=== PATIENT | male | born 1970 | race Caucasian/White ===

== ENCOUNTER → 2018-07-31 | Outpatient (REF) | payer MEDICARE | LOC: M LAB LCGH 15:49 | PROVIDERS: ATTEND Orthopaedic Surgery | DX: S82.852A Displaced trimalleolar fracture of left lower leg, initial encounter for closed fracture (principal); W18.30XA Fall on same level, unspecified, initial encounter; Y92.009 Unspecified place in unspecified non-institutional (private) residence as the place of occurrence of the external cause ==

== ENCOUNTER 2022-05-29 10:20 | Inpatient (IN) | payer MEDICARE ==
[~2022-05-29] VITALS: Ht 182.9 cm; Wt 95.3 kg
[2022-05-29 15:20] VITALS: BP 188/90
[2022-05-29] MEDS ORDERED: ONDANSETRON 4MG TAB PO PRN (15:40)
[2022-05-29] MEDS ORDERED: ACETAMINOPHEN TAB 650MG DOSE (2X325MG) PO PRN (15:40)
[2022-05-29] MEDS ORDERED: GLUCOSE 4GM CHEW TABLET PO PRN (15:40)
[2022-05-29] MEDS ORDERED: DEXTROSE 50% 50ML SYRINGE IV PRN (15:40)
[2022-05-29] MEDS ORDERED: GLUCAGON INJ 1MG VIAL SC PRN (15:40)
[2022-05-29] MEDS ORDERED: BISACODYL 10MG SUPP PR PRN (15:40)
[2022-05-29] MEDS: LIDOCAINE 5% (LIDODERM) PATCH TD SCH (16:50)
[2022-05-29] MEDS: INSULIN LISPRO (NovoLOG) PER UNIT SC SCH ×2 (17:48→20:27)
[2022-05-29] MEDS: NICOTINE 21MG/24HR 1 EA TRANSDERMAL TD SCH (17:48)
[2022-05-29] MEDS ORDERED: METO100T5 PO (17:57)
[2022-05-29] MEDS ORDERED: ASPI81TA26 PO (17:57)
[2022-05-29] MEDS ORDERED: LANTINJ4 SC (17:57)
[2022-05-29] MEDS ORDERED: INSUHUMDS SC (17:57)
[2022-05-29] MEDS ORDERED: LIDO1PAD TOP (17:57)
[2022-05-29] MEDS ORDERED: ATOR80TA59 PO (17:57)
[2022-05-29] MEDS ORDERED: LEXA1TAB2 PO (17:57)
[2022-05-29] MEDS ORDERED: CLOP75TA99 PO (17:57)
[2022-05-29] MEDS ORDERED: GABA-283 PO (17:57)
[2022-05-29] MEDS ORDERED: PANT40TA29 PO (17:57)
[2022-05-29] MEDS ORDERED: HOME MED LIST COMPLETE! XX SCH (18:00)
[2022-05-29] MEDS ORDERED: **hydrALAZINE HCL** 25 MG TAB PO ONE (18:45)
[2022-05-29 20:00] VITALS: BP 142/67
[2022-05-29] MEDS: GABAPENTIN 400MG CAP PO SCH (20:22)
[2022-05-29] MEDS: HEPARIN SOD (PORCINE) 5000UNITS/ML 1ML VIAL/SYRINGE SC SCH (20:22)
[2022-05-29] MEDS: ATORVASTATIN 20 MG TAB PO SCH (20:23)
[2022-05-29] MEDS: METOPROLOL TARTRATE 100MG TAB PO SCH (20:26)
[2022-05-29] MEDS: DOCUSATE SODIUM 100MG CAPSULE PO SCH (20:27)
[2022-05-29] MEDS: SENNA 8.6 MG TAB (SENOKOT) PO SCH (20:27)
[2022-05-29] MEDS ORDERED: GABAPENTIN 400MG CAP PO SCH (21:00)
[2022-05-29] MEDS ORDERED: **hydrALAZINE HCL** 25 MG TAB PO SCH (22:00)
[2022-05-30] MEDS: **hydrALAZINE HCL** 25 MG TAB PO SCH ×3 (05:26→21:12)
[2022-05-30 06:00] VITALS: BP 180/80
[2022-05-30 06:11] LABS: BASO % 0.7 % (0.0-1.0); EOS # 0.2 10^3/uL (0.0-0.5); EOS % 3.2 % (0.0-3.0); HEMATOCRIT 36.5 % (42.0-52.0); HEMOGLOBIN 12.7 g/dl (13.5-17.5); LYMPH # 2.1 10^3/uL (1.5-5.0); LYMPH % 35.2 % (24.0-44.0); MEAN CORPUSCULAR HEMOGLOBIN 30.8 pg (27.0-33.0); MEAN CORPUSCULAR HGB CONC 34.8 g/dl (32.0-36.5); MEAN CORPUSCULAR VOLUME 88.6 fl (80.0-96.0); MONO # 0.4 10^3/uL (0.0-0.8); NEUTROPHILS # 3.2 10^3/uL (1.5-8.5); NEUTROPHILS % 53.4 % (36.0-66.0); PLATELET COUNT, AUTOMATED 209 10^3/uL (150-450); RED BLOOD COUNT 4.12 10^6/uL (4.30-6.10)
[2022-05-30] MEDS: METOPROLOL TARTRATE 100MG TAB PO SCH ×2 (06:23→21:13)
[2022-05-30 06:34] LABS: ALBUMIN 1.8 G/DL (3.2-5.2); ALKALINE PHOSPHATASE 86 U/L (46-116); ALT/SGPT 10 U/L (7.0-40); AST/SGOT 17 U/L (<34); BILIRUBIN,TOTAL 0.3 MG/DL (0.3-1.2); BLOOD UREA NITROGEN 23 MG/DL (9-23); CALCIUM LEVEL 8.1 MG/DL (8.5-10.1); CARBON DIOXIDE LEVEL 28 MMOL/L (20-31); CHLORIDE LEVEL 109 MMOL/L (98-107); CREATININE FOR GFR 1.03 MG/DL (0.70-1.30); GLOMERULAR FILTRATION RATE > 60.0 (>56); GLUCOSE, FASTING 197 MG/DL (60-100); POTASSIUM SERUM 4.1 MMOL/L (3.5-5.1); SODIUM LEVEL 140 MMOL/L (136-145); TOTAL PROTEIN 5.1 G/DL (5.7-8.2)
[2022-05-30] MEDS: LEVEMIR (INSULIN DETEMIR) 1 UNITS/0.01ML SC SCH (08:12)
[2022-05-30] MEDS: HEPARIN SOD (PORCINE) 5000UNITS/ML 1ML VIAL/SYRINGE SC SCH ×2 (08:14→21:14)
[2022-05-30] MEDS: MULTIVITAMINS/MINERALS THERAP 1 TAB PO SCH (08:15)
[2022-05-30] MEDS: INSULIN LISPRO (NovoLOG) PER UNIT SC SCH ×4 (08:15→21:00)
[2022-05-30] MEDS: GABAPENTIN 400MG CAP PO SCH ×2 (08:15→21:12)
[2022-05-30] MEDS: PANTOPRAZOLE 40MG TAB (PROTONIX) PO SCH (08:16)
[2022-05-30] MEDS: CLOPIDOGREL 75 MG TAB PO SCH (08:16)
[2022-05-30] MEDS: ASPIRIN 81MG ENTERIC TABLET PO SCH (08:16)
[2022-05-30] MEDS: DOCUSATE SODIUM 100MG CAPSULE PO SCH ×2 (08:16→21:13)
[2022-05-30] MEDS: NICOTINE 21MG/24HR 1 EA TRANSDERMAL TD SCH (08:17)
[2022-05-30] MEDS: LIDOCAINE 5% (LIDODERM) PATCH TD SCH (08:17)
[2022-05-30] MEDS ORDERED: **hydrALAZINE HCL** 25 MG TAB PO ONE (08:20)
[2022-05-30] MEDS ORDERED: ESCITALOPRAM OXALATE 10 MG TAB (LEXAPRO) PO SCH (09:00)
[2022-05-30] MEDS ORDERED: FLUBLOK(EGG FREE)(QUAD)INFLUENZA VACC 0.5ML SYRINGE 18YRS & OLDER IM.IMMUN ONE (09:00)
[2022-05-30] MEDS ORDERED: LIDOCAINE 5% (LIDODERM) PATCH TD SCH (09:00)
[2022-05-30 14:00] VITALS: BP 152/84
[2022-05-30] MEDS: MECLIZINE 12.5 MG TAB PO SCH ×2 (14:00→21:12)
[2022-05-30] MEDS: MAGIC MOUTHWASH SUSPENSION BTL SSP SCH (17:35)
[2022-05-30 20:00] VITALS: BP 158/72
[2022-05-30] MEDS: SENNA 8.6 MG TAB (SENOKOT) PO SCH (21:00)
[2022-05-30] MEDS: ATORVASTATIN 20 MG TAB PO SCH (21:13)
[2022-05-31 05:41] VITALS: BP 156/78
[2022-05-31] MEDS: **hydrALAZINE HCL** 25 MG TAB PO SCH ×3 (05:54→21:06)
[2022-05-31] MEDS: MAGIC MOUTHWASH SUSPENSION BTL SSP SCH ×3 (07:37→17:23)
[2022-05-31] MEDS: INSULIN LISPRO (NovoLOG) PER UNIT SC SCH ×4 (07:37→21:00)
[2022-05-31] MEDS: LEVEMIR (INSULIN DETEMIR) 1 UNITS/0.01ML SC SCH ×2 (07:37→21:05)
[2022-05-31] MEDS: METOPROLOL TARTRATE 100MG TAB PO SCH ×2 (07:38→21:06)
[2022-05-31] MEDS: LIDOCAINE 5% (LIDODERM) PATCH TD SCH (07:38)
[2022-05-31] MEDS: NICOTINE 21MG/24HR 1 EA TRANSDERMAL TD SCH (07:38)
[2022-05-31] MEDS: CLOPIDOGREL 75 MG TAB PO SCH (07:38)
[2022-05-31] MEDS: MULTIVITAMINS/MINERALS THERAP 1 TAB PO SCH (07:38)
[2022-05-31] MEDS: MECLIZINE 12.5 MG TAB PO SCH (07:39)
[2022-05-31] MEDS: LOSARTAN 50MG TABLET PO SCH (07:39)
[2022-05-31] MEDS: PANTOPRAZOLE 40MG TAB (PROTONIX) PO SCH (07:39)
[2022-05-31] MEDS: DULoxetine 20MG CAP (CYMBALTA) PO SCH (07:39)
[2022-05-31] MEDS: ASPIRIN 81MG ENTERIC TABLET PO SCH (07:39)
[2022-05-31] MEDS: GABAPENTIN 400MG CAP PO SCH ×2 (07:39→21:06)
[2022-05-31] MEDS: ESCITALOPRAM OXALATE 10 MG TAB (LEXAPRO) PO SCH (07:40)
[2022-05-31] MEDS: DOCUSATE SODIUM 100MG CAPSULE PO SCH ×2 (07:40→21:06)
[2022-05-31] MEDS: HEPARIN SOD (PORCINE) 5000UNITS/ML 1ML VIAL/SYRINGE SC SCH ×2 (09:23→21:05)
[2022-05-31 12:21] LABS: BASO % 0.5 % (0.0-1.0); EOS # 0.2 10^3/uL (0.0-0.5); EOS % 2.7 % (0.0-3.0); HEMATOCRIT 32.3 % (42.0-52.0); HEMOGLOBIN 11.2 g/dl (13.5-17.5); LYMPH # 2.1 10^3/uL (1.5-5.0); LYMPH % 35.7 % (24.0-44.0); MEAN CORPUSCULAR HEMOGLOBIN 30.8 pg (27.0-33.0); MEAN CORPUSCULAR HGB CONC 34.7 g/dl (32.0-36.5); MEAN CORPUSCULAR VOLUME 88.7 fl (80.0-96.0); MONO # 0.6 10^3/uL (0.0-0.8); MONO % 9.6 % (2.0-8.0); NEUTROPHILS % 51.2 % (36.0-66.0); PLATELET COUNT, AUTOMATED 201 10^3/uL (150-450); RED BLOOD COUNT 3.64 10^6/uL (4.30-6.10); WHITE BLOOD COUNT 5.9 10^3/uL (4.0-10.0)
[2022-05-31 12:46] LABS: BLOOD UREA NITROGEN 25 MG/DL (9-23); CALCIUM LEVEL 7.7 MG/DL (8.5-10.1); CARBON DIOXIDE LEVEL 28 MMOL/L (20-31); CHLORIDE LEVEL 109 MMOL/L (98-107); GLOMERULAR FILTRATION RATE > 60.0 (>56); GLUCOSE, FASTING 117 MG/DL (60-100); POTASSIUM SERUM 4.2 MMOL/L (3.5-5.1); SODIUM LEVEL 140 MMOL/L (136-145)
[2022-05-31 14:12] VITALS: BP 166/82
[2022-05-31] MEDS: guaiFENesin 200 MG TAB PO SCH ×2 (14:17→21:05)
[2022-05-31] MEDS: COMBIVENT RESPIMAT 100-20MCG INHALER 4GM INH SCH ×2 (14:50→20:02)
[2022-05-31] MEDS: MECLIZINE 25 MG TABLET PO SCH ×2 (17:22→21:06)
[2022-05-31 20:00] VITALS: BP 147/74
[2022-05-31] MEDS: SENNA 8.6 MG TAB (SENOKOT) PO SCH (21:00)
[2022-05-31] MEDS: ATORVASTATIN 20 MG TAB PO SCH (21:06)
[2022-06-01 06:00] VITALS: BP 164/86
[2022-06-01] MEDS: **hydrALAZINE HCL** 25 MG TAB PO SCH ×3 (06:02→20:28)
[2022-06-01 06:39] VITALS: BP 142/76
[2022-06-01] MEDS: INSULIN LISPRO (NovoLOG) PER UNIT SC SCH ×4 (07:30→21:00)
[2022-06-01] MEDS: LEVEMIR (INSULIN DETEMIR) 1 UNITS/0.01ML SC SCH ×2 (08:57→20:29)
[2022-06-01] MEDS: NICOTINE 21MG/24HR 1 EA TRANSDERMAL TD SCH (08:59)
[2022-06-01] MEDS: MECLIZINE 25 MG TABLET PO SCH ×3 (08:59→20:27)
[2022-06-01] MEDS: DULoxetine 20MG CAP (CYMBALTA) PO SCH (09:00)
[2022-06-01] MEDS: DOCUSATE SODIUM 100MG CAPSULE PO SCH ×2 (09:00→20:28)
[2022-06-01] MEDS: LOSARTAN 50MG TABLET PO SCH (09:00)
[2022-06-01] MEDS: CLOPIDOGREL 75 MG TAB PO SCH (09:01)
[2022-06-01] MEDS: ESCITALOPRAM OXALATE 10 MG TAB (LEXAPRO) PO SCH (09:01)
[2022-06-01] MEDS: ASPIRIN 81MG ENTERIC TABLET PO SCH (09:01)
[2022-06-01] MEDS: METOPROLOL TARTRATE 100MG TAB PO SCH ×2 (09:01→20:29)
[2022-06-01] MEDS: GABAPENTIN 400MG CAP PO SCH ×2 (09:01→20:28)
[2022-06-01] MEDS: guaiFENesin 200 MG TAB PO SCH ×2 (09:02→20:28)
[2022-06-01] MEDS: HEPARIN SOD (PORCINE) 5000UNITS/ML 1ML VIAL/SYRINGE SC SCH ×2 (09:02→20:29)
[2022-06-01] MEDS: MULTIVITAMINS/MINERALS THERAP 1 TAB PO SCH (09:02)
[2022-06-01] MEDS: PANTOPRAZOLE 40MG TAB (PROTONIX) PO SCH (09:02)
[2022-06-01] MEDS: LIDOCAINE 5% (LIDODERM) PATCH TD SCH (09:02)
[2022-06-01] MEDS: COMBIVENT RESPIMAT 100-20MCG INHALER 4GM INH SCH ×3 (09:30→20:40)
[2022-06-01] MEDS: MAGIC MOUTHWASH SUSPENSION BTL SSP SCH ×3 (11:46→17:03)
[2022-06-01 14:00] VITALS: BP 141/66
[2022-06-01 20:00] VITALS: BP 163/79
[2022-06-01] MEDS: ATORVASTATIN 20 MG TAB PO SCH (20:28)
[2022-06-01] MEDS: SENNA 8.6 MG TAB (SENOKOT) PO SCH (21:00)
[2022-06-02 06:00] VITALS: BP 152/85
[2022-06-02] MEDS: **hydrALAZINE HCL** 25 MG TAB PO SCH ×3 (06:15→20:30)
[2022-06-02] MEDS: COMBIVENT RESPIMAT 100-20MCG INHALER 4GM INH SCH ×3 (07:33→20:39)
[2022-06-02] MEDS: MAGIC MOUTHWASH SUSPENSION BTL SSP SCH ×3 (07:36→16:18)
[2022-06-02] MEDS: INSULIN LISPRO (NovoLOG) PER UNIT SC SCH ×4 (07:36→21:00)
[2022-06-02] MEDS: DOCUSATE SODIUM 100MG CAPSULE PO SCH ×2 (07:37→20:28)
[2022-06-02] MEDS: MECLIZINE 25 MG TABLET PO SCH ×3 (07:37→20:28)
[2022-06-02] MEDS: ESCITALOPRAM OXALATE 10 MG TAB (LEXAPRO) PO SCH (07:38)
[2022-06-02] MEDS: LOSARTAN 50MG TABLET PO SCH (07:38)
[2022-06-02] MEDS: ASPIRIN 81MG ENTERIC TABLET PO SCH (07:38)
[2022-06-02] MEDS: DULoxetine 20MG CAP (CYMBALTA) PO SCH (07:38)
[2022-06-02] MEDS: METOPROLOL TARTRATE 100MG TAB PO SCH ×2 (07:39→20:29)
[2022-06-02] MEDS: MULTIVITAMINS/MINERALS THERAP 1 TAB PO SCH (07:39)
[2022-06-02] MEDS: guaiFENesin 200 MG TAB PO SCH ×2 (07:39→20:28)
[2022-06-02] MEDS: CLOPIDOGREL 75 MG TAB PO SCH (07:39)
[2022-06-02] MEDS: GABAPENTIN 400MG CAP PO SCH ×2 (07:39→20:28)
[2022-06-02] MEDS: PANTOPRAZOLE 40MG TAB (PROTONIX) PO SCH (07:39)
[2022-06-02] MEDS: HEPARIN SOD (PORCINE) 5000UNITS/ML 1ML VIAL/SYRINGE SC SCH ×2 (07:40→20:30)
[2022-06-02] MEDS: LIDOCAINE 5% (LIDODERM) PATCH TD SCH (07:41)
[2022-06-02] MEDS: NICOTINE 21MG/24HR 1 EA TRANSDERMAL TD SCH (07:41)
[2022-06-02] MEDS: LEVEMIR (INSULIN DETEMIR) 1 UNITS/0.01ML SC SCH ×2 (07:41→20:30)
[2022-06-02 14:06] VITALS: BP 127/66
[2022-06-02 20:00] VITALS: BP 131/68
[2022-06-02] MEDS: ATORVASTATIN 20 MG TAB PO SCH (20:29)
[2022-06-02] MEDS: SENNA 8.6 MG TAB (SENOKOT) PO SCH (21:00)
[2022-06-03] MEDS: **hydrALAZINE HCL** 25 MG TAB PO SCH ×3 (05:57→21:54)
[2022-06-03 06:00] VITALS: BP 132/68
[2022-06-03 07:25] LABS: BASO % 0.5 % (0.0-1.0); EOS # 0.2 10^3/uL (0.0-0.5); EOS % 3.3 % (0.0-3.0); HEMATOCRIT 35.5 % (42.0-52.0); LYMPH % 36.9 % (24.0-44.0); MEAN CORPUSCULAR HEMOGLOBIN 30.6 pg (27.0-33.0); MEAN CORPUSCULAR HGB CONC 33.8 g/dl (32.0-36.5); MEAN CORPUSCULAR VOLUME 90.6 fl (80.0-96.0); MONO # 0.3 10^3/uL (0.0-0.8); MONO % 5.9 % (2.0-8.0); NEUTROPHILS # 2.9 10^3/uL (1.5-8.5); NEUTROPHILS % 52.9 % (36.0-66.0); PLATELET COUNT, AUTOMATED 181 10^3/uL (150-450); RED BLOOD COUNT 3.92 10^6/uL (4.30-6.10); WHITE BLOOD COUNT 5.5 10^3/uL (4.0-10.0)
[2022-06-03 07:55] LABS: BLOOD UREA NITROGEN 26 MG/DL (9-23); CALCIUM LEVEL 7.8 MG/DL (8.5-10.1); CARBON DIOXIDE LEVEL 27 MMOL/L (20-31); CHLORIDE LEVEL 110 MMOL/L (98-107); CREATININE FOR GFR 1.11 MG/DL (0.70-1.30); GLOMERULAR FILTRATION RATE > 60.0 (>56); GLUCOSE, FASTING 214 MG/DL (60-100); POTASSIUM SERUM 4.4 MMOL/L (3.5-5.1); SODIUM LEVEL 140 MMOL/L (136-145)
[2022-06-03] MEDS: COMBIVENT RESPIMAT 100-20MCG INHALER 4GM INH SCH ×3 (08:00→19:34)
[2022-06-03] MEDS: LEVEMIR (INSULIN DETEMIR) 1 UNITS/0.01ML SC SCH ×2 (08:32→20:20)
[2022-06-03] MEDS: INSULIN LISPRO (NovoLOG) PER UNIT SC SCH ×4 (08:32→20:20)
[2022-06-03] MEDS: DOCUSATE SODIUM 100MG CAPSULE PO SCH ×2 (09:00→20:20)
[2022-06-03] MEDS: MULTIVITAMINS/MINERALS THERAP 1 TAB PO SCH (09:01)
[2022-06-03] MEDS: HEPARIN SOD (PORCINE) 5000UNITS/ML 1ML VIAL/SYRINGE SC SCH ×2 (09:01→20:20)
[2022-06-03] MEDS: DULoxetine 20MG CAP (CYMBALTA) PO SCH (09:01)
[2022-06-03] MEDS: CLOPIDOGREL 75 MG TAB PO SCH (09:01)
[2022-06-03] MEDS: GABAPENTIN 400MG CAP PO SCH ×2 (09:01→20:19)
[2022-06-03] MEDS: MECLIZINE 25 MG TABLET PO SCH ×3 (09:02→20:19)
[2022-06-03] MEDS: guaiFENesin 200 MG TAB PO SCH ×2 (09:02→20:19)
[2022-06-03] MEDS: ASPIRIN 81MG ENTERIC TABLET PO SCH (09:02)
[2022-06-03] MEDS: ESCITALOPRAM OXALATE 10 MG TAB (LEXAPRO) PO SCH (09:02)
[2022-06-03] MEDS: LOSARTAN 50MG TABLET PO SCH (09:02)
[2022-06-03] MEDS: METOPROLOL TARTRATE 100MG TAB PO SCH ×2 (09:03→20:19)
[2022-06-03] MEDS: PANTOPRAZOLE 40MG TAB (PROTONIX) PO SCH (09:03)
[2022-06-03] MEDS: NICOTINE 21MG/24HR 1 EA TRANSDERMAL TD SCH (09:03)
[2022-06-03] MEDS: LIDOCAINE 5% (LIDODERM) PATCH TD SCH (09:04)
[2022-06-03] MEDS: MAGIC MOUTHWASH SUSPENSION BTL SSP SCH ×3 (09:04→17:25)
[2022-06-03 13:56] VITALS: BP 129/65
[2022-06-03 19:44] VITALS: BP 128/66
[2022-06-03] MEDS: ATORVASTATIN 20 MG TAB PO SCH (20:19)
[2022-06-03] MEDS: SENNA 8.6 MG TAB (SENOKOT) PO SCH (20:20)
[2022-06-04] MEDS: **hydrALAZINE HCL** 25 MG TAB PO SCH ×3 (06:00→21:41)
[2022-06-04 06:13] VITALS: BP 136/68
[2022-06-04] MEDS: COMBIVENT RESPIMAT 100-20MCG INHALER 4GM INH SCH ×3 (07:09→20:01)
[2022-06-04] MEDS: MAGIC MOUTHWASH SUSPENSION BTL SSP SCH ×3 (07:30→16:59)
[2022-06-04] MEDS: INSULIN LISPRO (NovoLOG) PER UNIT SC SCH ×4 (07:30→21:00)
[2022-06-04] MEDS: LEVEMIR (INSULIN DETEMIR) 1 UNITS/0.01ML SC SCH ×2 (09:00→21:39)
[2022-06-04] MEDS: NICOTINE 21MG/24HR 1 EA TRANSDERMAL TD SCH (09:53)
[2022-06-04] MEDS: HEPARIN SOD (PORCINE) 5000UNITS/ML 1ML VIAL/SYRINGE SC SCH ×2 (09:54→21:38)
[2022-06-04] MEDS: ASPIRIN 81MG ENTERIC TABLET PO SCH (09:54)
[2022-06-04] MEDS: MULTIVITAMINS/MINERALS THERAP 1 TAB PO SCH (09:54)
[2022-06-04] MEDS: LIDOCAINE 5% (LIDODERM) PATCH TD SCH (09:54)
[2022-06-04] MEDS: DOCUSATE SODIUM 100MG CAPSULE PO SCH ×2 (09:54→21:00)
[2022-06-04] MEDS: GABAPENTIN 400MG CAP PO SCH ×2 (09:54→21:39)
[2022-06-04] MEDS: DULoxetine 20MG CAP (CYMBALTA) PO SCH (09:54)
[2022-06-04] MEDS: guaiFENesin 200 MG TAB PO SCH ×2 (09:54→21:39)
[2022-06-04] MEDS: PANTOPRAZOLE 40MG TAB (PROTONIX) PO SCH (09:54)
[2022-06-04] MEDS: ESCITALOPRAM OXALATE 10 MG TAB (LEXAPRO) PO SCH (09:55)
[2022-06-04] MEDS: LOSARTAN 50MG TABLET PO SCH (09:55)
[2022-06-04] MEDS: METOPROLOL TARTRATE 100MG TAB PO SCH ×2 (09:55→21:40)
[2022-06-04] MEDS: MECLIZINE 25 MG TABLET PO SCH ×3 (09:55→21:39)
[2022-06-04] MEDS: CLOPIDOGREL 75 MG TAB PO SCH (09:55)
[2022-06-04 14:00] VITALS: BP 128/66
[2022-06-04 20:00] VITALS: BP 138/70
[2022-06-04] MEDS: SENNA 8.6 MG TAB (SENOKOT) PO SCH (21:00)
[2022-06-04] MEDS: ATORVASTATIN 20 MG TAB PO SCH (21:40)
[2022-06-05] MEDS: **hydrALAZINE HCL** 25 MG TAB PO SCH ×3 (05:44→21:50)
[2022-06-05 06:00] VITALS: BP 130/62
[2022-06-05 06:21] LABS: BASO % 0.5 % (0.0-1.0); EOS # 0.2 10^3/uL (0.0-0.5); HEMATOCRIT 31.7 % (42.0-52.0); HEMOGLOBIN 10.6 g/dl (13.5-17.5); LYMPH # 2.1 10^3/uL (1.5-5.0); LYMPH % 33.9 % (24.0-44.0); MEAN CORPUSCULAR HEMOGLOBIN 30.5 pg (27.0-33.0); MEAN CORPUSCULAR HGB CONC 33.4 g/dl (32.0-36.5); MEAN CORPUSCULAR VOLUME 91.1 fl (80.0-96.0); MONO # 0.4 10^3/uL (0.0-0.8); MONO % 6.8 % (2.0-8.0); NEUTROPHILS # 3.4 10^3/uL (1.5-8.5); NEUTROPHILS % 55.3 % (36.0-66.0); PLATELET COUNT, AUTOMATED 174 10^3/uL (150-450); RED BLOOD COUNT 3.48 10^6/uL (4.30-6.10); WHITE BLOOD COUNT 6.1 10^3/uL (4.0-10.0)
[2022-06-05 06:49] LABS: BLOOD UREA NITROGEN 24 MG/DL (9-23); CALCIUM LEVEL 7.8 MG/DL (8.5-10.1); CARBON DIOXIDE LEVEL 29 MMOL/L (20-31); CHLORIDE LEVEL 110 MMOL/L (98-107); CREATININE FOR GFR 1.08 MG/DL (0.70-1.30); GLOMERULAR FILTRATION RATE > 60.0 (>56); GLUCOSE, FASTING 156 MG/DL (60-100); SODIUM LEVEL 142 MMOL/L (136-145)
[2022-06-05] MEDS: COMBIVENT RESPIMAT 100-20MCG INHALER 4GM INH SCH ×3 (09:02→19:49)
[2022-06-05] MEDS: guaiFENesin 200 MG TAB PO SCH ×2 (09:10→21:50)
[2022-06-05] MEDS: LEVEMIR (INSULIN DETEMIR) 1 UNITS/0.01ML SC SCH ×2 (09:10→21:48)
[2022-06-05] MEDS: GABAPENTIN 400MG CAP PO SCH ×2 (09:10→21:50)
[2022-06-05] MEDS: HEPARIN SOD (PORCINE) 5000UNITS/ML 1ML VIAL/SYRINGE SC SCH ×2 (09:11→21:51)
[2022-06-05] MEDS: INSULIN LISPRO (NovoLOG) PER UNIT SC SCH ×4 (09:11→21:00)
[2022-06-05] MEDS: DOCUSATE SODIUM 100MG CAPSULE PO SCH ×2 (09:13→21:50)
[2022-06-05] MEDS: ASPIRIN 81MG ENTERIC TABLET PO SCH (09:14)
[2022-06-05] MEDS: MECLIZINE 25 MG TABLET PO SCH ×3 (09:14→21:49)
[2022-06-05] MEDS: CLOPIDOGREL 75 MG TAB PO SCH (09:14)
[2022-06-05] MEDS: DULoxetine 20MG CAP (CYMBALTA) PO SCH (09:14)
[2022-06-05] MEDS: PANTOPRAZOLE 40MG TAB (PROTONIX) PO SCH (09:14)
[2022-06-05] MEDS: MULTIVITAMINS/MINERALS THERAP 1 TAB PO SCH (09:14)
[2022-06-05] MEDS: LOSARTAN 50MG TABLET PO SCH (09:15)
[2022-06-05] MEDS: METOPROLOL TARTRATE 100MG TAB PO SCH ×2 (09:15→21:51)
[2022-06-05] MEDS: ESCITALOPRAM OXALATE 10 MG TAB (LEXAPRO) PO SCH (09:15)
[2022-06-05] MEDS: NICOTINE 21MG/24HR 1 EA TRANSDERMAL TD SCH (09:16)
[2022-06-05] MEDS: LIDOCAINE 5% (LIDODERM) PATCH TD SCH (09:16)
[2022-06-05] MEDS: MAGIC MOUTHWASH SUSPENSION BTL SSP SCH ×3 (09:17→17:30)
[2022-06-05] MEDS ORDERED: FIORICET TAB PO PRN (13:25)
[2022-06-05 20:00] VITALS: BP 133/63
[2022-06-05] MEDS: SENNA 8.6 MG TAB (SENOKOT) PO SCH (21:50)
[2022-06-05] MEDS: ATORVASTATIN 20 MG TAB PO SCH (21:51)
[2022-06-06 06:00] VITALS: BP 131/69
[2022-06-06] MEDS: **hydrALAZINE HCL** 25 MG TAB PO SCH ×3 (06:00→20:27)
[2022-06-06] MEDS: COMBIVENT RESPIMAT 100-20MCG INHALER 4GM INH SCH ×3 (07:15→19:59)
[2022-06-06] MEDS: HEPARIN SOD (PORCINE) 5000UNITS/ML 1ML VIAL/SYRINGE SC SCH ×2 (09:14→20:31)
[2022-06-06] MEDS: ASPIRIN 81MG ENTERIC TABLET PO SCH (09:15)
[2022-06-06] MEDS: guaiFENesin 200 MG TAB PO SCH ×2 (09:15→20:30)
[2022-06-06] MEDS: PANTOPRAZOLE 40MG TAB (PROTONIX) PO SCH (09:16)
[2022-06-06] MEDS: CLOPIDOGREL 75 MG TAB PO SCH (09:16)
[2022-06-06] MEDS: GABAPENTIN 400MG CAP PO SCH ×2 (09:16→20:30)
[2022-06-06] MEDS: METOPROLOL TARTRATE 100MG TAB PO SCH ×2 (09:16→20:31)
[2022-06-06] MEDS: MECLIZINE 25 MG TABLET PO SCH ×3 (09:17→20:30)
[2022-06-06 09:20] VITALS: BP 119/65
[2022-06-06] MEDS: LOSARTAN 50MG TABLET PO SCH (09:21)
[2022-06-06] MEDS: DOCUSATE SODIUM 100MG CAPSULE PO SCH ×2 (09:21→20:31)
[2022-06-06] MEDS: MULTIVITAMINS/MINERALS THERAP 1 TAB PO SCH (09:22)
[2022-06-06] MEDS: DULoxetine 30MG CAPSULE (CYMBALTA) PO SCH (09:22)
[2022-06-06] MEDS: LEVEMIR (INSULIN DETEMIR) 1 UNITS/0.01ML SC SCH ×2 (09:23→20:32)
[2022-06-06] MEDS: INSULIN LISPRO (NovoLOG) PER UNIT SC SCH ×4 (09:23→20:26)
[2022-06-06] MEDS: MAGIC MOUTHWASH SUSPENSION BTL SSP SCH ×3 (09:24→17:13)
[2022-06-06] MEDS: LIDOCAINE 5% (LIDODERM) PATCH TD SCH (09:24)
[2022-06-06] MEDS: NICOTINE 21MG/24HR 1 EA TRANSDERMAL TD SCH (09:26)
[2022-06-06 14:00] VITALS: BP 119/57
[2022-06-06 20:00] VITALS: BP 138/66
[2022-06-06] MEDS: ATORVASTATIN 20 MG TAB PO SCH (20:30)
[2022-06-06] MEDS: SENNA 8.6 MG TAB (SENOKOT) PO SCH (20:31)
[2022-06-07] MEDS: **hydrALAZINE HCL** 25 MG TAB PO SCH ×3 (05:30→21:07)
[2022-06-07 06:00] VITALS: BP 109/60
[2022-06-07 06:28] LABS: BASO % 0.5 % (0.0-1.0); EOS # 0.3 10^3/uL (0.0-0.5); EOS % 4.1 % (0.0-3.0); HEMATOCRIT 29.7 % (42.0-52.0); LYMPH # 2.3 10^3/uL (1.5-5.0); LYMPH % 35.1 % (24.0-44.0); MEAN CORPUSCULAR HEMOGLOBIN 30.8 pg (27.0-33.0); MEAN CORPUSCULAR HGB CONC 33.7 g/dl (32.0-36.5); MEAN CORPUSCULAR VOLUME 91.4 fl (80.0-96.0); MONO # 0.5 10^3/uL (0.0-0.8); MONO % 7.7 % (2.0-8.0); NEUTROPHILS # 3.4 10^3/uL (1.5-8.5); NEUTROPHILS % 51.5 % (36.0-66.0); PLATELET COUNT, AUTOMATED 166 10^3/uL (150-450); RED BLOOD COUNT 3.25 10^6/uL (4.30-6.10); WHITE BLOOD COUNT 6.5 10^3/uL (4.0-10.0)
[2022-06-07 06:52] LABS: BLOOD UREA NITROGEN 25 MG/DL (9-23); CALCIUM LEVEL 7.4 MG/DL (8.5-10.1); CARBON DIOXIDE LEVEL 26 MMOL/L (20-31); CHLORIDE LEVEL 109 MMOL/L (98-107); GLOMERULAR FILTRATION RATE > 60.0 (>56); GLUCOSE, FASTING 178 MG/DL (60-100); POTASSIUM SERUM 4.7 MMOL/L (3.5-5.1); SODIUM LEVEL 140 MMOL/L (136-145)
[2022-06-07] MEDS: MAGIC MOUTHWASH SUSPENSION BTL SSP SCH ×3 (07:30→17:14)
[2022-06-07] MEDS: COMBIVENT RESPIMAT 100-20MCG INHALER 4GM INH SCH ×3 (08:00→19:32)
[2022-06-07] MEDS: LOSARTAN 50MG TABLET PO SCH (09:00)
[2022-06-07] MEDS: METOPROLOL TARTRATE 100MG TAB PO SCH ×2 (09:00→21:08)
[2022-06-07] MEDS: LEVEMIR (INSULIN DETEMIR) 1 UNITS/0.01ML SC SCH ×2 (09:17→21:09)
[2022-06-07] MEDS: CLOPIDOGREL 75 MG TAB PO SCH (09:18)
[2022-06-07] MEDS: HEPARIN SOD (PORCINE) 5000UNITS/ML 1ML VIAL/SYRINGE SC SCH ×2 (09:18→21:08)
[2022-06-07] MEDS: INSULIN LISPRO (NovoLOG) PER UNIT SC SCH ×4 (09:18→21:00)
[2022-06-07] MEDS: NICOTINE 21MG/24HR 1 EA TRANSDERMAL TD SCH (09:18)
[2022-06-07] MEDS: GABAPENTIN 400MG CAP PO SCH ×2 (09:19→21:08)
[2022-06-07] MEDS: DULoxetine 30MG CAPSULE (CYMBALTA) PO SCH (09:19)
[2022-06-07] MEDS: MULTIVITAMINS/MINERALS THERAP 1 TAB PO SCH (09:19)
[2022-06-07] MEDS: guaiFENesin 200 MG TAB PO SCH ×2 (09:19→21:08)
[2022-06-07] MEDS: MECLIZINE 25 MG TABLET PO SCH ×3 (09:19→21:07)
[2022-06-07] MEDS: DOCUSATE SODIUM 100MG CAPSULE PO SCH ×2 (09:19→21:08)
[2022-06-07] MEDS: ASPIRIN 81MG ENTERIC TABLET PO SCH (09:19)
[2022-06-07] MEDS: PANTOPRAZOLE 40MG TAB (PROTONIX) PO SCH (09:19)
[2022-06-07] MEDS: LIDOCAINE 5% (LIDODERM) PATCH TD SCH (09:20)
[2022-06-07 14:08] VITALS: BP 125/60
[2022-06-07 20:00] VITALS: BP 138/73
[2022-06-07] MEDS: SENNA 8.6 MG TAB (SENOKOT) PO SCH (21:00)
[2022-06-07] MEDS: ATORVASTATIN 20 MG TAB PO SCH (21:07)
[2022-06-08] MEDS: **hydrALAZINE HCL** 25 MG TAB PO SCH ×3 (05:52→22:00)
[2022-06-08 06:00] VITALS: BP 139/71
[2022-06-08] MEDS: INSULIN LISPRO (NovoLOG) PER UNIT SC SCH ×4 (07:30→21:00)
[2022-06-08] MEDS: COMBIVENT RESPIMAT 100-20MCG INHALER 4GM INH SCH ×3 (07:52→19:36)
[2022-06-08] MEDS: LIDOCAINE 5% (LIDODERM) PATCH TD SCH (08:16)
[2022-06-08] MEDS: HEPARIN SOD (PORCINE) 5000UNITS/ML 1ML VIAL/SYRINGE SC SCH ×2 (08:16→21:48)
[2022-06-08] MEDS: NICOTINE 21MG/24HR 1 EA TRANSDERMAL TD SCH (08:16)
[2022-06-08] MEDS: LEVEMIR (INSULIN DETEMIR) 1 UNITS/0.01ML SC SCH ×2 (08:16→21:48)
[2022-06-08] MEDS: ASPIRIN 81MG ENTERIC TABLET PO SCH (08:17)
[2022-06-08] MEDS: MULTIVITAMINS/MINERALS THERAP 1 TAB PO SCH (08:17)
[2022-06-08] MEDS: DULoxetine 30MG CAPSULE (CYMBALTA) PO SCH (08:17)
[2022-06-08] MEDS: GABAPENTIN 400MG CAP PO SCH ×2 (08:17→21:47)
[2022-06-08] MEDS: PANTOPRAZOLE 40MG TAB (PROTONIX) PO SCH (08:17)
[2022-06-08] MEDS: DOCUSATE SODIUM 100MG CAPSULE PO SCH ×2 (08:17→21:46)
[2022-06-08] MEDS: MECLIZINE 25 MG TABLET PO SCH ×3 (08:17→21:46)
[2022-06-08] MEDS: CLOPIDOGREL 75 MG TAB PO SCH (08:17)
[2022-06-08] MEDS: LOSARTAN 50MG TABLET PO SCH (08:18)
[2022-06-08] MEDS: METOPROLOL TARTRATE 100MG TAB PO SCH ×2 (08:18→21:47)
[2022-06-08] MEDS: guaiFENesin 200 MG TAB PO SCH ×2 (08:18→21:00)
[2022-06-08] MEDS: MAGIC MOUTHWASH SUSPENSION BTL SSP SCH ×3 (08:20→17:00)
[2022-06-08 14:00] VITALS: BP 147/63
[2022-06-08 20:00] VITALS: BP 125/61
[2022-06-08] MEDS: SENNA 8.6 MG TAB (SENOKOT) PO SCH (21:00)
[2022-06-08] MEDS: ATORVASTATIN 20 MG TAB PO SCH (21:46)
[2022-06-09] MEDS: **hydrALAZINE HCL** 25 MG TAB PO SCH ×3 (05:55→21:09)
[2022-06-09 06:00] VITALS: BP 140/91
[2022-06-09] MEDS: INSULIN LISPRO (NovoLOG) PER UNIT SC SCH ×4 (07:17→21:00)
[2022-06-09] MEDS: COMBIVENT RESPIMAT 100-20MCG INHALER 4GM INH SCH ×3 (07:31→20:06)
[2022-06-09] MEDS: ASPIRIN 81MG ENTERIC TABLET PO SCH (08:26)
[2022-06-09] MEDS: MAGIC MOUTHWASH SUSPENSION BTL SSP SCH ×3 (08:26→16:52)
[2022-06-09] MEDS: MULTIVITAMINS/MINERALS THERAP 1 TAB PO SCH (08:27)
[2022-06-09] MEDS: CLOPIDOGREL 75 MG TAB PO SCH (08:27)
[2022-06-09] MEDS: GABAPENTIN 400MG CAP PO SCH ×2 (08:27→21:07)
[2022-06-09] MEDS: DOCUSATE SODIUM 100MG CAPSULE PO SCH ×2 (08:27→21:00)
[2022-06-09] MEDS: DULoxetine 30MG CAPSULE (CYMBALTA) PO SCH (08:27)
[2022-06-09] MEDS: METOPROLOL TARTRATE 100MG TAB PO SCH ×2 (08:28→21:08)
[2022-06-09] MEDS: PANTOPRAZOLE 40MG TAB (PROTONIX) PO SCH (08:28)
[2022-06-09] MEDS: guaiFENesin 200 MG TAB PO SCH ×2 (08:28→21:08)
[2022-06-09] MEDS: LOSARTAN 50MG TABLET PO SCH (08:28)
[2022-06-09] MEDS: MECLIZINE 25 MG TABLET PO SCH ×3 (08:28→21:08)
[2022-06-09] MEDS: HEPARIN SOD (PORCINE) 5000UNITS/ML 1ML VIAL/SYRINGE SC SCH ×2 (08:29→21:09)
[2022-06-09] MEDS: NICOTINE 21MG/24HR 1 EA TRANSDERMAL TD SCH (08:29)
[2022-06-09] MEDS: LIDOCAINE 5% (LIDODERM) PATCH TD SCH (08:29)
[2022-06-09] MEDS: LEVEMIR (INSULIN DETEMIR) 1 UNITS/0.01ML SC SCH ×2 (08:29→21:07)
[2022-06-09 12:10] VITALS: BP 128/60
[2022-06-09 20:00] VITALS: BP 126/63
[2022-06-09] MEDS: SENNA 8.6 MG TAB (SENOKOT) PO SCH (21:00)
[2022-06-09] MEDS: ATORVASTATIN 20 MG TAB PO SCH (21:07)
[2022-06-10] MEDS: **hydrALAZINE HCL** 25 MG TAB PO SCH (05:50)
[2022-06-10 06:00] VITALS: BP 131/72
[2022-06-10] MEDS: MAGIC MOUTHWASH SUSPENSION BTL SSP SCH ×2 (07:30→12:00)
[2022-06-10] MEDS: COMBIVENT RESPIMAT 100-20MCG INHALER 4GM INH SCH (07:37)
[2022-06-10 08:10] VITALS: BP 131/72
[2022-06-10] MEDS: MECLIZINE 25 MG TABLET PO SCH (08:10)
[2022-06-10] MEDS: METOPROLOL TARTRATE 100MG TAB PO SCH (08:10)
[2022-06-10] MEDS: DULoxetine 30MG CAPSULE (CYMBALTA) PO SCH (08:10)
[2022-06-10] MEDS: CLOPIDOGREL 75 MG TAB PO SCH (08:10)
[2022-06-10] MEDS: GABAPENTIN 400MG CAP PO SCH (08:10)
[2022-06-10] MEDS: MULTIVITAMINS/MINERALS THERAP 1 TAB PO SCH (08:10)
[2022-06-10] MEDS: LOSARTAN 50MG TABLET PO SCH (08:11)
[2022-06-10] MEDS: ASPIRIN 81MG ENTERIC TABLET PO SCH (08:11)
[2022-06-10] MEDS: DOCUSATE SODIUM 100MG CAPSULE PO SCH (08:11)
[2022-06-10] MEDS: guaiFENesin 200 MG TAB PO SCH (08:11)
[2022-06-10] MEDS: INSULIN LISPRO (NovoLOG) PER UNIT SC SCH ×2 (08:12→12:33)
[2022-06-10] MEDS: LEVEMIR (INSULIN DETEMIR) 1 UNITS/0.01ML SC SCH (08:12)
[2022-06-10] MEDS: NICOTINE 21MG/24HR 1 EA TRANSDERMAL TD SCH (08:13)
[2022-06-10] MEDS: HEPARIN SOD (PORCINE) 5000UNITS/ML 1ML VIAL/SYRINGE SC SCH (08:13)
[2022-06-10] MEDS: LIDOCAINE 5% (LIDODERM) PATCH TD SCH (08:13)
[2022-06-10] MEDS: PANTOPRAZOLE 40MG TAB (PROTONIX) PO SCH (08:13)
[2022-06-10] MEDS ORDERED: CYMB1CAP5 PO (08:51)
[2022-06-10] MEDS ORDERED: COZA50TA PO (08:51)
[2022-06-10] MEDS ORDERED: CLOP75TA99 PO (08:51)
[2022-06-10] MEDS ORDERED: PANT40TA29 PO (08:51)
[2022-06-10] MEDS ORDERED: HYDR25TA PO (08:51)
[2022-06-10] MEDS ORDERED: GABA-283 PO (08:51)
[2022-06-10] MEDS ORDERED: INSUHUMDS SC (08:51)
[2022-06-10] MEDS ORDERED: HYDR-643 PO (08:51)
[2022-06-10] MEDS ORDERED: LANTINJ4 SC (08:51)
[2022-06-10] MEDS ORDERED: METO100T5 PO (08:51)
[2022-06-10] MEDS ORDERED: MECL-86 PO (08:51)
[2022-06-10] MEDS ORDERED: ATOR80TA59 PO (08:51)
[2022-06-10] MEDS ORDERED: ASPI81TA26 PO (08:51)
== END 2022-06-10 12:50 | disposition home or self-care (01) | DRG 57 ==
LOC: M PM&R 14:50
PROVIDERS: ADMIT Physical Medicine & Rehabilitation; ATTEND Physical Medicine & Rehabilitation
DX: I69.351 Hemiplegia and hemiparesis following cerebral infarction affecting right dominant side (principal); K86.1 Other chronic pancreatitis; I10 Essential (primary) hypertension; R42 Dizziness and giddiness; E11.42 Type 2 diabetes mellitus with diabetic polyneuropathy; R26.89 Other abnormalities of gait and mobility; F17.200 Nicotine dependence, unspecified, uncomplicated; K76.0 Fatty (change of) liver, not elsewhere classified; I65.23 Occlusion and stenosis of bilateral carotid arteries; E78.5 Hyperlipidemia, unspecified; M54.50 Low back pain, unspecified; G89.29 Other chronic pain; F32.A Depression, unspecified; G47.33 Obstructive sleep apnea (adult) (pediatric); R01.1 Cardiac murmur, unspecified; Z74.09 Other reduced mobility; Z74.1 Need for assistance with personal care; Z79.4 Long term (current) use of insulin; Z79.02 Long term (current) use of antithrombotics/antiplatelets; Z79.82 Long term (current) use of aspirin; Z79.899 Other long term (current) drug therapy; Z88.8 Allergy status to other drugs, medicaments and biological substances; Z96.89 Presence of other specified functional implants

== ENCOUNTER 2024-03-05 10:20 | Inpatient (IN) | payer MEDICARE ==
[~2024-03-05] VITALS: Ht 182.9 cm; Wt 93.5 kg
[~2024-03-05 10:20] MED LIST: ASPI81TA26 PO; ATOR80TA59 PO; CLOP75TA99 PO; CYMB1CAP5 PO; GABA-284 PO; HYDR-643 PO; HYDR25TA88 PO; INSUHUMDS SC; LANTINJ4 SC; LEXA1TAB2 PO; LIDO1PAD TOP; LOSA-528 PO; MECL-86 PO; METO100T5 PO; PANT40TA29 PO
[2024-03-05 11:32] LABS: VENOUS BASE EXCESS 4.6 (-2.0-2.0); VENOUS HCO3 30.9 MMOL/L (23.0-27.0); VENOUS O2 SATURATION 90.6 % (60.0-80.0); VENOUS PARTIAL PRESSURE CO2 56.5 mmHg (38.0-50.0); VENOUS PARTIAL PRESSURE O2 62.9 mmHg (30.0-50.0); VENOUS PH 7.356 UNITS (7.330-7.430); VENOUS STANDARD HCO3 28.5 MMOL/L; VENOUS TOTAL CO2 32.7 MMOL/L (24.0-28.0)
[2024-03-05 11:40] LABS: BASO % 0.5 % (0.0-1.0); EOS # 0.3 10^3/uL (0.0-0.5); HEMATOCRIT 23.3 % (42.0-52.0); HEMOGLOBIN 7.2 g/dl (13.5-17.5); LYMPH # 0.8 10^3/uL (1.5-5.0); LYMPH % 11.7 % (24.0-44.0); MEAN CORPUSCULAR HEMOGLOBIN 31.2 pg (27.0-33.0); MEAN CORPUSCULAR HGB CONC 30.9 g/dl (32.0-36.5); MEAN CORPUSCULAR VOLUME 100.9 fl (80.0-96.0); MONO # 0.7 10^3/uL (0.0-0.8); MONO % 10.5 % (2.0-8.0); NEUTROPHILS # 4.6 10^3/uL (1.5-8.5); NEUTROPHILS % 71.8 % (36.0-66.0); PLATELET COUNT, AUTOMATED 185 10^3/uL (150-450); RED BLOOD COUNT 2.31 10^6/uL (4.30-6.10); WHITE BLOOD COUNT 6.4 10^3/uL (4.0-10.0)
[2024-03-05] MEDS ORDERED: SODIUM CHLORIDE 0.9% 1000 ML IV PRN (12:00)
[2024-03-05] MEDS ORDERED: LIDOCAINE 1% SDV 5ML VIAL SC PRN (12:00)
[2024-03-05] MEDS ORDERED: HEPARIN 1,000UNITS/ML 10ML VIAL (FOR RADIOLOGY & DIALYSIS ONLY) IV PRN (12:00)
[2024-03-05 12:02] LABS: ALBUMIN 2.4 G/DL (3.2-5.2); BILIRUBIN,DIRECT 0.1 MG/DL (<0.4); BILIRUBIN,TOTAL 0.3 MG/DL (0.3-1.2); CALCIUM LEVEL 8.6 MG/DL (8.5-10.1); CREATININE FOR GFR 3.92 MG/DL (0.70-1.30); GLOMERULAR FILTRATION RATE 17.1 (>56); POTASSIUM SERUM 5.3 MMOL/L (3.5-5.1); TOTAL PROTEIN 6.6 G/DL (5.7-8.2)
[2024-03-05 12:04] LABS: THYROID STIMULATING HORMONE 3.822 uIU/ML (0.55-4.78)
[2024-03-05] MEDS ORDERED: MAGN400T2 PO (12:43)
[2024-03-05] MEDS ORDERED: ANOR1AER INH (12:43)
[2024-03-05] MEDS ORDERED: ATOR80TA59 PO (12:43)
[2024-03-05] MEDS ORDERED: TORS20TA2 PO (12:43)
[2024-03-05] MEDS ORDERED: METO1TAB33 PO (12:43)
[2024-03-05] MEDS ORDERED: AMLO1TAB25 PO (12:43)
[2024-03-05] MEDS ORDERED: GLUC1KIT INJ (12:43)
[2024-03-05] MEDS ORDERED: FAMO1TAB11 PO (12:43)
[2024-03-05] MEDS ORDERED: POTA-151 PO (12:43)
[2024-03-05] MEDS ORDERED: BISA10SU27 PR (12:43)
[2024-03-05] MEDS ORDERED: FERR325T18 PO (12:43)
[2024-03-05] MEDS ORDERED: PANT-23 PO (12:43)
[2024-03-05] MEDS ORDERED: FLEEENE12 PR (12:43)
[2024-03-05] MEDS ORDERED: ACET1TAB55 PO (12:43)
[2024-03-05] MEDS ORDERED: EZET10TA21 PO (12:43)
[2024-03-05] MEDS ORDERED: CENT1TAB PO (12:43)
[2024-03-05] MEDS ORDERED: DULO1CAP4 PO (12:43)
[2024-03-05] MEDS ORDERED: GABA-284 PO (12:43)
[2024-03-05] MEDS ORDERED: MILKSUS3 PO (12:43)
[2024-03-05] MEDS ORDERED: IPRA0.00 INH (12:43)
[2024-03-05] MEDS ORDERED: BASA100I SC (12:43)
[2024-03-05] MEDS ORDERED: INSU100I24 SC (12:43)
[2024-03-05] MEDS ORDERED: HOME MED LIST COMPLETE! XX SCH (12:50)
[2024-03-05] MEDS ORDERED: MAALOX 30 ML SUSP *UDC PO PRN (14:00)
[2024-03-05] MEDS ORDERED: MOM 30ML SUSPENSION UDC PO PRN (14:00)
[2024-03-05 15:00] VITALS: BP 136/72; TEMP 97.5; O2SAT 90
[2024-03-05] MEDS ORDERED: GLUCOSE 4 GM CHEW PO PRN (15:00)
[2024-03-05] MEDS ORDERED: GLUCAGON INJ 1MG VIAL SC PRN (15:00)
[2024-03-05] MEDS ORDERED: DEXTROSE 50% 50ML SYRINGE IV PRN (15:00)
[2024-03-05] MEDS ORDERED: ACETAMINOPHEN 325 MG TAB PO PRN (15:00)
[2024-03-05] MEDS ORDERED: BISACODYL 10MG SUPP PR PRN (15:00)
[2024-03-05] MEDS ORDERED: IPRATROPIUM 0.5MG/ALBUTEROL 2.5MG INH SOL UD 3ML (DUONEB) NEB PRN (15:00)
[2024-03-05] MEDS: INSULIN LISPRO (NovoLOG) PER UNIT SC SCH ×2 (17:30→21:00)
[2024-03-05] MEDS: HEPARIN 1,000UNITS/ML 10ML VIAL (FOR RADIOLOGY & DIALYSIS ONLY) XX SCH (19:19)
[2024-03-05] MEDS: BUDESONIDE 0.5 MG/2 ML INHALATION SUSPENSION NEB SCH (20:00)
[2024-03-05] MEDS: IPRATROPIUM 0.5MG/ALBUTEROL 2.5MG INH SOL UD 3ML (DUONEB) NEB SCH (20:00)
[2024-03-05 20:30] VITALS: BP 140/73; TEMP 97.7; O2SAT 91
[2024-03-05] MEDS: PANTOPRAZOLE 40MG TAB (PROTONIX) PO SCH (20:47)
[2024-03-05] MEDS: EZETIMIBE 10MG TABLET (ZETIA) PO SCH (20:47)
[2024-03-05] MEDS: ATORVASTATIN 20 MG TAB PO SCH (20:47)
[2024-03-05] MEDS: HEPARIN SOD (PORCINE) 5000UNITS/ML 1ML VIAL/SYRINGE SQ SCH (20:48)
[2024-03-05] MEDS: LEVEMIR (INSULIN DETEMIR) 1 UNITS/0.01ML SC SCH (22:33)
[2024-03-06 04:00] VITALS: BP 141/73; TEMP 97.9; O2SAT 93
[2024-03-06] MEDS ORDERED: HEPARIN 1,000UNITS/ML 10ML VIAL (FOR RADIOLOGY & DIALYSIS ONLY) IV PRN (06:00)
[2024-03-06] MEDS ORDERED: SODIUM CHLORIDE 0.9% 1000 ML IV PRN (06:00)
[2024-03-06 06:41] LABS: HEMATOCRIT 22.6 % (42.0-52.0); MEAN CORPUSCULAR HEMOGLOBIN 31.4 pg (27.0-33.0); MEAN CORPUSCULAR VOLUME 101.3 fl (80.0-96.0); PLATELET COUNT, AUTOMATED 140 10^3/uL (150-450); RED BLOOD COUNT 2.23 10^6/uL (4.30-6.10); WHITE BLOOD COUNT 5.1 10^3/uL (4.0-10.0)
[2024-03-06 07:10] LABS: ALBUMIN 2.1 G/DL (3.2-5.2); BILIRUBIN,TOTAL 0.2 MG/DL (0.3-1.2); CALCIUM LEVEL 8.1 MG/DL (8.5-10.1); CREATININE FOR GFR 2.97 MG/DL (0.70-1.30); GLOMERULAR FILTRATION RATE 23.5 (>56); POTASSIUM SERUM 4.7 MMOL/L (3.5-5.1); TOTAL PROTEIN 6.2 G/DL (5.7-8.2)
[2024-03-06] MEDS: TIOTROPIUM INHALER/CAPSULE (SPIRIVA) INH SCH (07:30)
[2024-03-06 08:15] VITALS: BP 127/58; TEMP 98.2; O2SAT 91
[2024-03-06] MEDS: DULoxetine 20MG CAP (CYMBALTA) PO SCH (08:22)
[2024-03-06] MEDS: MAGNESIUM OXIDE 400MG TAB (MAG-OX) PO SCH (08:23)
[2024-03-06] MEDS: GABAPENTIN 400MG CAP PO SCH (08:23)
[2024-03-06] MEDS: TORSEMIDE 20 MG TAB PO SCH (08:23)
[2024-03-06] MEDS: ESCITALOPRAM OXALATE 10 MG TAB (LEXAPRO) PO SCH (08:24)
[2024-03-06] MEDS: METOPROLOL SUCC (TopROL XL) 100MG *XL* TAB PO SCH (08:24)
[2024-03-06] MEDS: FERROUS SULFATE 325MG TAB PO SCH (08:24)
[2024-03-06] MEDS: MULTIVITAMINS/MINERALS THERAP 1 TAB PO SCH (08:25)
[2024-03-06] MEDS: FAMOTIDINE 20 MG TAB PO SCH (08:25)
[2024-03-06] MEDS: ASPIRIN 81MG ENTERIC TABLET PO SCH (08:32)
[2024-03-06 10:35] LABS: PERCENT SATURATION 16.3 % (19.7-50.0)
[2024-03-06 12:00] VITALS: BP 140/70; TEMP 97.8; O2SAT 93
[2024-03-06] MEDS: HEPARIN 1,000UNITS/ML 10ML VIAL (FOR RADIOLOGY & DIALYSIS ONLY) XX SCH (14:15)
[2024-03-06] MEDS: DARBEPOETIN 100MCG/0.5ML *DIALYSIS* SYRINGE IV SCH (14:15)
[2024-03-06] MEDS: IRON SUCROSE 100MG 5ML VIAL IV SCH (15:12)
[2024-03-06 20:02] VITALS: BP 126/58; TEMP 98.1; O2SAT 93
[2024-03-06] MEDS: ACETAMINOPHEN 325 MG TAB PO PRN (20:35)
[2024-03-07 04:00] VITALS: BP 126/60; TEMP 97.7; O2SAT 93
[2024-03-07 06:57] LABS: HEMOGLOBIN 7.2 g/dl (13.5-17.5); MEAN CORPUSCULAR HEMOGLOBIN 31.7 pg (27.0-33.0); MEAN CORPUSCULAR HGB CONC 31.3 g/dl (32.0-36.5); MEAN CORPUSCULAR VOLUME 101.3 fl (80.0-96.0); PLATELET COUNT, AUTOMATED 137 10^3/uL (150-450); RED BLOOD COUNT 2.27 10^6/uL (4.30-6.10); WHITE BLOOD COUNT 4.9 10^3/uL (4.0-10.0)
[2024-03-07 07:24] LABS: ALBUMIN 2.3 G/DL (3.2-5.2); CALCIUM LEVEL 8.4 MG/DL (8.5-10.1); CREATININE FOR GFR 3.35 MG/DL (0.70-1.30); GLOMERULAR FILTRATION RATE 20.5 (>56); PHOSPHORUS LEVEL 5.8 MG/DL (2.5-4.9); POTASSIUM SERUM 4.7 MMOL/L (3.5-5.1)
[2024-03-07 08:15] VITALS: BP 124/60; TEMP 97.7; O2SAT 91
[2024-03-07] MEDS: TORSEMIDE 100 MG TAB PO SCH (08:19)
[2024-03-07 20:05] VITALS: BP 121/59; TEMP 97.9; O2SAT 92
[2024-03-08 04:11] VITALS: BP 138/66; TEMP 97.9; O2SAT 91
[2024-03-08] MEDS ORDERED: SODIUM CHLORIDE 0.9% 1000 ML IV PRN (06:00)
[2024-03-08] MEDS ORDERED: HEPARIN 1,000UNITS/ML 10ML VIAL (FOR RADIOLOGY & DIALYSIS ONLY) IV PRN (06:00)
[2024-03-08 07:07] LABS: ALBUMIN 2.3 G/DL (3.2-5.2); CALCIUM LEVEL 8.4 MG/DL (8.5-10.1); CREATININE FOR GFR 3.74 MG/DL (0.70-1.30); PHOSPHORUS LEVEL 6.5 MG/DL (2.5-4.9); POTASSIUM SERUM 5.2 MMOL/L (3.5-5.1)
[2024-03-08 07:51] LABS: BASO % 0.5 % (0.0-1.0); EOS # 0.2 10^3/uL (0.0-0.5); HEMATOCRIT 22.4 % (42.0-52.0); LYMPH # 0.7 10^3/uL (1.5-5.0); LYMPH % 13.5 % (24.0-44.0); MEAN CORPUSCULAR HEMOGLOBIN 31.2 pg (27.0-33.0); MEAN CORPUSCULAR HGB CONC 30.8 g/dl (32.0-36.5); MEAN CORPUSCULAR VOLUME 101.4 fl (80.0-96.0); MONO # 0.6 10^3/uL (0.0-0.8); MONO % 11.6 % (2.0-8.0); NEUTROPHILS # 3.8 10^3/uL (1.5-8.5); NEUTROPHILS % 69.9 % (36.0-66.0); PLATELET COUNT, AUTOMATED 144 10^3/uL (150-450); RED BLOOD COUNT 2.21 10^6/uL (4.30-6.10); WHITE BLOOD COUNT 5.5 10^3/uL (4.0-10.0)
[2024-03-08 07:55] LABS: HEMOGLOBIN 6.9 g/dl (13.5-17.5)
[2024-03-08 08:36] VITALS: BP 114/56; TEMP 97.9; O2SAT 92
[2024-03-08] MEDS: (RENVELA) SEVELAMER **CARBONate** 800 MG TAB PO SCH (08:40)
[2024-03-08 08:55] LABS: HEMATOCRIT 23.4 % (42.0-52.0); HEMOGLOBIN 7.1 g/dl (13.5-17.5); MEAN CORPUSCULAR HEMOGLOBIN 30.7 pg (27.0-33.0); MEAN CORPUSCULAR HGB CONC 30.3 g/dl (32.0-36.5); MEAN CORPUSCULAR VOLUME 101.3 fl (80.0-96.0); PLATELET COUNT, AUTOMATED 142 10^3/uL (150-450); RED BLOOD COUNT 2.31 10^6/uL (4.30-6.10); WHITE BLOOD COUNT 5.7 10^3/uL (4.0-10.0)
[2024-03-08 14:34] VITALS: BP 135/65; TEMP 97.9; O2SAT 92
[2024-03-08] MEDS: HEPARIN 1,000UNITS/ML 10ML VIAL (FOR RADIOLOGY & DIALYSIS ONLY) XX SCH (18:30)
[2024-03-08 21:21] VITALS: BP 136/65; TEMP 97.9; O2SAT 92
[2024-03-09] VITALS (8 sets, daily range): BP systolic 123–147; BP diastolic 56–86; TEMP 97.5–100; O2SAT 88–93
[2024-03-09] MEDS ORDERED: SODIUM CHLORIDE 0.9% 1000 ML IV PRN (06:00)
[2024-03-09] MEDS ORDERED: HEPARIN 1,000UNITS/ML 10ML VIAL (FOR RADIOLOGY & DIALYSIS ONLY) IV PRN (06:00)
[2024-03-09 06:46] LABS: HEMATOCRIT 22.9 % (42.0-52.0); MEAN CORPUSCULAR HGB CONC 30.6 g/dl (32.0-36.5); MEAN CORPUSCULAR VOLUME 101.3 fl (80.0-96.0); PLATELET COUNT, AUTOMATED 126 10^3/uL (150-450); RED BLOOD COUNT 2.26 10^6/uL (4.30-6.10); WHITE BLOOD COUNT 5.3 10^3/uL (4.0-10.0)
[2024-03-09 07:30] LABS: ALBUMIN 2.3 G/DL (3.2-5.2); CALCIUM LEVEL 8.3 MG/DL (8.5-10.1); CREATININE FOR GFR 2.75 MG/DL (0.70-1.30); GLOMERULAR FILTRATION RATE 25.7 (>56); PHOSPHORUS LEVEL 4.6 MG/DL (2.5-4.9); POTASSIUM SERUM 4.3 MMOL/L (3.5-5.1)
[2024-03-09] MEDS: HEPARIN 1,000UNITS/ML 10ML VIAL (FOR RADIOLOGY & DIALYSIS ONLY) XX SCH (09:58)
[2024-03-10] VITALS (7 sets, daily range): BP systolic 106–132; BP diastolic 54–68; TEMP 97.7–99.1; O2SAT 88–99
[2024-03-10] MEDS ORDERED: SODIUM CHLORIDE 0.9% 250ML IV PRN (06:00)
[2024-03-10] MEDS ORDERED: HEPARIN 1,000UNITS/ML 10ML VIAL (FOR RADIOLOGY & DIALYSIS ONLY) IV PRN (06:00)
[2024-03-10 06:29] LABS: HEMATOCRIT 24.7 % (42.0-52.0); HEMOGLOBIN 7.8 g/dl (13.5-17.5); MEAN CORPUSCULAR HEMOGLOBIN 31.3 pg (27.0-33.0); MEAN CORPUSCULAR HGB CONC 31.6 g/dl (32.0-36.5); MEAN CORPUSCULAR VOLUME 99.2 fl (80.0-96.0); PLATELET COUNT, AUTOMATED 118 10^3/uL (150-450); RED BLOOD COUNT 2.49 10^6/uL (4.30-6.10)
[2024-03-10 06:40] LABS: ALBUMIN 2.4 G/DL (3.2-5.2); CALCIUM LEVEL 8.5 MG/DL (8.5-10.1); CREATININE FOR GFR 3.44 MG/DL (0.70-1.30); GLOMERULAR FILTRATION RATE 19.8 (>56); PHOSPHORUS LEVEL 4.6 MG/DL (2.5-4.9); POTASSIUM SERUM 4.6 MMOL/L (3.5-5.1)
[2024-03-10 06:42] LABS: FERRITIN 444.9 NG/ML (10.5-307.3)
[2024-03-10] MEDS: HEPARIN 1,000UNITS/ML 10ML VIAL (FOR RADIOLOGY & DIALYSIS ONLY) XX SCH (14:38)
[2024-03-10] MEDS: diphenhydrAMINE 25MG CAP PO PRN (17:50)
[2024-03-11 04:44] VITALS: BP 139/68; TEMP 97.7; O2SAT 89
[2024-03-11] MEDS ORDERED: HEPARIN 1,000UNITS/ML 10ML VIAL (FOR RADIOLOGY & DIALYSIS ONLY) IV PRN (06:00)
[2024-03-11] MEDS ORDERED: SODIUM CHLORIDE 0.9% 1000 ML IV PRN (06:00)
[2024-03-11 07:24] LABS: HEMATOCRIT 27.5 % (42.0-52.0); HEMOGLOBIN 8.7 g/dl (13.5-17.5); MEAN CORPUSCULAR HGB CONC 31.6 g/dl (32.0-36.5); MEAN CORPUSCULAR VOLUME 97.9 fl (80.0-96.0); PLATELET COUNT, AUTOMATED 101 10^3/uL (150-450); RED BLOOD COUNT 2.81 10^6/uL (4.30-6.10); WHITE BLOOD COUNT 4.2 10^3/uL (4.0-10.0)
[2024-03-11 07:51] LABS: ALBUMIN 2.2 G/DL (3.2-5.2); CALCIUM LEVEL 8.4 MG/DL (8.5-10.1); CREATININE FOR GFR 2.76 MG/DL (0.70-1.30); GLOMERULAR FILTRATION RATE 25.6 (>56); PHOSPHORUS LEVEL 4.3 MG/DL (2.5-4.9); POTASSIUM SERUM 4.1 MMOL/L (3.5-5.1)
[2024-03-11] MEDS: HEPARIN 1,000UNITS/ML 10ML VIAL (FOR RADIOLOGY & DIALYSIS ONLY) XX SCH (10:50)
[2024-03-11 12:28] LABS: FOLATE 18.04 NG/ML (>5.4)
[2024-03-11 12:31] LABS: VITAMIN B12 LEVEL 825 PG/ML (211-911)
[2024-03-11 12:40] LABS: HEPATITIS B SURFACE ANTIGEN NEGATIVE (NEGATIVE)
[2024-03-11 12:53] LABS: HIV 1&2 SCREEN NEGATIVE (NEGATIVE)
[2024-03-11 13:00] VITALS: BP 126/63; TEMP 97.9; O2SAT 100
[2024-03-11 13:02] LABS: HEPATITIS B CORE ANTIBODY IGM NEGATIVE (NEGATIVE); HEPATITIS C VIRUS ABY INDEX 0.04 INDEX (<0.8)
[2024-03-11 20:00] VITALS: BP 131/64; TEMP 98.1; O2SAT 95
[2024-03-12 04:00] VITALS: BP 130/63; TEMP 98.8; O2SAT 97
[2024-03-12] MEDS ORDERED: HEPARIN 1,000UNITS/ML 10ML VIAL (FOR RADIOLOGY & DIALYSIS ONLY) IV PRN (06:00)
[2024-03-12] MEDS ORDERED: SODIUM CHLORIDE 0.9% 1000 ML IV PRN (06:00)
[2024-03-12 06:41] LABS: HEMATOCRIT 25.5 % (42.0-52.0); MEAN CORPUSCULAR HGB CONC 31.4 g/dl (32.0-36.5); MEAN CORPUSCULAR VOLUME 98.8 fl (80.0-96.0); PLATELET COUNT, AUTOMATED 106 10^3/uL (150-450); RED BLOOD COUNT 2.58 10^6/uL (4.30-6.10); WHITE BLOOD COUNT 4.9 10^3/uL (4.0-10.0)
[2024-03-12 07:07] LABS: ALBUMIN 2.1 G/DL (3.2-5.2); CREATININE FOR GFR 2.56 MG/DL (0.70-1.30); GLOMERULAR FILTRATION RATE 27.9 (>56); PHOSPHORUS LEVEL 4.2 MG/DL (2.5-4.9); POTASSIUM SERUM 4.2 MMOL/L (3.5-5.1)
[2024-03-12] MEDS: HEPARIN 1,000UNITS/ML 10ML VIAL (FOR RADIOLOGY & DIALYSIS ONLY) XX SCH (10:54)
[2024-03-12 12:00] VITALS: BP 131/63; TEMP 97.6; O2SAT 97
[2024-03-12] MEDS ORDERED: PILL CUTTER 1 EACH XX ONE (12:27)
[2024-03-12 20:15] VITALS: BP 127/63; TEMP 97.9; O2SAT 99
[2024-03-13 04:00] VITALS: BP 126/63; TEMP 97.9; O2SAT 99
[2024-03-13] MEDS ORDERED: SODIUM CHLORIDE 0.9% 1000 ML IV PRN (06:00)
[2024-03-13] MEDS ORDERED: HEPARIN 1,000UNITS/ML 10ML VIAL (FOR RADIOLOGY & DIALYSIS ONLY) IV PRN (06:00)
[2024-03-13] MEDS ORDERED: LIDOCAINE 1% SDV 5ML VIAL SC PRN (06:00)
[2024-03-13 06:32] LABS: BASO % 0.2 % (0.0-1.0); EOS # 0.2 10^3/uL (0.0-0.5); EOS % 4.4 % (0.0-3.0); HEMATOCRIT 26.4 % (42.0-52.0); HEMOGLOBIN 8.2 g/dl (13.5-17.5); LYMPH # 0.9 10^3/uL (1.5-5.0); LYMPH % 17.8 % (24.0-44.0); MEAN CORPUSCULAR HEMOGLOBIN 31.2 pg (27.0-33.0); MEAN CORPUSCULAR HGB CONC 31.1 g/dl (32.0-36.5); MEAN CORPUSCULAR VOLUME 100.4 fl (80.0-96.0); MONO # 0.7 10^3/uL (0.0-0.8); MONO % 13.3 % (2.0-8.0); NEUTROPHILS # 3.4 10^3/uL (1.5-8.5); NEUTROPHILS % 63.9 % (36.0-66.0); PLATELET COUNT, AUTOMATED 108 10^3/uL (150-450); RED BLOOD COUNT 2.63 10^6/uL (4.30-6.10); WHITE BLOOD COUNT 5.3 10^3/uL (4.0-10.0)
[2024-03-13 06:56] LABS: CALCIUM LEVEL 8.4 MG/DL (8.5-10.1); CREATININE FOR GFR 3.31 MG/DL (0.70-1.30); GLOMERULAR FILTRATION RATE 20.8 (>56); POTASSIUM SERUM 4.3 MMOL/L (3.5-5.1)
[2024-03-13 12:00] VITALS: BP 147/71; TEMP 98.1; O2SAT 95
[2024-03-13] MEDS: HEPARIN 1,000UNITS/ML 10ML VIAL (FOR RADIOLOGY & DIALYSIS ONLY) XX SCH (13:13)
[2024-03-13 19:53] VITALS: BP 145/71; TEMP 97.9; O2SAT 99
[2024-03-14 04:00] VITALS: BP 138/69; TEMP 97.9; O2SAT 99
[2024-03-14 06:20] LABS: BASO % 0.6 % (0.0-1.0); EOS # 0.3 10^3/uL (0.0-0.5); EOS % 6.7 % (0.0-3.0); HEMOGLOBIN 8.6 g/dl (13.5-17.5); LYMPH # 0.9 10^3/uL (1.5-5.0); LYMPH % 19.2 % (24.0-44.0); MEAN CORPUSCULAR HEMOGLOBIN 30.9 pg (27.0-33.0); MEAN CORPUSCULAR HGB CONC 30.7 g/dl (32.0-36.5); MEAN CORPUSCULAR VOLUME 100.7 fl (80.0-96.0); MONO # 0.5 10^3/uL (0.0-0.8); MONO % 10.2 % (2.0-8.0); NEUTROPHILS % 62.3 % (36.0-66.0); PLATELET COUNT, AUTOMATED 108 10^3/uL (150-450); RED BLOOD COUNT 2.78 10^6/uL (4.30-6.10); WHITE BLOOD COUNT 4.8 10^3/uL (4.0-10.0)
[2024-03-14 06:48] LABS: CALCIUM LEVEL 8.1 MG/DL (8.5-10.1); CREATININE FOR GFR 2.61 MG/DL (0.70-1.30); GLOMERULAR FILTRATION RATE 27.3 (>56); POTASSIUM SERUM 4.1 MMOL/L (3.5-5.1)
[2024-03-14] MEDS: BACITRACIN OINTMENT 30GM TUBE TOP SCH (08:40)
[2024-03-14 12:00] VITALS: BP 121/60; TEMP 98.1; O2SAT 98
[2024-03-14] MEDS ORDERED: SODIUM CHLORIDE NASAL 0.65% SPRAY BTL (OCEAN) PRN (14:20)
[2024-03-14] MEDS: SODIUM CHLORIDE NASAL 0.65% SPRAY BTL (OCEAN) SCH (16:06)
[2024-03-14 20:27] VITALS: BP 121/60; TEMP 97.7; O2SAT 99
[2024-03-15 04:00] VITALS: BP 132/62; TEMP 97.9; O2SAT 99
[2024-03-15] MEDS ORDERED: HEPARIN 1,000UNITS/ML 10ML VIAL (FOR RADIOLOGY & DIALYSIS ONLY) IV PRN (06:00)
[2024-03-15] MEDS ORDERED: SODIUM CHLORIDE 0.9% 250ML IV PRN (06:00)
[2024-03-15] MEDS ORDERED: LIDOCAINE 1% SDV 5ML VIAL SC PRN (06:00)
[2024-03-15 07:50] LABS: BASO % 0.5 % (0.0-1.0); EOS # 0.3 10^3/uL (0.0-0.5); EOS % 5.4 % (0.0-3.0); HEMATOCRIT 29.5 % (42.0-52.0); LYMPH # 1.1 10^3/uL (1.5-5.0); LYMPH % 19.3 % (24.0-44.0); MEAN CORPUSCULAR HEMOGLOBIN 30.7 pg (27.0-33.0); MEAN CORPUSCULAR HGB CONC 30.5 g/dl (32.0-36.5); MEAN CORPUSCULAR VOLUME 100.7 fl (80.0-96.0); MONO # 0.6 10^3/uL (0.0-0.8); MONO % 10.2 % (2.0-8.0); NEUTROPHILS # 3.8 10^3/uL (1.5-8.5); NEUTROPHILS % 63.6 % (36.0-66.0); PLATELET COUNT, AUTOMATED 122 10^3/uL (150-450); RED BLOOD COUNT 2.93 10^6/uL (4.30-6.10); WHITE BLOOD COUNT 5.9 10^3/uL (4.0-10.0)
[2024-03-15 08:15] LABS: CALCIUM LEVEL 8.5 MG/DL (8.5-10.1); CREATININE FOR GFR 3.62 MG/DL (0.70-1.30); GLOMERULAR FILTRATION RATE 18.7 (>56); POTASSIUM SERUM 4.6 MMOL/L (3.5-5.1)
[2024-03-15] MEDS: HEPARIN 1,000UNITS/ML 10ML VIAL (FOR RADIOLOGY & DIALYSIS ONLY) XX SCH (11:06)
[2024-03-15 12:30] VITALS: BP 129/61; TEMP 97.9; O2SAT 96
[2024-03-15 20:03] VITALS: BP 129/61; TEMP 97.7; O2SAT 98
[2024-03-16 00:16] LABS: HEP INDUCED PLT AB PATIENT OD 0.175 OD UNITS (<=0.300); HEPARIN INDUCED PLATELET ABY Negative (Negative)
[2024-03-16 04:33] VITALS: BP 130/61; TEMP 97.7; O2SAT 98
[2024-03-16] MEDS ORDERED: LIDOCAINE 1% SDV 5ML VIAL SC PRN (06:00)
[2024-03-16] MEDS ORDERED: SODIUM CHLORIDE 0.9% 1000 ML IV PRN (06:00)
[2024-03-16] MEDS ORDERED: HEPARIN 1,000UNITS/ML 10ML VIAL (FOR RADIOLOGY & DIALYSIS ONLY) IV PRN (06:00)
[2024-03-16 07:16] LABS: BASO % 0.3 % (0.0-1.0); EOS # 0.3 10^3/uL (0.0-0.5); EOS % 4.6 % (0.0-3.0); HEMATOCRIT 27.7 % (42.0-52.0); HEMOGLOBIN 8.4 g/dl (13.5-17.5); LYMPH # 1.1 10^3/uL (1.5-5.0); LYMPH % 16.7 % (24.0-44.0); MEAN CORPUSCULAR HGB CONC 30.3 g/dl (32.0-36.5); MEAN CORPUSCULAR VOLUME 102.2 fl (80.0-96.0); MONO # 0.5 10^3/uL (0.0-0.8); MONO % 7.8 % (2.0-8.0); NEUTROPHILS # 4.5 10^3/uL (1.5-8.5); NEUTROPHILS % 69.1 % (36.0-66.0); PLATELET COUNT, AUTOMATED 132 10^3/uL (150-450); RED BLOOD COUNT 2.71 10^6/uL (4.30-6.10); WHITE BLOOD COUNT 6.5 10^3/uL (4.0-10.0)
[2024-03-16 07:47] LABS: CALCIUM LEVEL 7.9 MG/DL (8.5-10.1); CREATININE FOR GFR 2.95 MG/DL (0.70-1.30); GLOMERULAR FILTRATION RATE 23.7 (>56); POTASSIUM SERUM 4.1 MMOL/L (3.5-5.1)
[2024-03-16] MEDS: HEPARIN 1,000UNITS/ML 10ML VIAL (FOR RADIOLOGY & DIALYSIS ONLY) XX SCH (09:13)
[2024-03-16] MEDS ORDERED: TORS100T PO (09:31)
[2024-03-16 12:21] VITALS: BP 139/67; TEMP 98.6; O2SAT 98
[2024-03-16 12:25] VITALS: BP 139/67
[2024-03-16 17:19] LABS: UNFRACTIONATED HEPARIN HI DOSE 3 % Release; UNFRACTIONATED HEPARIN INTERP Negative (Negative); UNFRACTIONATED HEPARIN LOW 1 % Release; UNFRACTIONATED HEPARIN LOW DOS 0 % Release
== END 2024-03-16 12:55 | DRG 640 ==
LOC: M ED 10:20 → EDBD 10:20 → M ED INP 13:39 → M MS5PR 15:00
PROVIDERS: ADMIT Student in an Organized Health Care Education/Training Program; ATTEND Internal Medicine
PROC: 5A1D70Z Performance of Urinary Filtration, Intermittent, Less than 6 Hours Per Day (ICD-10-PCS; 2024-03-05)
PROC: B246ZZZ Ultrasonography of Right and Left Heart (ICD-10-PCS; 2024-03-08)
PROC: 30233N1 Transfusion of Nonautologous Red Blood Cells into Peripheral Vein, Percutaneous Approach (ICD-10-PCS; principal; 2024-03-09)
DX: E87.70 Fluid overload, unspecified (principal); N18.6 End stage renal disease; I13.2 Hypertensive heart and chronic kidney disease with heart failure and with stage 5 chronic kidney disease, or end stage renal disease; N17.9 Acute kidney failure, unspecified; I50.32 Chronic diastolic (congestive) heart failure; J44.1 Chronic obstructive pulmonary disease with (acute) exacerbation; E11.22 Type 2 diabetes mellitus with diabetic chronic kidney disease; E11.42 Type 2 diabetes mellitus with diabetic polyneuropathy; K76.0 Fatty (change of) liver, not elsewhere classified; I25.10 Atherosclerotic heart disease of native coronary artery without angina pectoris; E87.5 Hyperkalemia; D63.1 Anemia in chronic kidney disease; K21.9 Gastro-esophageal reflux disease without esophagitis; F32.A Depression, unspecified; Z95.5 Presence of coronary angioplasty implant and graft; Z79.82 Long term (current) use of aspirin; Z79.4 Long term (current) use of insulin; Z88.8 Allergy status to other drugs, medicaments and biological substances; Z99.2 Dependence on renal dialysis; Z87.891 Personal history of nicotine dependence; Z86.73 Personal history of transient ischemic attack (TIA), and cerebral infarction without residual deficits; Z79.899 Other long term (current) drug therapy; E83.39 Other disorders of phosphorus metabolism; E78.5 Hyperlipidemia, unspecified; K74.60 Unspecified cirrhosis of liver; D50.9 Iron deficiency anemia, unspecified; R04.0 Epistaxis; D69.6 Thrombocytopenia, unspecified

== ENCOUNTER → 2024-03-08 | Outpatient (REF) ==
[~2024-03-08] MED LIST changes: +ACET1TAB55 PO; +AMLO1TAB25 PO; +ANOR1AER INH; +BASA100I SC; +BISA10SU27 PR; +CENT1TAB PO; +DULO1CAP4 PO; +EZET10TA21 PO; +FAMO1TAB11 PO; +FERR325T18 PO; +FLEEENE12 PR; +GLUC1KIT INJ; +INSU100I24 SC; +IPRA0.00 INH; +MAGN400T2 PO; +METO1TAB33 PO; +MILKSUS3 PO; +PANT-23 PO; +POTA-151 PO; +TORS20TA2 PO
== END ==
PROVIDERS: ATTEND Physician Assistant
DX: D64.9 Anemia, unspecified (principal); Z53.8 Procedure and treatment not carried out for other reasons

== ENCOUNTER → 2024-03-15 | Outpatient (REF) ==
[~2024-03-15] MED LIST changes: +TORS100T PO
== END ==
PROVIDERS: ATTEND Physician Assistant
DX: D64.9 Anemia, unspecified (principal); Z53.9 Procedure and treatment not carried out, unspecified reason

== ENCOUNTER → 2024-03-22 | Outpatient (REF) ==
[2024-03-22 10:35] LABS: HEMATOCRIT 34.3 % (42.0-52.0); HEMOGLOBIN 10.4 g/dl (13.5-17.5); MEAN CORPUSCULAR HEMOGLOBIN 30.7 pg (27.0-33.0); MEAN CORPUSCULAR HGB CONC 30.3 g/dl (32.0-36.5); MEAN CORPUSCULAR VOLUME 101.2 fl (80.0-96.0); PLATELET COUNT, AUTOMATED 166 10^3/uL (150-450); RED BLOOD COUNT 3.39 10^6/uL (4.30-6.10)
[2024-03-22 10:58] LABS: CALCIUM LEVEL 8.7 MG/DL (8.5-10.1); CREATININE FOR GFR 3.53 MG/DL (0.70-1.30); GLOMERULAR FILTRATION RATE 19.2 (>56); POTASSIUM SERUM 4.1 MMOL/L (3.5-5.1)
== END ==
PROVIDERS: ATTEND Physician Assistant
DX: D64.9 Anemia, unspecified (principal)

== ENCOUNTER → 2024-03-29 | Outpatient (REF) | PROVIDERS: ATTEND Physician Assistant | DX: D64.9 Anemia, unspecified (principal); Z53.9 Procedure and treatment not carried out, unspecified reason ==

== ENCOUNTER → 2024-04-05 | Outpatient (REF) ==
[2024-04-05 15:08] LABS: HEMATOCRIT 32.8 % (42.0-52.0); HEMOGLOBIN 10.4 g/dl (13.5-17.5); MEAN CORPUSCULAR HEMOGLOBIN 31.5 pg (27.0-33.0); MEAN CORPUSCULAR HGB CONC 31.7 g/dl (32.0-36.5); MEAN CORPUSCULAR VOLUME 99.4 fl (80.0-96.0); PLATELET COUNT, AUTOMATED 160 10^3/uL (150-450); WHITE BLOOD COUNT 6.1 10^3/uL (4.0-10.0)
[2024-04-05 15:36] LABS: CALCIUM LEVEL 8.7 MG/DL (8.5-10.1); CREATININE FOR GFR 3.14 MG/DL (0.70-1.30); POTASSIUM SERUM 3.7 MMOL/L (3.5-5.1)
== END ==
PROVIDERS: ATTEND Physician Assistant
DX: D64.9 Anemia, unspecified (principal)

== ENCOUNTER → 2024-04-12 | Outpatient (REF) | PROVIDERS: ATTEND Physician Assistant | DX: D64.9 Anemia, unspecified (principal); Z53.9 Procedure and treatment not carried out, unspecified reason ==

== ENCOUNTER → 2024-04-16 | Outpatient (REF) ==
[2024-04-16 08:35] LABS: HEMATOCRIT 30.8 % (42.0-52.0); MEAN CORPUSCULAR HEMOGLOBIN 32.1 pg (27.0-33.0); MEAN CORPUSCULAR HGB CONC 32.5 g/dl (32.0-36.5); MEAN CORPUSCULAR VOLUME 98.7 fl (80.0-96.0); PLATELET COUNT, AUTOMATED 159 10^3/uL (150-450); RED BLOOD COUNT 3.12 10^6/uL (4.30-6.10); WHITE BLOOD COUNT 6.5 10^3/uL (4.0-10.0)
[2024-04-16 08:59] LABS: CALCIUM LEVEL 8.2 MG/DL (8.5-10.1); CREATININE FOR GFR 3.29 MG/DL (0.70-1.30); GLOMERULAR FILTRATION RATE 20.8 (>56); POTASSIUM SERUM 3.9 MMOL/L (3.5-5.1)
== END ==
PROVIDERS: ATTEND Physician Assistant
DX: N18.9 Chronic kidney disease, unspecified (principal)

== ENCOUNTER → 2024-04-19 | Outpatient (REF) ==
[2024-04-19 15:19] LABS: BASO % 0.4 % (0.0-1.0); EOS # 0.4 10^3/uL (0.0-0.5); EOS % 5.5 % (0.0-3.0); HEMATOCRIT 30.1 % (42.0-52.0); HEMOGLOBIN 9.6 g/dl (13.5-17.5); LYMPH # 1.1 10^3/uL (1.5-5.0); LYMPH % 15.2 % (24.0-44.0); MEAN CORPUSCULAR HGB CONC 31.9 g/dl (32.0-36.5); MEAN CORPUSCULAR VOLUME 100.3 fl (80.0-96.0); MONO # 0.6 10^3/uL (0.0-0.8); MONO % 7.8 % (2.0-8.0); NEUTROPHILS # 5.2 10^3/uL (1.5-8.5); NEUTROPHILS % 70.7 % (36.0-66.0); PLATELET COUNT, AUTOMATED 150 10^3/uL (150-450); WHITE BLOOD COUNT 7.3 10^3/uL (4.0-10.0)
[2024-04-19 15:41] LABS: CALCIUM LEVEL 7.7 MG/DL (8.5-10.1); CREATININE FOR GFR 3.75 MG/DL (0.70-1.30); GLOMERULAR FILTRATION RATE 17.9 (>56); POTASSIUM SERUM 4.1 MMOL/L (3.5-5.1)
== END ==
PROVIDERS: ATTEND Physician Assistant
DX: R09.02 Hypoxemia (principal)

== ENCOUNTER → 2024-04-19 | Outpatient (REF) | PROVIDERS: ATTEND Physician Assistant | DX: R09.02 Hypoxemia (principal); J90 Pleural effusion, not elsewhere classified; J98.4 Other disorders of lung; Z95.818 Presence of other cardiac implants and grafts; Z95.828 Presence of other vascular implants and grafts; Z98.890 Other specified postprocedural states ==

== ENCOUNTER → 2024-04-29 | Outpatient (REF) | PROVIDERS: ATTEND Physician Assistant | DX: R53.83 Other fatigue (principal) ==

== ENCOUNTER → 2024-04-30 | Outpatient (REF) ==
[2024-04-30 07:34] LABS: HEMATOCRIT 31.1 % (42.0-52.0); HEMOGLOBIN 10.1 g/dl (13.5-17.5); MEAN CORPUSCULAR HEMOGLOBIN 31.8 pg (27.0-33.0); MEAN CORPUSCULAR HGB CONC 32.5 g/dl (32.0-36.5); MEAN CORPUSCULAR VOLUME 97.8 fl (80.0-96.0); PLATELET COUNT, AUTOMATED 111 10^3/uL (150-450); RED BLOOD COUNT 3.18 10^6/uL (4.30-6.10); WHITE BLOOD COUNT 5.6 10^3/uL (4.0-10.0)
[2024-04-30 07:55] LABS: CALCIUM LEVEL 8.4 MG/DL (8.5-10.1); CREATININE FOR GFR 3.56 MG/DL (0.70-1.30); POTASSIUM SERUM 4.1 MMOL/L (3.5-5.1)
[2024-04-30 07:57] LABS: THYROID STIMULATING HORMONE 1.63 uIU/ML (0.55-4.78); THYROXINE (T4) 4.4 UG/DL (4.5-10.9)
[2024-04-30 07:58] LABS: FREE T4 0.93 NG/DL (0.89-1.76)
== END ==
PROVIDERS: ATTEND Physician Assistant
DX: R53.83 Other fatigue (principal)

== ENCOUNTER → 2024-05-03 | Outpatient (REF) ==
[2024-05-03 10:48] LABS: HEMOGLOBIN 10.5 g/dl (13.5-17.5); MEAN CORPUSCULAR HEMOGLOBIN 31.4 pg (27.0-33.0); MEAN CORPUSCULAR HGB CONC 31.8 g/dl (32.0-36.5); MEAN CORPUSCULAR VOLUME 98.8 fl (80.0-96.0); PLATELET COUNT, AUTOMATED 148 10^3/uL (150-450); RED BLOOD COUNT 3.34 10^6/uL (4.30-6.10); WHITE BLOOD COUNT 8.4 10^3/uL (4.0-10.0)
[2024-05-03 11:29] LABS: BLOOD UREA NITROGEN 92 MG/DL (9-23); CALCIUM LEVEL 8.3 MG/DL (8.5-10.1); CARBON DIOXIDE LEVEL 24 MMOL/L (20-31); CHLORIDE LEVEL 101 MMOL/L (98-107); CREATININE FOR GFR 4.25 MG/DL (0.70-1.30); GLOMERULAR FILTRATION RATE 15.5 (>56); GLUCOSE, FASTING 233 MG/DL (60-100); POTASSIUM SERUM 4.6 MMOL/L (3.5-5.1); SODIUM LEVEL 139 MMOL/L (136-145)
[2024-05-03 11:47] LABS: BASO % 0.4 % (0.0-1.0); EOS # 0.4 10^3/uL (0.0-0.5); EOS % 4.3 % (0.0-3.0); LYMPH # 1.3 10^3/uL (1.5-5.0); MONO # 0.6 10^3/uL (0.0-0.8); MONO % 7.3 % (2.0-8.0); NEUTROPHILS # 6.2 10^3/uL (1.5-8.5); NEUTROPHILS % 72.2 % (36.0-66.0)
[2024-05-03 19:55] LABS: C REACTIVE PROTEIN QUANTITATIV < 0.50 MG/DL (<1.0)
== END ==
PROVIDERS: ATTEND Physician Assistant
DX: R09.02 Hypoxemia (principal); R05.9 Cough, unspecified

== ENCOUNTER → 2024-05-04 | Outpatient (REF) | payer MEDICARE, MEDICAID | PROVIDERS: ATTEND Physician Assistant | DX: J18.9 Pneumonia, unspecified organism (principal); I28.8 Other diseases of pulmonary vessels; I51.7 Cardiomegaly; Z96.9 Presence of functional implant, unspecified ==

== ENCOUNTER → 2024-05-04 | Outpatient (REF) | PROVIDERS: ATTEND Physician Assistant | DX: R05.9 Cough, unspecified (principal) ==

== ENCOUNTER → 2024-05-10 | Outpatient (REF) ==
[2024-05-10 10:10] LABS: HEMATOCRIT 35.7 % (42.0-52.0); HEMOGLOBIN 11.4 g/dl (13.5-17.5); MEAN CORPUSCULAR HEMOGLOBIN 31.8 pg (27.0-33.0); MEAN CORPUSCULAR HGB CONC 31.9 g/dl (32.0-36.5); MEAN CORPUSCULAR VOLUME 99.4 fl (80.0-96.0); PLATELET COUNT, AUTOMATED 134 10^3/uL (150-450); RED BLOOD COUNT 3.59 10^6/uL (4.30-6.10); WHITE BLOOD COUNT 8.1 10^3/uL (4.0-10.0)
[2024-05-10 10:50] LABS: CALCIUM LEVEL 8.3 MG/DL (8.5-10.1); CREATININE FOR GFR 4.52 MG/DL (0.70-1.30); GLOMERULAR FILTRATION RATE 14.4 (>56); POTASSIUM SERUM 4.7 MMOL/L (3.5-5.1)
== END ==
PROVIDERS: ATTEND Physician Assistant
DX: R09.02 Hypoxemia (principal)

== ENCOUNTER → 2024-05-14 | Outpatient (REF) | PROVIDERS: ATTEND Physician Assistant | DX: I10 Essential (primary) hypertension (principal); Z53.9 Procedure and treatment not carried out, unspecified reason ==

== ENCOUNTER → 2024-05-14 | Outpatient (REF) | PROVIDERS: ATTEND Physician Assistant | DX: I10 Essential (primary) hypertension (principal); Z53.9 Procedure and treatment not carried out, unspecified reason ==

== ENCOUNTER → 2024-10-13 | Outpatient (CLI) | payer MEDICARE ==
[~2024-10-13] MED LIST changes: -GLUC1KIT INJ; +GLUC1VIA14 INJ; +HYDR25TA87 PO; +SEVE800T3 PO
== END ==
LOC: M SOG 07:12
PROVIDERS: ATTEND Orthopaedic Surgery
DX: Z48.816 Encounter for surgical aftercare following surgery on the genitourinary system (principal); S72.001D Fracture of unspecified part of neck of right femur, subsequent encounter for closed fracture with routine healing

== ENCOUNTER → 2024-10-18 | Outpatient (CLI) | payer MEDICARE, MEDICAID ==
[~2024-10-18] VITALS: Ht 182.9 cm; Wt 70.3 kg
[~2024-10-18] MED LIST changes: +AMIO200T54 PO; +CEFUROXIME 1 MG/0.1 ML INTRACAMERAL INJ As Ordered ONE; +CIPR0.3S37 OD; +ELIQ2.5T PO; -EZET10TA21 PO; +EZET10TA57 PO; +KETO5DRO32 OD; +LIDOCAINE 1% SDV 5 ML VIAL As Ordered ONE; +LR 1,000 ML IV SCH; +MAGN400T35 PO; +METO1TAB7 PO; +MIDAZOLAM INJ 2 MG/2 ML VIAL As Ordered ONE; +PERC10TA26 PO; +PREDOPD OD; +SYMB80INH INH; +TOPR50TA PO
[2024-10-18 06:40] VITALS: BP 158/72; TEMP 99.2; O2SAT 98
[2024-10-18] MEDS: CYCLOPENTOLATE 1% OPHTH SOLN 2 ML BTL OD SCH (06:47)
[2024-10-18] MEDS: PHENYLEPHRINE 2.5% OPHTH SOL 2ML OD SCH (06:47)
[2024-10-18] MEDS: FLURBIPROFEN 0.03% OPHTH SOLN 2.5 ML OD SCH (06:47)
[2024-10-18] MEDS: TETRACAINE 0.5% OPHTH SOLN 4ML OD SCH (06:47)
== END ==
LOC: M SDC 06:03 → M LAB 06:03 → EDSTATUS 07:30
PROVIDERS: ATTEND Ophthalmology
DX: H25.11 Age-related nuclear cataract, right eye (principal); Z53.09 Procedure and treatment not carried out because of other contraindication

== ENCOUNTER 2024-11-01 05:55 | Day surgery (SDC) | payer MEDICARE, MEDICAID ==
[~2024-11-01] VITALS: Ht 182.9 cm; Wt 75.3 kg
[~2024-11-01 05:55] MED LIST changes: -AMIO200T54 PO; -CEFUROXIME 1 MG/0.1 ML INTRACAMERAL INJ As Ordered ONE; -CIPR0.3S37 OD; -ELIQ2.5T PO; +EZET10TA21 PO; -EZET10TA57 PO; -KETO5DRO32 OD; -LIDOCAINE 1% SDV 5 ML VIAL As Ordered ONE; -LR 1,000 ML IV SCH; -MAGN400T35 PO; -METO1TAB7 PO; -MIDAZOLAM INJ 2 MG/2 ML VIAL As Ordered ONE; -PERC10TA26 PO; -PREDOPD OD; -SYMB80INH INH; -TOPR50TA PO
[2024-11-01] MEDS: PHENYLEPHRINE 2.5% OPHTH SOL 2ML OD SCH (06:43)
[2024-11-01] MEDS: TETRACAINE 0.5% OPHTH SOLN 4ML OD SCH (06:43)
[2024-11-01] MEDS: FLURBIPROFEN 0.03% OPHTH SOLN 2.5 ML OD SCH (06:43)
[2024-11-01] MEDS: CYCLOPENTOLATE 1% OPHTH SOLN 2 ML BTL OD SCH (06:43)
[2024-11-01] MEDS ORDERED: LR 1,000 ML IV SCH (07:00)
[2024-11-01] MEDS ORDERED: MIDAZOLAM INJ 2 MG/2 ML VIAL As Ordered ONE (07:11)
[2024-11-01] MEDS ORDERED: GLUCOSE 4 GM CHEW PO PRN (07:15)
[2024-11-01] MEDS ORDERED: GLUCAGON INJ 1 MG VIAL SC PRN (07:15)
[2024-11-01] MEDS ORDERED: DEXTROSE 50% 50 ML SYRINGE IV PRN (07:15)
[2024-11-01] MEDS: INSULIN LISPRO (NovoLOG) PER UNIT SC PRN (07:21)
[2024-11-01] MEDS: LIDOCAINE 1% SDV 5 ML VIAL As Ordered ONE (07:57)
[2024-11-01] MEDS: CEFUROXIME 1 MG/0.1 ML INTRACAMERAL INJ As Ordered ONE (08:04)
[2024-11-01 08:20] VITALS: BP 159/75; TEMP 97.5; O2SAT 96
== END 2024-11-01 08:34 | disposition home or self-care (01) ==
LOC: M SDC 05:55
PROVIDERS: ATTEND Ophthalmology
DX: H25.11 Age-related nuclear cataract, right eye (principal)

== ENCOUNTER 2024-11-04 02:00 | Inpatient (IN) | payer MEDICARE, MEDICAID ==
[~2024-11-04] VITALS: Ht 182.9 cm; Wt 72.0 kg
[2024-11-04] VITALS (12 sets, daily range): BP systolic 141–178; BP diastolic 64–88; TEMP 98–103.6; O2SAT 94–100
[2024-11-04 07:14] LABS: KETONE, URINE AUTO RFX TRACE mg/dL (NEGATIVE); LEUKOCYTE ESTERASE UR AUTO RFX NEGATIVE (NEGATIVE); NITRITE, URINE AUTO RFX NEGATIVE (NEGATIVE); RBC, URINE AUTO RFX 26 /HPF (0-3); SQUAM EPITHELIAL CELL UR AURFX 2 /HPF (0-6); WBC, URINE AUTO RFX 6 /HPF (0-3)
[2024-11-04 07:20] LABS: PLATELET COUNT, AUTOMATED 212 10^3/uL (150-450)
[2024-11-04 07:31] LABS: INR 1.25
[2024-11-04 07:52] LABS: ALT/SGPT 12 U/L (7.0-40); AST/SGOT 19 U/L (<34); CALCIUM LEVEL 8.0 MG/DL (8.5-10.1); CARBON DIOXIDE LEVEL 19 MMOL/L (20-31); CHLORIDE LEVEL 100 MMOL/L (98-107); CREATININE FOR GFR 5.02 MG/DL (0.70-1.30); GLOMERULAR FILTRATION RATE 12.7 (>56); POTASSIUM SERUM 5.1 MMOL/L (3.5-5.1); SODIUM LEVEL 134 MMOL/L (136-145)
[2024-11-04] MEDS: ACETAMINOPHEN *IV* 1,000 MG in IV 1 EA IV ONE (08:32)
[2024-11-04 08:41] LABS: VANCOMYCIN RANDOM 17.2 UG/ML
[2024-11-04 09:05] LABS: ESTIMATED AVERAGE GLUCOSE 97.0 MG/DL (60-110)
[2024-11-04] MEDS ORDERED: SODIUM CHLORIDE 0.9% 1000 ML IV PRN (09:20)
[2024-11-04] MEDS ORDERED: HEPARIN 1,000 UNITS/ML 10 ML VIAL (FOR RADIOLOGY & DIALYSIS ONLY) IV PRN (09:20)
[2024-11-04 10:23] LABS: HEPATITIS C VIRUS ABY INDEX < 0.02 INDEX (<0.8)
[2024-11-04 10:32] LABS: HEPATITIS B SURFACE ANTIBODY POSITIVE (POSITIVE)
[2024-11-04] MEDS: HEPARIN 1,000 UNITS/ML 10 ML VIAL (FOR RADIOLOGY & DIALYSIS ONLY) XX SCH (10:49)
[2024-11-04] MEDS ORDERED: MAGN400T35 PO (12:11)
[2024-11-04] MEDS ORDERED: HOME MED LIST COMPLETE! XX SCH (12:15)
[2024-11-04 12:17] LABS: ERYTHROCYTE SEDIMENTATION RATE > 130 mm/hr (0-20)
[2024-11-04] MEDS: DARBEPOETIN 100 MCG/0.5 ML *DIALYSIS* SYRINGE IV SCH (12:19)
[2024-11-04] MEDS: ACETAMINOPHEN 325 MG TAB PO PRN (13:28)
[2024-11-04 13:34] LABS: C REACTIVE PROTEIN QUANTITATIV 26.53 MG/DL (<1.0)
[2024-11-04] MEDS: VANCOMYCIN HCL 1,000 MG, VIAL MATE ADAPTER 1 EACH in NS 250 ML IV SCH (15:33)
[2024-11-04] MEDS ORDERED: CIPR0.3S37 OD (16:43)
[2024-11-04] MEDS ORDERED: PREDOPD OD (16:43)
[2024-11-04] MEDS ORDERED: KETO5DRO32 OD (16:43)
[2024-11-04] MEDS ORDERED: ISOVUE-370 76% 100 ML VIAL As Ordered ONE (17:00)
[2024-11-04] MEDS: CIPROFLOXACIN 0.3% OPHTH SOLN 2.5 ML OD SCH (18:07)
[2024-11-04] MEDS: prednisoLONE ACET 1% OPHTH SUSP 5ML OD SCH (18:07)
[2024-11-04] MEDS: KETOROLAC 0.5% OPHTH SOLN OD SCH (18:07)
[2024-11-04] MEDS: CEFEPIME HCL 1 GM in DEXTROSE 5% (D5W) ADV/MINI-BAG 50 ML IV SCH (21:58)
[2024-11-04] MEDS: PANTOPRAZOLE 40MG TAB PO SCH (21:59)
[2024-11-04] MEDS: ATORVASTATIN 20 MG TAB PO SCH (21:59)
[2024-11-05] VITALS (12 sets, daily range): BP systolic 131–200; BP diastolic 60–100; TEMP 98.6–102.4; O2SAT 86–100
[2024-11-05 04:18] LABS: BASO # 0.0 10^3/uL (0.0-0.2); BASO % 0.2 % (0.0-1.0); EOS # 0.0 10^3/uL (0.0-0.5); EOS % 0.2 % (0.0-3.0); LYMPH # 0.3 10^3/uL (1.5-5.0); LYMPH % 2.0 % (24.0-44.0); MONO # 0.8 10^3/uL (0.0-0.8); MONO % 6.2 % (2.0-8.0); NEUTROPHILS # 11.2 10^3/uL (1.5-8.5); NEUTROPHILS % 90.8 % (36.0-66.0); PLATELET COUNT, AUTOMATED 154 10^3/uL (150-450)
[2024-11-05 05:13] LABS: CALCIUM LEVEL 7.9 MG/DL (8.5-10.1); CARBON DIOXIDE LEVEL 20.0 MMOL/L (20-31); CHLORIDE LEVEL 102.0 MMOL/L (98-107); CREATININE FOR GFR 3.28 MG/DL (0.70-1.30); GLOMERULAR FILTRATION RATE 21.2 (>56); MAGNESIUM LEVEL 2.2 MG/DL (1.8-2.4); POTASSIUM SERUM 4.0 MMOL/L (3.5-5.1); SODIUM LEVEL 139.0 MMOL/L (136-145)
[2024-11-05] MEDS ORDERED: HEPARIN 1,000 UNITS/ML 10 ML VIAL (FOR RADIOLOGY & DIALYSIS ONLY) IV PRN (06:00)
[2024-11-05] MEDS ORDERED: SODIUM CHLORIDE 0.9% 1000 ML IV PRN (06:00)
[2024-11-05] MEDS: GABAPENTIN 400 MG CAP PO SCH (07:53)
[2024-11-05] MEDS: ESCITALOPRAM OXALATE 10 MG TABLET PO SCH (07:54)
[2024-11-05] MEDS: METOPROLOL SUCC. 100 MG *XL* TAB PO SCH (07:54)
[2024-11-05] MEDS: EZETIMIBE 10 MG TABLET PO SCH (07:54)
[2024-11-05] MEDS: MULTIVITAMINS/MINERALS THERAP 1 TAB PO SCH (07:54)
[2024-11-05 08:46] LABS: VANCOMYCIN RANDOM 19.5 UG/ML
[2024-11-05] MEDS: HEPARIN 1,000 UNITS/ML 10 ML VIAL (FOR RADIOLOGY & DIALYSIS ONLY) XX SCH (09:41)
[2024-11-05 10:12] LABS: ERYTHROCYTE SEDIMENTATION RATE 85 mm/hr (0-20)
[2024-11-05 10:25] LABS: C REACTIVE PROTEIN QUANTITATIV 32.22 MG/DL (<1.0)
[2024-11-05] MEDS ORDERED: LIDOCAINE 1% MDV 20 ML VIAL As Ordered ONE (15:57)
[2024-11-05] MEDS: ceFAZolin SOD 1 GM in DEXTROSE 5% (D5W) ADV/MINI-BAG 50 ML IV SCH (17:02)
[2024-11-05] MEDS: HYDROMORPHONE HCL 0.5 MG/0.5 ML SYRINGE IV PRN (17:09)
[2024-11-05] MEDS ORDERED: GLUCAGON INJ 1 MG VIAL SC PRN (18:55)
[2024-11-05] MEDS ORDERED: DEXTROSE 50% 50 ML SYRINGE IV PRN (18:55)
[2024-11-05] MEDS ORDERED: GLUCOSE 4 GM CHEW PO PRN (18:55)
[2024-11-05] MEDS: INSULIN LISPRO (NovoLOG) PER UNIT SC SCH (20:38)
[2024-11-05] MEDS: guaiFENesin ER TABLET 600 MG TAB PO SCH (20:40)
[2024-11-06] VITALS (31 sets, daily range): BP systolic 125–155; BP diastolic 63–81; TEMP 97.6–102.4; O2SAT 84–100
[2024-11-06 05:42] LABS: BASO # 0.0 10^3/uL (0.0-0.2); BASO % 0.1 % (0.0-1.0); EOS # 0.2 10^3/uL (0.0-0.5); EOS % 2.0 % (0.0-3.0); LYMPH # 0.3 10^3/uL (1.5-5.0); LYMPH % 4.1 % (24.0-44.0); MONO # 0.5 10^3/uL (0.0-0.8); MONO % 6.7 % (2.0-8.0); NEUTROPHILS # 6.8 10^3/uL (1.5-8.5); NEUTROPHILS % 86.2 % (36.0-66.0); PLATELET COUNT, AUTOMATED 143 10^3/uL (150-450)
[2024-11-06 06:04] LABS: CALCIUM LEVEL 8.1 MG/DL (8.5-10.1); CARBON DIOXIDE LEVEL 24.0 MMOL/L (20-31); CHLORIDE LEVEL 101.0 MMOL/L (98-107); CREATININE FOR GFR 2.61 MG/DL (0.70-1.30); GLOMERULAR FILTRATION RATE 27.9 (>56); MAGNESIUM LEVEL 2.0 MG/DL (1.8-2.4); POTASSIUM SERUM 4.1 MMOL/L (3.5-5.1); SODIUM LEVEL 137.0 MMOL/L (136-145)
[2024-11-06 06:06] LABS: C REACTIVE PROTEIN QUANTITATIV 24.48 MG/DL (<1.0)
[2024-11-06 06:25] LABS: ERYTHROCYTE SEDIMENTATION RATE 59 mm/hr (0-20)
[2024-11-06] MEDS: INSULIN LISPRO (NovoLOG) PER UNIT SC SCH (08:53)
[2024-11-07] VITALS (15 sets, daily range): BP systolic 124–156; BP diastolic 60–81; TEMP 97–99.6; O2SAT 72–100
[2024-11-07 05:34] LABS: BASO # 0.0 10^3/uL (0.0-0.2); BASO % 0.3 % (0.0-1.0); EOS # 0.3 10^3/uL (0.0-0.5); EOS % 4.2 % (0.0-3.0); LYMPH # 0.8 10^3/uL (1.5-5.0); LYMPH % 11.6 % (24.0-44.0); MONO # 0.6 10^3/uL (0.0-0.8); MONO % 9.3 % (2.0-8.0); NEUTROPHILS # 4.8 10^3/uL (1.5-8.5); NEUTROPHILS % 74.0 % (36.0-66.0); PLATELET COUNT, AUTOMATED 134 10^3/uL (150-450)
[2024-11-07 05:47] LABS: ERYTHROCYTE SEDIMENTATION RATE 46 mm/hr (0-20)
[2024-11-07 06:04] LABS: C REACTIVE PROTEIN QUANTITATIV 14.99 MG/DL (<1.0); CALCIUM LEVEL 8.1 MG/DL (8.5-10.1); CARBON DIOXIDE LEVEL 23.0 MMOL/L (20-31); CHLORIDE LEVEL 98.0 MMOL/L (98-107); CREATININE FOR GFR 3.66 MG/DL (0.70-1.30); GLOMERULAR FILTRATION RATE 18.6 (>56); MAGNESIUM LEVEL 2.2 MG/DL (1.8-2.4); POTASSIUM SERUM 4.4 MMOL/L (3.5-5.1); SODIUM LEVEL 134.0 MMOL/L (136-145)
[2024-11-07] MEDS ORDERED: dexmedeTOMIDine (4 MCG/ML) 200 MCG/50 ML BTL As Ordered ONE (07:51)
[2024-11-07] MEDS ORDERED: ONDANSETRON 4MG 2ML VIAL As Ordered ONE (07:51)
[2024-11-07] MEDS ORDERED: LIDOCAINE 2% 100 MG/5 ML SDV (FOR ANES.) As Ordered ONE (07:51)
[2024-11-07] MEDS ORDERED: MIDAZOLAM INJ 2 MG/2 ML VIAL As Ordered ONE (07:52)
[2024-11-07] MEDS: HYDROMORPHONE HCL 0.5 MG/0.5 ML SYRINGE IV PRN (08:02)
[2024-11-07] MEDS: TRANEXAMIC ACID 100 MG/ML 10ML VIAL As Ordered ONE (08:54)
[2024-11-07] MEDS ORDERED: ACETAMINOPHEN 1000MG/100ML IV BAG As Ordered ONE (09:13)
[2024-11-07] MEDS ORDERED: PHENYLephrine 500MCG 5ML (100MCG/ML) SYRINGE As Ordered ONE (09:20)
[2024-11-07] MEDS: LIDOCAINE W/EPINEPHrine 1% 20 ML VIAL As Ordered ONE (09:28)
[2024-11-07] MEDS: HYDROMORPHONE HCL 0.5 MG/0.5 ML SYRINGE IV ONE (13:23)
[2024-11-07] MEDS ORDERED: ceFAZolin SOD 1 GM in DEXTROSE 5% (D5W) ADV/MINI-BAG 50 ML IV SCH (16:00)
[2024-11-08] VITALS (26 sets, daily range): BP systolic 123–142; BP diastolic 60–67; TEMP 97.3–98.7; O2SAT 52–100
[2024-11-08 05:47] LABS: BASO # 0.0 10^3/uL (0.0-0.2); BASO % 0.5 % (0.0-1.0); EOS # 0.3 10^3/uL (0.0-0.5); EOS % 3.8 % (0.0-3.0); LYMPH # 0.8 10^3/uL (1.5-5.0); LYMPH % 12.6 % (24.0-44.0); MONO # 0.6 10^3/uL (0.0-0.8); MONO % 9.6 % (2.0-8.0); NEUTROPHILS # 4.8 10^3/uL (1.5-8.5); NEUTROPHILS % 71.8 % (36.0-66.0); PLATELET COUNT, AUTOMATED 140 10^3/uL (150-450)
[2024-11-08 05:53] LABS: ERYTHROCYTE SEDIMENTATION RATE 97 mm/hr (0-20)
[2024-11-08 06:10] LABS: CALCIUM LEVEL 7.8 MG/DL (8.5-10.1); CARBON DIOXIDE LEVEL 22.0 MMOL/L (20-31); CHLORIDE LEVEL 101.0 MMOL/L (98-107); CREATININE FOR GFR 4.32 MG/DL (0.70-1.30); GLOMERULAR FILTRATION RATE 15.3 (>56); MAGNESIUM LEVEL 2.2 MG/DL (1.8-2.4); POTASSIUM SERUM 4.8 MMOL/L (3.5-5.1); SODIUM LEVEL 136.0 MMOL/L (136-145)
[2024-11-08 06:21] LABS: C REACTIVE PROTEIN QUANTITATIV 13.25 MG/DL (<1.0)
[2024-11-08] MEDS ORDERED: ENOXAPARIN 30 MG/0.3 ML SYRINGE (J1650 PER 10MG) SC SCH (09:00)
[2024-11-08] MEDS ORDERED: SODIUM CHLORIDE 0.9% 1000 ML IV PRN (09:30)
[2024-11-08] MEDS ORDERED: HEPARIN 1,000 UNITS/ML 10 ML VIAL (FOR RADIOLOGY & DIALYSIS ONLY) IV PRN (09:30)
[2024-11-08] MEDS: NS (Normal Saline) 0.9% 1,000 ML IV SCH (12:00)
[2024-11-08] MEDS ORDERED: ceFAZolin SODIUM 2 GM in DEXTROSE 5% (D5W) ADV/MINI-BAG 50 ML IV ONE (12:00)
[2024-11-08] MEDS: MIDAZOLAM INJ 2 MG/2 ML VIAL IV PRN (12:36)
[2024-11-08] MEDS: HEPARIN 1,000 UNITS/ML 10 ML VIAL (FOR RADIOLOGY & DIALYSIS ONLY) IV PRN (12:47)
[2024-11-08] MEDS: LIDOCAINE 1% MDV 20 ML VIAL SC SCH (12:47)
[2024-11-08] MEDS: HEPARIN 1,000 UNITS/ML 10 ML VIAL (FOR RADIOLOGY & DIALYSIS ONLY) XX SCH (13:48)
[2024-11-08] MEDS: PERCOCET 5MG/325MG TAB PO PRN (18:15)
[2024-11-08] MEDS: HEPARIN SOD 5000 UNITS/ML 1 ML VIAL/SYRINGE SQ SCH (18:16)
[2024-11-09] VITALS (15 sets, daily range): BP systolic 122–143; BP diastolic 58–73; TEMP 97.2–98.2; O2SAT 93–99
[2024-11-09 06:06] LABS: BASO # 0.0 10^3/uL (0.0-0.2); BASO % 0.3 % (0.0-1.0); EOS # 0.2 10^3/uL (0.0-0.5); EOS % 3.2 % (0.0-3.0); LYMPH # 1.0 10^3/uL (1.5-5.0); LYMPH % 14.5 % (24.0-44.0); MONO # 0.6 10^3/uL (0.0-0.8); MONO % 8.5 % (2.0-8.0); NEUTROPHILS # 4.8 10^3/uL (1.5-8.5); NEUTROPHILS % 70.1 % (36.0-66.0); PLATELET COUNT, AUTOMATED 156 10^3/uL (150-450)
[2024-11-09 06:32] LABS: C REACTIVE PROTEIN QUANTITATIV 9.65 MG/DL (<1.0); CALCIUM LEVEL 7.5 MG/DL (8.5-10.1); CARBON DIOXIDE LEVEL 29.0 MMOL/L (20-31); CHLORIDE LEVEL 102.0 MMOL/L (98-107); CREATININE FOR GFR 2.86 MG/DL (0.70-1.30); GLOMERULAR FILTRATION RATE 25.0 (>56); MAGNESIUM LEVEL 2.0 MG/DL (1.8-2.4); POTASSIUM SERUM 3.9 MMOL/L (3.5-5.1); SODIUM LEVEL 141.0 MMOL/L (136-145)
[2024-11-09] MEDS: PERCOCET 5MG/325MG TAB PO PRN (12:55)
[2024-11-09] MEDS ORDERED: PERC10TA26 PO (15:19)
[2024-11-10] MEDS ORDERED: HEPARIN 1,000 UNITS/ML 10 ML VIAL (FOR RADIOLOGY & DIALYSIS ONLY) XX SCH (06:00)
[2024-11-10] MEDS ORDERED: SODIUM CHLORIDE 0.9% 1000 ML IV PRN (06:00)
[2024-11-10] MEDS ORDERED: HEPARIN 1,000 UNITS/ML 10 ML VIAL (FOR RADIOLOGY & DIALYSIS ONLY) IV PRN (06:00)
== END 2024-11-09 17:18 | disposition home or self-care (01) | DRG 856 ==
LOC: M PCU 02:00
PROVIDERS: ADMIT Internal Medicine; ATTEND Internal Medicine
PROC: 08DJ3ZZ Extraction of Right Lens, Percutaneous Approach (ICD-10-PCS; 2024-11-01)
PROC: 08RJ3JZ Replacement of Right Lens with Synthetic Substitute, Percutaneous Approach (ICD-10-PCS; 2024-11-01)
PROC: 5A1D70Z Performance of Urinary Filtration, Intermittent, Less than 6 Hours Per Day (ICD-10-PCS; 2024-11-04)
PROC: 05PY33Z Removal of Infusion Device from Upper Vein, Percutaneous Approach (ICD-10-PCS; 2024-11-05)
PROC: B246ZZZ Ultrasonography of Right and Left Heart (ICD-10-PCS; 2024-11-05)
PROC: 0JCL0ZZ Extirpation of Matter from Right Upper Leg Subcutaneous Tissue and Fascia, Open Approach (ICD-10-PCS; 2024-11-07)
PROC: 0JBN0ZZ Excision of Right Lower Leg Subcutaneous Tissue and Fascia, Open Approach (ICD-10-PCS; principal; 2024-11-07 08:30)
PROC: 0JH63XZ Insertion of Tunneled Vascular Access Device into Chest Subcutaneous Tissue and Fascia, Percutaneous Approach (ICD-10-PCS; 2024-11-08)
PROC: 02H633Z Insertion of Infusion Device into Right Atrium, Percutaneous Approach (ICD-10-PCS; 2024-11-08)
DX: T81.41XA Infection following a procedure, superficial incisional surgical site, initial encounter (principal); N18.6 End stage renal disease; A41.01 Sepsis due to Methicillin susceptible Staphylococcus aureus; K86.1 Other chronic pancreatitis; I50.32 Chronic diastolic (congestive) heart failure; I13.2 Hypertensive heart and chronic kidney disease with heart failure and with stage 5 chronic kidney disease, or end stage renal disease; E87.20 Acidosis, unspecified; M96.840 Postprocedural hematoma of a musculoskeletal structure following a musculoskeletal system procedure; T82.7XXA Infection and inflammatory reaction due to other cardiac and vascular devices, implants and grafts, initial encounter; E11.22 Type 2 diabetes mellitus with diabetic chronic kidney disease; G47.33 Obstructive sleep apnea (adult) (pediatric); E78.5 Hyperlipidemia, unspecified; F32.A Depression, unspecified; F17.210 Nicotine dependence, cigarettes, uncomplicated; E11.42 Type 2 diabetes mellitus with diabetic polyneuropathy; J44.9 Chronic obstructive pulmonary disease, unspecified; M25.461 Effusion, right knee; G89.29 Other chronic pain; K76.0 Fatty (change of) liver, not elsewhere classified; I25.10 Atherosclerotic heart disease of native coronary artery without angina pectoris; D63.1 Anemia in chronic kidney disease; Z95.1 Presence of aortocoronary bypass graft; Z86.73 Personal history of transient ischemic attack (TIA), and cerebral infarction without residual deficits; Z95.3 Presence of xenogenic heart valve; Z79.82 Long term (current) use of aspirin; Z79.4 Long term (current) use of insulin; Z79.899 Other long term (current) drug therapy; Z88.8 Allergy status to other drugs, medicaments and biological substances; Z99.2 Dependence on renal dialysis; Z91.158 Patient's noncompliance with renal dialysis for other reason; Z96.641 Presence of right artificial hip joint

== ENCOUNTER → 2024-11-18 | Outpatient (CLI) | payer MEDICARE, MEDICAID ==
[~2024-11-18] MED LIST changes: +CIPR0.3S37 OD; +KETO5DRO32 OD; +MAGN400T35 PO; +PERC10TA26 PO; +PREDOPD OD
== END ==
LOC: M SOG 16:13
PROVIDERS: ATTEND Neuromusculoskeletal Medicine, Sports Medicine
DX: M25.551 Pain in right hip (principal)

== ENCOUNTER 2024-12-22 15:29 | Inpatient (IN) | payer MEDICARE, MEDICAID ==
[~2024-12-22] VITALS: Ht 182.9 cm; Wt 68.9 kg
[~2024-12-22 15:29] MED LIST changes: -EZET10TA21 PO; +EZET10TA57 PO
[2024-12-22 16:22] LABS: BASO # 0.0 10^3/uL (0.0-0.2); BASO % 0.4 % (0.0-1.0); EOS # 0.1 10^3/uL (0.0-0.5); EOS % 0.8 % (0.0-3.0); LYMPH # 0.9 10^3/uL (1.5-5.0); LYMPH % 9.5 % (24.0-44.0); MONO # 1.2 10^3/uL (0.0-0.8); MONO % 12.2 % (2.0-8.0); NEUTROPHILS # 7.3 10^3/uL (1.5-8.5); NEUTROPHILS % 76.7 % (36.0-66.0); PLATELET COUNT, AUTOMATED 288 10^3/uL (150-450)
[2024-12-22 17:07] LABS: ALT/SGPT 10.0 U/L (7.0-40); AST/SGOT 23.0 U/L (<34); CALCIUM LEVEL 8.6 MG/DL (8.5-10.1); CARBON DIOXIDE LEVEL 26.0 MMOL/L (20-31); CHLORIDE LEVEL 97.0 MMOL/L (98-107); CK-MB VALUE MASS 2.1 NG/ML (<3.6); CPK CREATINE PHOSPHOKINASE 40.0 U/L (46-171); CREATININE FOR GFR 1.86 MG/DL (0.70-1.30); FREE T4 1.49 NG/DL (0.89-1.76); GLOMERULAR FILTRATION RATE 42.0 (>56); MAGNESIUM LEVEL 2.1 MG/DL (1.8-2.4); MB/CK RELATIVE INDEX 5.25 (< OR =4); PHOSPHORUS LEVEL 2.8 MG/DL (2.5-4.9); POTASSIUM SERUM 3.3 MMOL/L (3.5-5.1); SODIUM LEVEL 137.0 MMOL/L (136-145)
[2024-12-22] MEDS: METOPROLOL 5 MG/5 ML VIAL IV SCH (17:12)
[2024-12-22 17:33] LABS: INR 1.08
[2024-12-22 18:48] LABS: CK-MB VALUE MASS 1.5 NG/ML (<3.6)
[2024-12-22] MEDS: POTASSIUM CHLORIDE 10MEQ SR TABLET PO ONE (18:52)
[2024-12-22 18:53] LABS: CPK CREATINE PHOSPHOKINASE 47.0 U/L (46-171); MB/CK RELATIVE INDEX 3.19 (< OR =4)
[2024-12-22] MEDS ORDERED: SYMB80INH INH (19:29)
[2024-12-22] MEDS ORDERED: HOME MED LIST COMPLETE! XX SCH (19:30)
[2024-12-22] MEDS: AMIODARONE 200 MG TAB PO ONE (19:42)
[2024-12-22] MEDS: METOPROLOL SUCC. 50 MG *XL* TAB PO ONE (19:42)
[2024-12-22] MEDS: PERCOCET 5MG/325MG TAB PO ONE (19:46)
[2024-12-22] MEDS ORDERED: ACETAMINOPHEN 325 MG TAB PO PRN (20:20)
[2024-12-22] MEDS ORDERED: GLUCOSE 4 GM CHEW PO PRN (21:10)
[2024-12-22] MEDS ORDERED: DEXTROSE 50% 50 ML SYRINGE IV PRN (21:10)
[2024-12-22] MEDS ORDERED: GLUCAGON INJ 1 MG VIAL SC PRN (21:10)
[2024-12-22] MEDS: LEVALBUTEROL 1.25 MG 0.5ML CONCENTRATE NEB NEB ONE (22:00)
[2024-12-22] MEDS: ATORVASTATIN 20 MG TAB PO SCH (22:05)
[2024-12-22] MEDS: PANTOPRAZOLE 40MG TAB PO SCH (22:06)
[2024-12-22] MEDS: DOCUSATE SODIUM 100 MG CAPSULE PO SCH (22:06)
[2024-12-22] MEDS: LanTUS (INSULIN GLARGINE INJ) 1 UNITS/0.01 ML SC SCH (22:06)
[2024-12-23] VITALS (8 sets, daily range): BP systolic 130–168; BP diastolic 68–99; TEMP 97.2–98.8; O2SAT 90–96
[2024-12-23] MEDS ORDERED: LEVALBUTEROL 1.25 MG 0.5ML CONCENTRATE NEB INH PRN (02:00)
[2024-12-23] MEDS: METOPROLOL 5 MG/5 ML VIAL IV STA (02:06)
[2024-12-23] MEDS: AMIODARONE HCL 150 MG in IV 1 EA IV SCH (02:23)
[2024-12-23] MEDS: NS 500 ML IV ONE (02:24)
[2024-12-23] MEDS: AMIODARONE HCL 360 MG in IV 1 EA IV SCH ×2 (02:37→08:57)
[2024-12-23] MEDS: KCL 10MEQ/100ML SWI (KRUN) 10 MEQ in IV 1 EA IV SCH (02:50)
[2024-12-23] MEDS: INSULIN LISPRO (NovoLOG) PER UNIT SC SCH ×2 (08:55→21:00)
[2024-12-23] MEDS: EZETIMIBE 10 MG TABLET PO SCH (08:55)
[2024-12-23] MEDS: GABAPENTIN 400 MG CAP PO SCH (08:56)
[2024-12-23] MEDS: METOPROLOL SUCC. 50 MG *XL* TAB PO SCH (08:56)
[2024-12-23] MEDS: SEVELAMER *CARBONate* 800 MG TAB PO SCH (08:56)
[2024-12-23] MEDS: ESCITALOPRAM OXALATE 10 MG TABLET PO SCH (08:57)
[2024-12-23] MEDS ORDERED: HEPARIN SOD 5000 UNITS/ML 1 ML VIAL/SYRINGE SC SCH (09:00)
[2024-12-23] MEDS ORDERED: AMIODARONE 200 MG TAB PO SCH (09:00)
[2024-12-23] MEDS: APIXABAN 2.5 MG TAB PO SCH (09:05)
[2024-12-23 09:24] LABS: BASO # 0.0 10^3/uL (0.0-0.2); BASO % 0.2 % (0.0-1.0); EOS # 0.1 10^3/uL (0.0-0.5); EOS % 0.8 % (0.0-3.0); LYMPH # 0.9 10^3/uL (1.5-5.0); LYMPH % 9.2 % (24.0-44.0); MONO # 1.0 10^3/uL (0.0-0.8); MONO % 10.5 % (2.0-8.0); NEUTROPHILS # 7.7 10^3/uL (1.5-8.5); NEUTROPHILS % 78.6 % (36.0-66.0); PLATELET COUNT, AUTOMATED 337 10^3/uL (150-450)
[2024-12-23 09:51] LABS: ALT/SGPT 9.0 U/L (7.0-40); AST/SGOT 16.0 U/L (<34); CALCIUM LEVEL 8.8 MG/DL (8.5-10.1); CARBON DIOXIDE LEVEL 27.0 MMOL/L (20-31); CHLORIDE LEVEL 99.0 MMOL/L (98-107); CREATININE FOR GFR 2.93 MG/DL (0.70-1.30); GLOMERULAR FILTRATION RATE 24.3 (>56); POTASSIUM SERUM 4.3 MMOL/L (3.5-5.1); SODIUM LEVEL 139.0 MMOL/L (136-145)
[2024-12-23] MEDS ORDERED: IPRATROPIUM 0.5 MG/ALBUTEROL 2.5 MG INH SOL UD 3 ML NEB PRN (11:10)
[2024-12-23] MEDS ORDERED: PILL CUTTER 1 EACH XX PRN (12:10)
[2024-12-23] MEDS: ASPIRIN 81 MG ENTERIC TABLET PO SCH (13:40)
[2024-12-23] MEDS: SYMBICORT 80/4.5MCG INHALER 6GM INH SCH (20:44)
[2024-12-23] MEDS: FAMOTIDINE 20 MG TAB PO SCH (21:26)
[2024-12-23] MEDS: PERCOCET 5MG/325MG TAB PO PRN (21:27)
[2024-12-24 03:44] VITALS: BP 145/77; TEMP 97; O2SAT 97
[2024-12-24] MEDS ORDERED: SODIUM CHLORIDE 0.9% 1000 ML IV PRN (06:00)
[2024-12-24] MEDS ORDERED: HEPARIN 1,000 UNITS/ML 10 ML VIAL (FOR RADIOLOGY & DIALYSIS ONLY) IV PRN (06:00)
[2024-12-24 07:11] LABS: BASO # 0.0 10^3/uL (0.0-0.2); BASO % 0.3 % (0.0-1.0); EOS # 0.4 10^3/uL (0.0-0.5); EOS % 4.3 % (0.0-3.0); LYMPH # 1.0 10^3/uL (1.5-5.0); LYMPH % 11.0 % (24.0-44.0); MONO # 0.9 10^3/uL (0.0-0.8); MONO % 10.0 % (2.0-8.0); NEUTROPHILS # 6.8 10^3/uL (1.5-8.5); NEUTROPHILS % 74.0 % (36.0-66.0); PLATELET COUNT, AUTOMATED 382 10^3/uL (150-450)
[2024-12-24 07:35] LABS: CALCIUM LEVEL 9.2 MG/DL (8.5-10.1); CARBON DIOXIDE LEVEL 28.0 MMOL/L (20-31); CHLORIDE LEVEL 96.0 MMOL/L (98-107); CREATININE FOR GFR 3.81 MG/DL (0.70-1.30); GLOMERULAR FILTRATION RATE 17.7 (>56); POTASSIUM SERUM 4.2 MMOL/L (3.5-5.1); SODIUM LEVEL 137.0 MMOL/L (136-145)
[2024-12-24 07:45] VITALS: BP 154/76; TEMP 98.7; O2SAT 95
[2024-12-24] MEDS: HEPARIN 1,000 UNITS/ML 10 ML VIAL (FOR RADIOLOGY & DIALYSIS ONLY) XX SCH (10:19)
[2024-12-24 12:32] VITALS: BP 138/86; TEMP 98.6; O2SAT 96
[2024-12-24 12:42] VITALS: BP 138/86
[2024-12-24] MEDS: AMIODARONE 200 MG TAB PO SCH (12:43)
[2024-12-24] MEDS ORDERED: AMIO200T54 PO (14:56)
[2024-12-24] MEDS ORDERED: TOPR50TA PO (14:56)
[2024-12-24] MEDS ORDERED: ELIQ2.5T PO (14:56)
== END 2024-12-24 18:05 | disposition home or self-care (01) | DRG 308 ==
LOC: M ED 15:29 → M ED INP 20:19 → M PCU 23:55
PROVIDERS: ADMIT Student in an Organized Health Care Education/Training Program; ATTEND Student in an Organized Health Care Education/Training Program
PROC: B246ZZZ Ultrasonography of Right and Left Heart (ICD-10-PCS; principal; 2024-12-23)
PROC: 5A1D70Z Performance of Urinary Filtration, Intermittent, Less than 6 Hours Per Day (ICD-10-PCS; 2024-12-24)
DX: I48.91 Unspecified atrial fibrillation (principal); N18.6 End stage renal disease; I13.2 Hypertensive heart and chronic kidney disease with heart failure and with stage 5 chronic kidney disease, or end stage renal disease; I50.32 Chronic diastolic (congestive) heart failure; K86.1 Other chronic pancreatitis; E11.22 Type 2 diabetes mellitus with diabetic chronic kidney disease; G47.33 Obstructive sleep apnea (adult) (pediatric); E78.5 Hyperlipidemia, unspecified; F32.A Depression, unspecified; E11.42 Type 2 diabetes mellitus with diabetic polyneuropathy; J44.9 Chronic obstructive pulmonary disease, unspecified; I25.10 Atherosclerotic heart disease of native coronary artery without angina pectoris; Z96.649 Presence of unspecified artificial hip joint; E87.6 Hypokalemia; G89.29 Other chronic pain; K21.9 Gastro-esophageal reflux disease without esophagitis; Z79.82 Long term (current) use of aspirin; Z79.4 Long term (current) use of insulin; Z79.899 Other long term (current) drug therapy; Z86.73 Personal history of transient ischemic attack (TIA), and cerebral infarction without residual deficits; Z95.2 Presence of prosthetic heart valve; Z56.0 Unemployment, unspecified; Z95.5 Presence of coronary angioplasty implant and graft; Z88.8 Allergy status to other drugs, medicaments and biological substances; Z99.2 Dependence on renal dialysis; Z98.49 Cataract extraction status, unspecified eye

== ENCOUNTER 2024-12-27 11:49 | Inpatient (IN) | payer MEDICARE, MEDICAID ==
[~2024-12-27] VITALS: Ht 182.9 cm; Wt 71.0 kg
[~2024-12-27 11:49] MED LIST changes: +AMIO200T54 PO; +ELIQ2.5T PO; +SYMB80INH INH; +TOPR50TA PO
[2024-12-27 14:16] LABS: BASO # 0.0 10^3/uL (0.0-0.2); BASO % 0.3 % (0.0-1.0); EOS # 0.2 10^3/uL (0.0-0.5); EOS % 1.7 % (0.0-3.0); LYMPH # 0.8 10^3/uL (1.5-5.0); LYMPH % 6.2 % (24.0-44.0); MONO # 1.0 10^3/uL (0.0-0.8); MONO % 7.8 % (2.0-8.0); NEUTROPHILS # 10.9 10^3/uL (1.5-8.5); NEUTROPHILS % 82.9 % (36.0-66.0); PLATELET COUNT, AUTOMATED 370 10^3/uL (150-450)
[2024-12-27 14:45] LABS: ALT/SGPT < 9 U/L (7.0-40); AST/SGOT 14 U/L (<34); CALCIUM LEVEL 8.5 MG/DL (8.5-10.1); CARBON DIOXIDE LEVEL 25 MMOL/L (20-31); CHLORIDE LEVEL 96 MMOL/L (98-107); CK-MB VALUE MASS 2.4 NG/ML (<3.6); CPK CREATINE PHOSPHOKINASE 30 U/L (46-171); CREATININE FOR GFR 5.60 MG/DL (0.70-1.30); GLOMERULAR FILTRATION RATE 11.2 (>56); MB/CK RELATIVE INDEX 8.00 (< OR =4); POTASSIUM SERUM 4.7 MMOL/L (3.5-5.1); SODIUM LEVEL 132 MMOL/L (136-145)
[2024-12-27 16:12] LABS: CK-MB VALUE MASS 3.5 NG/ML (<3.6)
[2024-12-27 16:13] LABS: CPK CREATINE PHOSPHOKINASE 30.0 U/L (46-171); MB/CK RELATIVE INDEX 11.66 (< OR =4)
[2024-12-27] MEDS ORDERED: MAALOX 30 ML SUSP *UDC PO PRN (18:15)
[2024-12-27] MEDS ORDERED: METO1TAB7 PO (18:22)
[2024-12-27] MEDS ORDERED: ELIQ2.5T PO (18:22)
[2024-12-27] MEDS ORDERED: AMIO200T54 PO (18:22)
[2024-12-27] MEDS ORDERED: HOME MED LIST COMPLETE! XX SCH (18:25)
[2024-12-27] MEDS ORDERED: GLUCAGON INJ 1 MG VIAL SC PRN (18:55)
[2024-12-27] MEDS ORDERED: DEXTROSE 50% 50 ML SYRINGE IV PRN (18:55)
[2024-12-27] MEDS ORDERED: GLUCOSE 4 GM CHEW PO PRN (18:55)
[2024-12-27 19:27] LABS: C REACTIVE PROTEIN QUANTITATIV 22.19 MG/DL (<1.0)
[2024-12-27] MEDS: PIPERACILLIN/TAZOBACTAM SOD 4.5 GM in DEXTROSE 5% (D5W) ADV/MINI-BAG 50 ML IV SCH (19:57)
[2024-12-27] MEDS: ATORVASTATIN 20 MG TAB PO SCH (19:57)
[2024-12-27] MEDS: AMIODARONE 200 MG TAB PO SCH (19:58)
[2024-12-27] MEDS: SYMBICORT 80/4.5MCG INHALER 6GM INH SCH (20:00)
[2024-12-27] MEDS: DOCUSATE SODIUM 100 MG CAPSULE PO SCH (20:02)
[2024-12-27] MEDS: INSULIN LISPRO (NovoLOG) PER UNIT SC SCH (20:14)
[2024-12-27] MEDS: LanTUS (INSULIN GLARGINE INJ) 1 UNITS/0.01 ML SC SCH (20:52)
[2024-12-27] MEDS: VANCOMYCIN HCL 1,500 MG, VIAL MATE ADAPTER 1 EACH in NS 500 ML IV ONE (22:16)
[2024-12-28] MEDS ORDERED: HEPARIN 1,000 UNITS/ML 10 ML VIAL (FOR RADIOLOGY & DIALYSIS ONLY) XX SCH (06:00)
[2024-12-28] MEDS ORDERED: SODIUM CHLORIDE 0.9% 1000 ML IV PRN (06:00)
[2024-12-28] MEDS ORDERED: HEPARIN 1,000 UNITS/ML 10 ML VIAL (FOR RADIOLOGY & DIALYSIS ONLY) IV PRN (06:00)
[2024-12-28 07:39] LABS: BASO # 0.0 10^3/uL (0.0-0.2); BASO % 0.2 % (0.0-1.0); EOS # 0.2 10^3/uL (0.0-0.5); EOS % 1.9 % (0.0-3.0); LYMPH # 0.7 10^3/uL (1.5-5.0); LYMPH % 5.2 % (24.0-44.0); MONO # 0.9 10^3/uL (0.0-0.8); MONO % 7.1 % (2.0-8.0); NEUTROPHILS # 10.6 10^3/uL (1.5-8.5); NEUTROPHILS % 84.4 % (36.0-66.0); PLATELET COUNT, AUTOMATED 384 10^3/uL (150-450)
[2024-12-28 08:13] LABS: CALCIUM LEVEL 8.5 MG/DL (8.5-10.1); CARBON DIOXIDE LEVEL 24.0 MMOL/L (20-31); CHLORIDE LEVEL 97.0 MMOL/L (98-107); CREATININE FOR GFR 5.97 MG/DL (0.70-1.30); GLOMERULAR FILTRATION RATE 10.4 (>56); MAGNESIUM LEVEL 2.6 MG/DL (1.8-2.4); POTASSIUM SERUM 4.9 MMOL/L (3.5-5.1); SODIUM LEVEL 133.0 MMOL/L (136-145)
[2024-12-28] MEDS: FAMOTIDINE 20 MG TAB PO SCH (08:21)
[2024-12-28] MEDS: ESCITALOPRAM OXALATE 10 MG TABLET PO SCH (08:21)
[2024-12-28] MEDS: GABAPENTIN 400 MG CAP PO SCH (08:21)
[2024-12-28] MEDS: METOPROLOL SUCC. 50 MG *XL* TAB PO SCH (08:22)
[2024-12-28] MEDS: METOPROLOL SUCC. 100 MG *XL* TAB PO SCH (08:22)
[2024-12-28] MEDS: INSULIN LISPRO (NovoLOG) PER UNIT SC SCH (08:23)
[2024-12-28 08:35] LABS: VANCOMYCIN RANDOM 21.7 UG/ML
[2024-12-28] MEDS: EZETIMIBE 10 MG TABLET PO SCH (09:00)
[2024-12-28] MEDS ORDERED: ISOVUE-370 76% 100 ML VIAL As Ordered ONE (09:28)
[2024-12-28 11:15] VITALS: BP 150/72; TEMP 98.2; O2SAT 98
[2024-12-28] MEDS ORDERED: VANCOMYCIN HCL 1,000 MG, VIAL MATE ADAPTER 1 EACH in NS 250 ML IV SCH (16:00)
[2024-12-28] MEDS ORDERED: VANCOMYCIN HCL 750 MG, VIAL MATE ADAPTER 1 EACH in NS 250 ML IV SCH (16:00)
[2024-12-28] MEDS: DEXTROSE 5% IV SCH (16:58)
[2024-12-28] MEDS: ADV IV SCH (16:58)
[2024-12-28] MEDS: MINI IV SCH (16:58)
[2024-12-28] MEDS: CEFAZOLIN SODIUM IV SCH (16:58)
[2024-12-28] MEDS: ACETAMINOPHEN 325 MG TAB PO PRN (16:59)
[2024-12-28 20:00] VITALS: BP 143/70; TEMP 97.8; O2SAT 100
[2024-12-29] VITALS (9 sets, daily range): BP systolic 99–141; BP diastolic 49–65; TEMP 96.8–99.5; O2SAT 92–100
[2024-12-29] MEDS ORDERED: SODIUM CHLORIDE 0.9% 1000 ML IV PRN (06:00)
[2024-12-29] MEDS ORDERED: HEPARIN 1,000 UNITS/ML 10 ML VIAL (FOR RADIOLOGY & DIALYSIS ONLY) IV PRN (06:00)
[2024-12-29 08:24] LABS: ALT/SGPT < 9 U/L (7.0-40); AST/SGOT 9 U/L (<34); CALCIUM LEVEL 8.5 MG/DL (8.5-10.1); CARBON DIOXIDE LEVEL 22 MMOL/L (20-31); CHLORIDE LEVEL 98 MMOL/L (98-107); CREATININE FOR GFR 6.45 MG/DL (0.70-1.30); GLOMERULAR FILTRATION RATE 9.4 (>56); MAGNESIUM LEVEL 2.7 MG/DL (1.8-2.4); POTASSIUM SERUM 4.6 MMOL/L (3.5-5.1); SODIUM LEVEL 134 MMOL/L (136-145)
[2024-12-29] MEDS: HEPARIN 1,000 UNITS/ML 10 ML VIAL (FOR RADIOLOGY & DIALYSIS ONLY) XX SCH (09:08)
[2024-12-29] MEDS ORDERED: ETOMIDATE 20 MG/10 ML VIAL As Ordered ONE (12:32)
[2024-12-29] MEDS ORDERED: LIDOCAINE 2% 100 MG/5 ML SDV (FOR ANES.) As Ordered ONE (12:32)
[2024-12-29] MEDS ORDERED: MIDAZOLAM INJ 2 MG/2 ML VIAL As Ordered ONE (12:33)
[2024-12-29] MEDS ORDERED: CISATRACURIUM 2 MG/ML 5 ML VIAL As Ordered ONE (12:38)
[2024-12-29] MEDS ORDERED: ROCURONIUM BROMIDE 50MG/5ML VIAL As Ordered ONE (13:49)
[2024-12-29] MEDS ORDERED: ACETAMINOPHEN 1000MG/100ML IV BAG As Ordered ONE (15:37)
[2024-12-29] MEDS ORDERED: SUGAMMADEX SODIUM 500 MG/5 ML VIAL As Ordered ONE (15:39)
[2024-12-29] MEDS: VANCOMYCIN 1000MG/20ML VIAL As Ordered ONE (15:40)
[2024-12-29] MEDS ORDERED: ONDANSETRON 4MG 2ML VIAL IV PRN (16:05)
[2024-12-29] MEDS: LR 1,000 ML IV SCH (16:05)
[2024-12-29] MEDS: HYDROMORPHONE HCL 0.5 MG/0.5 ML SYRINGE IV PRN (16:17)
[2024-12-30] VITALS (9 sets, daily range): BP systolic 92–133; BP diastolic 52–63; TEMP 97.4–98.8; O2SAT 88–99
[2024-12-30 08:15] LABS: BASO # 0.0 10^3/uL (0.0-0.2); BASO % 0.3 % (0.0-1.0); EOS # 0.2 10^3/uL (0.0-0.5); EOS % 1.7 % (0.0-3.0); LYMPH # 0.7 10^3/uL (1.5-5.0); LYMPH % 6.5 % (24.0-44.0); MONO # 0.9 10^3/uL (0.0-0.8); MONO % 8.6 % (2.0-8.0); NEUTROPHILS # 8.1 10^3/uL (1.5-8.5); NEUTROPHILS % 80.4 % (36.0-66.0); PLATELET COUNT, AUTOMATED 308 10^3/uL (150-450)
[2024-12-30 08:40] LABS: CALCIUM LEVEL 8.1 MG/DL (8.5-10.1); CARBON DIOXIDE LEVEL 25.0 MMOL/L (20-31); CHLORIDE LEVEL 103.0 MMOL/L (98-107); CREATININE FOR GFR 4.15 MG/DL (0.70-1.30); GLOMERULAR FILTRATION RATE 16.0 (>56); MAGNESIUM LEVEL 2.3 MG/DL (1.8-2.4); PHOSPHORUS LEVEL 4.9 MG/DL (2.5-4.9); POTASSIUM SERUM 4.1 MMOL/L (3.5-5.1); SODIUM LEVEL 135.0 MMOL/L (136-145)
[2024-12-30 16:27] LABS: BASO # 0.0 10^3/uL (0.0-0.2); BASO % 0.3 % (0.0-1.0); EOS # 0.2 10^3/uL (0.0-0.5); EOS % 2.0 % (0.0-3.0); LYMPH # 0.9 10^3/uL (1.5-5.0); LYMPH % 8.9 % (24.0-44.0); MONO # 0.8 10^3/uL (0.0-0.8); MONO % 8.7 % (2.0-8.0); NEUTROPHILS # 7.3 10^3/uL (1.5-8.5); NEUTROPHILS % 76.0 % (36.0-66.0); PLATELET COUNT, AUTOMATED 325 10^3/uL (150-450)
[2024-12-30] MEDS: MORPHINE 4 MG/ML 1 ML VIAL IV ONE (17:07)
[2024-12-31] VITALS: BP 118/56; TEMP 98.5; O2SAT 98
[2024-12-31 04:00] VITALS: BP 116/55; TEMP 98.1; O2SAT 100
[2024-12-31] MEDS ORDERED: SODIUM CHLORIDE 0.9% 1000 ML IV PRN (06:00)
[2024-12-31] MEDS ORDERED: HEPARIN 1,000 UNITS/ML 10 ML VIAL (FOR RADIOLOGY & DIALYSIS ONLY) XX SCH (06:00)
[2024-12-31 08:00] VITALS: BP 143/69; TEMP 97.4; O2SAT 100
[2024-12-31 08:33] LABS: PLATELET COUNT, AUTOMATED 313 10^3/uL (150-450)
[2024-12-31] MEDS: HEPARIN 1,000 UNITS/ML 10 ML VIAL (FOR RADIOLOGY & DIALYSIS ONLY) IV PRN (08:38)
[2024-12-31 08:54] LABS: CALCIUM LEVEL 8.2 MG/DL (8.5-10.1); CARBON DIOXIDE LEVEL 25.0 MMOL/L (20-31); CHLORIDE LEVEL 99.0 MMOL/L (98-107); CREATININE FOR GFR 5.07 MG/DL (0.70-1.30); GLOMERULAR FILTRATION RATE 12.6 (>56); MAGNESIUM LEVEL 2.4 MG/DL (1.8-2.4); PHOSPHORUS LEVEL 5.3 MG/DL (2.5-4.9); POTASSIUM SERUM 4.4 MMOL/L (3.5-5.1); SODIUM LEVEL 136.0 MMOL/L (136-145)
[2024-12-31] MEDS: DARBEPOETIN 100 MCG/0.5 ML *DIALYSIS* SYRINGE IV SCH (08:56)
[2024-12-31] MEDS: IRON SUCROSE 100 MG/5 ML VIAL IV SCH (09:34)
[2024-12-31 12:00] VITALS: BP 147/67; TEMP 97.9; O2SAT 97
[2024-12-31] MEDS: MORPHINE 4 MG/ML 1 ML VIAL IV PRN (14:03)
[2024-12-31 16:00] VITALS: BP 164/70; TEMP 98.2; O2SAT 97
[2024-12-31] MEDS ORDERED: ceFAZolin SODIUM 2 GM in DEXTROSE 5% (D5W) ADV/MINI-BAG 50 ML IV SCH (16:00)
[2024-12-31] MEDS: MINI IV SCH (16:08)
[2024-12-31] MEDS: ADV IV SCH (16:08)
[2024-12-31] MEDS: DEXTROSE 5% IV SCH (16:08)
[2024-12-31] MEDS: CEFAZOLIN SODIUM IV SCH (16:08)
[2024-12-31 19:46] VITALS: BP 169/80; TEMP 97.5; O2SAT 98
[2024-12-31] MEDS: LanTUS (INSULIN GLARGINE INJ) 1 UNITS/0.01 ML SC SCH (20:23)
[2025-01-01 03:45] VITALS: BP 172/81; TEMP 97.4; O2SAT 100
[2025-01-01 03:50] VITALS: BP 163/71
[2025-01-01 08:37] LABS: PLATELET COUNT, AUTOMATED 324 10^3/uL (150-450)
[2025-01-01 09:05] LABS: CALCIUM LEVEL 8.2 MG/DL (8.5-10.1); CARBON DIOXIDE LEVEL 26.0 MMOL/L (20-31); CHLORIDE LEVEL 102.0 MMOL/L (98-107); CREATININE FOR GFR 3.13 MG/DL (0.70-1.30); GLOMERULAR FILTRATION RATE 22.5 (>56); MAGNESIUM LEVEL 2.1 MG/DL (1.8-2.4); PHOSPHORUS LEVEL 3.1 MG/DL (2.5-4.9); POTASSIUM SERUM 4.1 MMOL/L (3.5-5.1); SODIUM LEVEL 138.0 MMOL/L (136-145)
[2025-01-01] MEDS ORDERED: PILL CUTTER 1 EACH XX PRN (11:30)
[2025-01-01 12:00] VITALS: BP 160/90; TEMP 97.3; O2SAT 99
[2025-01-01 19:30] VITALS: BP 163/75; TEMP 98.6; O2SAT 100
[2025-01-02 03:36] VITALS: BP 170/81; TEMP 97.6; O2SAT 99
[2025-01-02 04:00] VITALS: BP 165/73
[2025-01-02] MEDS: FAMOTIDINE 20 MG TAB PO SCH (08:25)
[2025-01-02 09:33] LABS: PLATELET COUNT, AUTOMATED 313 10^3/uL (150-450)
[2025-01-02 10:11] LABS: CALCIUM LEVEL 8.1 MG/DL (8.5-10.1); CARBON DIOXIDE LEVEL 22.0 MMOL/L (20-31); CHLORIDE LEVEL 103.0 MMOL/L (98-107); CREATININE FOR GFR 3.75 MG/DL (0.70-1.30); GLOMERULAR FILTRATION RATE 18.1 (>56); MAGNESIUM LEVEL 2.1 MG/DL (1.8-2.4); PHOSPHORUS LEVEL 2.8 MG/DL (2.5-4.9); POTASSIUM SERUM 4.6 MMOL/L (3.5-5.1); SODIUM LEVEL 134.0 MMOL/L (136-145)
[2025-01-02 12:00] VITALS: TEMP 98.8; O2SAT 98
[2025-01-02 18:05] LABS: PLATELET COUNT, AUTOMATED 336 10^3/uL (150-450)
[2025-01-02 18:44] LABS: EOSINOPHILS 2 % (0-3); LYMPHOCYTES 15 % (16-44); METAMYELOCYTES 2 % (0-0); MONOCYTES 6 % (0-5); NEUTROPHILS 73 % (28-66)
[2025-01-02 18:45] LABS: PLATELET ESTIMATE NORMAL (NORMAL)
[2025-01-02] MEDS: ONDANSETRON 4MG 2ML VIAL IV PRN (19:52)
[2025-01-02 20:00] VITALS: BP 161/80; TEMP 98.2; O2SAT 99
[2025-01-02] MEDS ORDERED: NALOXONE INJ 0.4 MG/1 ML VIAL IV PRN (23:30)
[2025-01-03 04:00] VITALS: BP 176/82; TEMP 98.1; O2SAT 97
[2025-01-03] MEDS ORDERED: SODIUM CHLORIDE 0.9% 1000 ML IV PRN (06:00)
[2025-01-03] MEDS ORDERED: HEPARIN 1,000 UNITS/ML 10 ML VIAL (FOR RADIOLOGY & DIALYSIS ONLY) IV PRN (06:00)
[2025-01-03 06:31] LABS: PLATELET COUNT, AUTOMATED 301 10^3/uL (150-450)
[2025-01-03 07:00] LABS: CALCIUM LEVEL 8.2 MG/DL (8.5-10.1); CARBON DIOXIDE LEVEL 23.0 MMOL/L (20-31); CHLORIDE LEVEL 103.0 MMOL/L (98-107); CREATININE FOR GFR 4.17 MG/DL (0.70-1.30); GLOMERULAR FILTRATION RATE 15.9 (>56); MAGNESIUM LEVEL 2.2 MG/DL (1.8-2.4); PHOSPHORUS LEVEL 3.7 MG/DL (2.5-4.9); POTASSIUM SERUM 5.0 MMOL/L (3.5-5.1); SODIUM LEVEL 136.0 MMOL/L (136-145)
[2025-01-03 07:39] VITALS: BP 174/84; TEMP 98.1; O2SAT 98
[2025-01-03] MEDS: HEPARIN 1,000 UNITS/ML 10 ML VIAL (FOR RADIOLOGY & DIALYSIS ONLY) XX SCH (15:29)
[2025-01-03 18:00] VITALS: BP 130/62; TEMP 98.1; O2SAT 98
[2025-01-03 20:00] VITALS: BP 162/69; TEMP 98.5; O2SAT 97
[2025-01-04 03:18] VITALS: BP 162/77; TEMP 98.4; O2SAT 97
[2025-01-04 09:16] LABS: BASO # 0.1 10^3/uL (0.0-0.2); BASO % 0.4 % (0.0-1.0); EOS # 0.2 10^3/uL (0.0-0.5); EOS % 1.2 % (0.0-3.0); LYMPH # 1.0 10^3/uL (1.5-5.0); LYMPH % 8.1 % (24.0-44.0); MONO # 0.7 10^3/uL (0.0-0.8); MONO % 5.9 % (2.0-8.0); NEUTROPHILS # 9.9 10^3/uL (1.5-8.5); NEUTROPHILS % 79.4 % (36.0-66.0); PLATELET COUNT, AUTOMATED 338 10^3/uL (150-450)
[2025-01-04 09:25] LABS: CALCIUM LEVEL 7.9 MG/DL (8.5-10.1); CARBON DIOXIDE LEVEL 29.0 MMOL/L (20-31); CHLORIDE LEVEL 97.0 MMOL/L (98-107); CREATININE FOR GFR 2.66 MG/DL (0.70-1.30); GLOMERULAR FILTRATION RATE 27.3 (>56); MAGNESIUM LEVEL 1.9 MG/DL (1.8-2.4); PHOSPHORUS LEVEL 3.1 MG/DL (2.5-4.9); POTASSIUM SERUM 4.0 MMOL/L (3.5-5.1); SODIUM LEVEL 136.0 MMOL/L (136-145)
[2025-01-04 12:00] VITALS: BP_SYST 140; TEMP 98.2; O2SAT 100
[2025-01-04] MEDS: SEVELAMER *CARBONate* 800 MG TAB PO SCH (12:48)
[2025-01-04 20:21] VITALS: BP 111/58; TEMP 98.5; O2SAT 97
[2025-01-05 03:04] VITALS: BP 107/57; TEMP 98.2; O2SAT 97
[2025-01-05] MEDS ORDERED: HEPARIN 1,000 UNITS/ML 10 ML VIAL (FOR RADIOLOGY & DIALYSIS ONLY) XX SCH (06:00)
[2025-01-05] MEDS ORDERED: SODIUM CHLORIDE 0.9% 1000 ML IV PRN (06:00)
[2025-01-05 08:21] LABS: PLATELET COUNT, AUTOMATED 271 10^3/uL (150-450)
[2025-01-05 08:49] LABS: CALCIUM LEVEL 7.9 MG/DL (8.5-10.1); CARBON DIOXIDE LEVEL 27.0 MMOL/L (20-31); CHLORIDE LEVEL 99.0 MMOL/L (98-107); CREATININE FOR GFR 3.67 MG/DL (0.70-1.30); GLOMERULAR FILTRATION RATE 18.6 (>56); MAGNESIUM LEVEL 2.0 MG/DL (1.8-2.4); PHOSPHORUS LEVEL 5.2 MG/DL (2.5-4.9); POTASSIUM SERUM 5.1 MMOL/L (3.5-5.1); SODIUM LEVEL 134.0 MMOL/L (136-145)
[2025-01-05 11:50] VITALS: BP 107/56; TEMP 99; O2SAT 95
[2025-01-05] MEDS: HEPARIN 1,000 UNITS/ML 10 ML VIAL (FOR RADIOLOGY & DIALYSIS ONLY) IV PRN (13:31)
[2025-01-05 16:25] VITALS: BP 107/60; TEMP 97.5; O2SAT 95
[2025-01-05 20:11] VITALS: BP 137/64; TEMP 97.9; O2SAT 96
[2025-01-06 07:08] VITALS: BP 155/75; TEMP 97.5; O2SAT 97
[2025-01-06 07:57] LABS: BASO # 0.0 10^3/uL (0.0-0.2); BASO % 0.3 % (0.0-1.0); EOS # 0.1 10^3/uL (0.0-0.5); EOS % 0.8 % (0.0-3.0); LYMPH # 1.0 10^3/uL (1.5-5.0); LYMPH % 7.4 % (24.0-44.0); MONO # 0.8 10^3/uL (0.0-0.8); MONO % 6.4 % (2.0-8.0); NEUTROPHILS # 10.7 10^3/uL (1.5-8.5); NEUTROPHILS % 82.3 % (36.0-66.0); PLATELET COUNT, AUTOMATED 306 10^3/uL (150-450)
[2025-01-06 08:25] LABS: ALT/SGPT < 9 U/L (7.0-40); AST/SGOT 18 U/L (<34); CALCIUM LEVEL 8.0 MG/DL (8.5-10.1); CARBON DIOXIDE LEVEL 30 MMOL/L (20-31); CHLORIDE LEVEL 97 MMOL/L (98-107); CREATININE FOR GFR 2.67 MG/DL (0.70-1.30); GLOMERULAR FILTRATION RATE 27.2 (>56); POTASSIUM SERUM 4.5 MMOL/L (3.5-5.1); SODIUM LEVEL 137 MMOL/L (136-145)
[2025-01-06 14:00] VITALS: BP 125/70; TEMP 97.6; O2SAT 94
[2025-01-06 20:11] VITALS: BP 129/78; TEMP 97.5; O2SAT 96
[2025-01-07] VITALS (19 sets, daily range): BP systolic 121–187; BP diastolic 65–101; TEMP 97.1–98.3; O2SAT 72–95
[2025-01-07] MEDS ORDERED: SODIUM CHLORIDE 0.9% 1000 ML IV PRN (06:00)
[2025-01-07] MEDS ORDERED: HEPARIN 1,000 UNITS/ML 10 ML VIAL (FOR RADIOLOGY & DIALYSIS ONLY) IV PRN (06:00)
[2025-01-07 07:18] LABS: PLATELET COUNT, AUTOMATED 264 10^3/uL (150-450)
[2025-01-07 07:46] LABS: CALCIUM LEVEL 8.2 MG/DL (8.5-10.1); CARBON DIOXIDE LEVEL 27.0 MMOL/L (20-31); CHLORIDE LEVEL 100.0 MMOL/L (98-107); CREATININE FOR GFR 4.11 MG/DL (0.70-1.30); GLOMERULAR FILTRATION RATE 16.2 (>56); POTASSIUM SERUM 5.0 MMOL/L (3.5-5.1); SODIUM LEVEL 137.0 MMOL/L (136-145)
[2025-01-07] MEDS: HEPARIN 1,000 UNITS/ML 10 ML VIAL (FOR RADIOLOGY & DIALYSIS ONLY) XX SCH (09:47)
[2025-01-07] MEDS ORDERED: ONDANSETRON 4MG 2ML VIAL As Ordered ONE (13:04)
[2025-01-07] MEDS ORDERED: dexAMETHasone 4 MG/ML 1 ML VIAL As Ordered ONE (13:04)
[2025-01-07] MEDS: LIDOCAINE 1% SDV 30 ML VIAL As Ordered ONE (13:19)
[2025-01-07] MEDS ORDERED: ONDANSETRON 4MG 2ML VIAL IV PRN (15:30)
[2025-01-07] MEDS: HYDROMORPHONE HCL 0.5 MG/0.5 ML SYRINGE IV PRN (15:40)
[2025-01-07] MEDS ORDERED: CISATRACURIUM 2 MG/ML 5 ML VIAL ONE (18:58)
[2025-01-08 01:59] VITALS: BP 154/75; TEMP 97.5; O2SAT 96
[2025-01-08 06:00] VITALS: BP 154/74; TEMP 97.5; O2SAT 97
[2025-01-08 10:00] VITALS: BP 132/67; TEMP 97.3; O2SAT 96
[2025-01-08 14:00] VITALS: BP 133/68; TEMP 97.5; O2SAT 98
[2025-01-08 19:47] VITALS: BP 114/55; TEMP 97.9; O2SAT 94
[2025-01-09 04:52] VITALS: BP 129/80; TEMP 97.7; O2SAT 97
[2025-01-09 07:17] LABS: PLATELET COUNT, AUTOMATED 260 10^3/uL (150-450)
[2025-01-09 07:34] LABS: C REACTIVE PROTEIN QUANTITATIV 4.16 MG/DL (<1.0); CALCIUM LEVEL 8.2 MG/DL (8.5-10.1); CARBON DIOXIDE LEVEL 26.0 MMOL/L (20-31); CHLORIDE LEVEL 100.0 MMOL/L (98-107); CREATININE FOR GFR 3.82 MG/DL (0.70-1.30); GLOMERULAR FILTRATION RATE 17.7 (>56); MAGNESIUM LEVEL 2.0 MG/DL (1.8-2.4); POTASSIUM SERUM 4.3 MMOL/L (3.5-5.1); SODIUM LEVEL 138.0 MMOL/L (136-145)
[2025-01-09 14:00] VITALS: BP 177/84; TEMP 97.9; O2SAT 93
[2025-01-09] MEDS: GENTAMICIN 0.3% OPHTH SOL 5 ML BTL OS SCH (16:23)
[2025-01-09 21:30] VITALS: BP 128/70; TEMP 97
[2025-01-09 21:52] VITALS: O2SAT 93
[2025-01-10] MEDS ORDERED: HEPARIN 1,000 UNITS/ML 10 ML VIAL (FOR RADIOLOGY & DIALYSIS ONLY) IV PRN (06:00)
[2025-01-10] MEDS ORDERED: SODIUM CHLORIDE 0.9% 1000 ML IV PRN (06:00)
[2025-01-10 06:01] VITALS: BP 135/71; TEMP 97.5; O2SAT 94
[2025-01-10 06:27] LABS: PLATELET COUNT, AUTOMATED 243 10^3/uL (150-450)
[2025-01-10 07:04] LABS: CALCIUM LEVEL 8.2 MG/DL (8.5-10.1); CARBON DIOXIDE LEVEL 24.0 MMOL/L (20-31); CHLORIDE LEVEL 100.0 MMOL/L (98-107); CREATININE FOR GFR 4.7 MG/DL (0.70-1.30); GLOMERULAR FILTRATION RATE 13.8 (>56); MAGNESIUM LEVEL 1.9 MG/DL (1.8-2.4); POTASSIUM SERUM 4.6 MMOL/L (3.5-5.1); SODIUM LEVEL 136.0 MMOL/L (136-145)
[2025-01-10] MEDS: HEPARIN 1,000 UNITS/ML 10 ML VIAL (FOR RADIOLOGY & DIALYSIS ONLY) XX SCH (09:52)
[2025-01-10 14:00] VITALS: BP 151/71; TEMP 97.9; O2SAT 96
[2025-01-10 20:07] VITALS: BP 139/72; TEMP 97.2
[2025-01-11 06:24] LABS: PLATELET COUNT, AUTOMATED 233 10^3/uL (150-450)
[2025-01-11 06:45] LABS: CALCIUM LEVEL 8.1 MG/DL (8.5-10.1); CARBON DIOXIDE LEVEL 25.0 MMOL/L (20-31); CHLORIDE LEVEL 102.0 MMOL/L (98-107); CREATININE FOR GFR 3.24 MG/DL (0.70-1.30); GLOMERULAR FILTRATION RATE 21.6 (>56); MAGNESIUM LEVEL 2.0 MG/DL (1.8-2.4); POTASSIUM SERUM 4.0 MMOL/L (3.5-5.1); SODIUM LEVEL 141.0 MMOL/L (136-145)
[2025-01-11 06:54] VITALS: BP 149/75; TEMP 97.9; O2SAT 96
[2025-01-11 14:00] VITALS: BP 153/94; TEMP 97.7; O2SAT 95
[2025-01-11 21:08] VITALS: BP 139/80; TEMP 97.2; O2SAT 97
[2025-01-12] MEDS ORDERED: HEPARIN 1,000 UNITS/ML 10 ML VIAL (FOR RADIOLOGY & DIALYSIS ONLY) IV PRN (06:00)
[2025-01-12] MEDS ORDERED: SODIUM CHLORIDE 0.9% 1000 ML IV PRN (06:00)
[2025-01-12 06:37] LABS: PLATELET COUNT, AUTOMATED 242 10^3/uL (150-450)
[2025-01-12 07:12] LABS: CALCIUM LEVEL 8.0 MG/DL (8.5-10.1); CARBON DIOXIDE LEVEL 20.0 MMOL/L (20-31); CHLORIDE LEVEL 101.0 MMOL/L (98-107); CREATININE FOR GFR 4.06 MG/DL (0.70-1.30); GLOMERULAR FILTRATION RATE 16.4 (>56); MAGNESIUM LEVEL 1.9 MG/DL (1.8-2.4); POTASSIUM SERUM 4.5 MMOL/L (3.5-5.1); SODIUM LEVEL 136.0 MMOL/L (136-145)
[2025-01-12] MEDS: HEPARIN 1,000 UNITS/ML 10 ML VIAL (FOR RADIOLOGY & DIALYSIS ONLY) XX SCH (09:27)
[2025-01-12] MEDS: NICOTINE 21 MG/24 HR 1 EA TRANSDERMAL TD SCH (12:18)
[2025-01-12 14:00] VITALS: BP 167/82; TEMP 97.5; O2SAT 98
[2025-01-12] MEDS: HEPARIN SOD 5000 UNITS/ML 1 ML VIAL/SYRINGE SQ SCH (14:14)
[2025-01-12 20:21] VITALS: BP 179/85; TEMP 97.2; O2SAT 99
[2025-01-13 06:53] LABS: PLATELET COUNT, AUTOMATED 300 10^3/uL (150-450)
[2025-01-13 06:57] VITALS: BP 166/82; TEMP 97; O2SAT 98
[2025-01-13 07:20] LABS: CALCIUM LEVEL 8.5 MG/DL (8.5-10.1); CARBON DIOXIDE LEVEL 24.0 MMOL/L (20-31); CHLORIDE LEVEL 102.0 MMOL/L (98-107); CREATININE FOR GFR 2.93 MG/DL (0.70-1.30); GLOMERULAR FILTRATION RATE 24.3 (>56); MAGNESIUM LEVEL 2.0 MG/DL (1.8-2.4); POTASSIUM SERUM 3.6 MMOL/L (3.5-5.1); SODIUM LEVEL 140.0 MMOL/L (136-145)
[2025-01-13 14:00] VITALS: BP 157/76; TEMP 97.5; O2SAT 96
[2025-01-13 20:28] VITALS: BP 161/75; TEMP 97.2; O2SAT 97
[2025-01-14 05:09] VITALS: BP 166/81; TEMP 97.2; O2SAT 97
[2025-01-14] MEDS ORDERED: SODIUM CHLORIDE 0.9% 1000 ML IV PRN (06:00)
[2025-01-14] MEDS ORDERED: HEPARIN 1,000 UNITS/ML 10 ML VIAL (FOR RADIOLOGY & DIALYSIS ONLY) IV PRN (06:00)
[2025-01-14 07:34] LABS: PLATELET COUNT, AUTOMATED 320 10^3/uL (150-450)
[2025-01-14 08:06] LABS: CALCIUM LEVEL 8.4 MG/DL (8.5-10.1); CARBON DIOXIDE LEVEL 23.0 MMOL/L (20-31); CHLORIDE LEVEL 101.0 MMOL/L (98-107); CREATININE FOR GFR 3.82 MG/DL (0.70-1.30); GLOMERULAR FILTRATION RATE 17.7 (>56); MAGNESIUM LEVEL 2.0 MG/DL (1.8-2.4); POTASSIUM SERUM 4.0 MMOL/L (3.5-5.1); SODIUM LEVEL 138.0 MMOL/L (136-145)
[2025-01-14] MEDS: HEPARIN 1,000 UNITS/ML 10 ML VIAL (FOR RADIOLOGY & DIALYSIS ONLY) XX SCH (08:31)
[2025-01-14 10:30] LABS: C REACTIVE PROTEIN QUANTITATIV 9.77 MG/DL (<1.0)
[2025-01-14 14:15] VITALS: BP 142/68; TEMP 97.5; O2SAT 96
[2025-01-14 19:41] VITALS: BP 140/67; TEMP 97.3; O2SAT 97
[2025-01-15 05:05] VITALS: BP 162/74; TEMP 97.5; O2SAT 99
[2025-01-15 08:08] LABS: PLATELET COUNT, AUTOMATED 254 10^3/uL (150-450)
[2025-01-15 08:40] LABS: CALCIUM LEVEL 8.3 MG/DL (8.5-10.1); CARBON DIOXIDE LEVEL 22.0 MMOL/L (20-31); CHLORIDE LEVEL 106.0 MMOL/L (98-107); CREATININE FOR GFR 3.08 MG/DL (0.70-1.30); GLOMERULAR FILTRATION RATE 22.9 (>56); MAGNESIUM LEVEL 1.9 MG/DL (1.8-2.4); POTASSIUM SERUM 4.1 MMOL/L (3.5-5.1); SODIUM LEVEL 141.0 MMOL/L (136-145)
[2025-01-15 14:00] VITALS: BP 144/73; TEMP 97.5; O2SAT 98
[2025-01-15 20:07] VITALS: BP 142/74; TEMP 97.3; O2SAT 98
[2025-01-16 05:03] VITALS: BP 185/90; TEMP 97.3; O2SAT 96
[2025-01-16 08:06] LABS: BASO # 0.1 10^3/uL (0.0-0.2); BASO % 0.5 % (0.0-1.0); EOS # 0.4 10^3/uL (0.0-0.5); EOS % 4.0 % (0.0-3.0); LYMPH # 0.8 10^3/uL (1.5-5.0); LYMPH % 8.8 % (24.0-44.0); MONO # 0.8 10^3/uL (0.0-0.8); MONO % 8.7 % (2.0-8.0); NEUTROPHILS # 7.3 10^3/uL (1.5-8.5); NEUTROPHILS % 77.5 % (36.0-66.0); PLATELET COUNT, AUTOMATED 257 10^3/uL (150-450)
[2025-01-16 08:43] LABS: CALCIUM LEVEL 8.2 MG/DL (8.5-10.1); CARBON DIOXIDE LEVEL 22.0 MMOL/L (20-31); CHLORIDE LEVEL 106.0 MMOL/L (98-107); CREATININE FOR GFR 4.09 MG/DL (0.70-1.30); GLOMERULAR FILTRATION RATE 16.3 (>56); POTASSIUM SERUM 4.7 MMOL/L (3.5-5.1); SODIUM LEVEL 143.0 MMOL/L (136-145)
[2025-01-16] MEDS: HYDROMORPHONE HCL 0.5 MG/0.5 ML SYRINGE IV PRN (11:36)
[2025-01-16 14:00] VITALS: BP 160/82; TEMP 97.2; O2SAT 98
[2025-01-16 22:20] VITALS: BP 161/82; TEMP 97.5; O2SAT 97
[2025-01-17] MEDS ORDERED: HEPARIN 1,000 UNITS/ML 10 ML VIAL (FOR RADIOLOGY & DIALYSIS ONLY) XX SCH (06:00)
[2025-01-17] MEDS ORDERED: SODIUM CHLORIDE 0.9% 1000 ML IV PRN (06:00)
[2025-01-17 06:30] LABS: BASO # 0.1 10^3/uL (0.0-0.2); BASO % 0.6 % (0.0-1.0); EOS # 0.6 10^3/uL (0.0-0.5); EOS % 4.9 % (0.0-3.0); LYMPH # 0.9 10^3/uL (1.5-5.0); LYMPH % 8.1 % (24.0-44.0); MONO # 0.7 10^3/uL (0.0-0.8); MONO % 6.6 % (2.0-8.0); NEUTROPHILS # 8.9 10^3/uL (1.5-8.5); NEUTROPHILS % 79.4 % (36.0-66.0); PLATELET COUNT, AUTOMATED 302 10^3/uL (150-450)
[2025-01-17 06:48] VITALS: BP 165/90; TEMP 97.7; O2SAT 97
[2025-01-17 06:55] LABS: CALCIUM LEVEL 8.4 MG/DL (8.5-10.1); CARBON DIOXIDE LEVEL 24.0 MMOL/L (20-31); CHLORIDE LEVEL 103.0 MMOL/L (98-107); CREATININE FOR GFR 4.77 MG/DL (0.70-1.30); GLOMERULAR FILTRATION RATE 13.6 (>56); POTASSIUM SERUM 4.5 MMOL/L (3.5-5.1); SODIUM LEVEL 138.0 MMOL/L (136-145)
[2025-01-17] MEDS: HEPARIN 1,000 UNITS/ML 10 ML VIAL (FOR RADIOLOGY & DIALYSIS ONLY) IV PRN (08:30)
[2025-01-17 14:00] VITALS: BP 145/71; TEMP 97; O2SAT 99
[2025-01-17 22:18] VITALS: BP 144/70; TEMP 97.5; O2SAT 98
[2025-01-18 07:36] VITALS: BP 158/81; TEMP 97.2; O2SAT 98
[2025-01-18 20:07] VITALS: BP 156/79; TEMP 97.7; O2SAT 96
[2025-01-18] MEDS: POLYVINYL ALCOHOL OPHTH SOLN 15ML (LIQUITEARS) OU PRN (23:18)
[2025-01-19] MEDS ORDERED: HEPARIN 1,000 UNITS/ML 10 ML VIAL (FOR RADIOLOGY & DIALYSIS ONLY) IV PRN (06:00)
[2025-01-19] MEDS ORDERED: SODIUM CHLORIDE 0.9% 1000 ML IV PRN (06:00)
[2025-01-19 06:52] VITALS: BP 162/78; TEMP 97.2; O2SAT 96
[2025-01-19 08:25] LABS: PLATELET COUNT, AUTOMATED 273 10^3/uL (150-450)
[2025-01-19 09:00] LABS: CALCIUM LEVEL 8.1 MG/DL (8.5-10.1); CARBON DIOXIDE LEVEL 28.0 MMOL/L (20-31); CHLORIDE LEVEL 100.0 MMOL/L (98-107); CREATININE FOR GFR 3.96 MG/DL (0.70-1.30); GLOMERULAR FILTRATION RATE 16.9 (>56); POTASSIUM SERUM 4.4 MMOL/L (3.5-5.1); SODIUM LEVEL 138.0 MMOL/L (136-145)
[2025-01-19] MEDS: HEPARIN 1,000 UNITS/ML 10 ML VIAL (FOR RADIOLOGY & DIALYSIS ONLY) XX SCH (10:24)
[2025-01-19] MEDS: HEPARIN SOD 5000 UNITS/ML 1 ML VIAL/SYRINGE SQ SCH (13:14)
[2025-01-19 14:35] VITALS: BP 158/76; TEMP 97.5; O2SAT 96
[2025-01-19 20:17] VITALS: BP 148/75; TEMP 96.8; O2SAT 96
[2025-01-20 06:43] VITALS: BP 159/79; TEMP 97.2
[2025-01-20 06:43] LABS: PLATELET COUNT, AUTOMATED 322 10^3/uL (150-450)
[2025-01-20 07:13] LABS: CALCIUM LEVEL 8.5 MG/DL (8.5-10.1); CARBON DIOXIDE LEVEL 31.0 MMOL/L (20-31); CHLORIDE LEVEL 96.0 MMOL/L (98-107); CREATININE FOR GFR 2.67 MG/DL (0.70-1.30); GLOMERULAR FILTRATION RATE 27.2 (>56); POTASSIUM SERUM 3.8 MMOL/L (3.5-5.1); SODIUM LEVEL 138.0 MMOL/L (136-145)
[2025-01-20 09:45] VITALS: BP 159/79
[2025-01-20] MEDS ORDERED: OXYC-517 PO (12:39)
== END 2025-01-20 13:36 | DRG 907 ==
LOC: M ED 11:49 → M ED INP 11:50 → OBSVTOIN 12-28 06:39 → M MS4PR 12-28 11:15 → M PM&R 01-04 11:15 → M MS5PR 01-05 14:55
PROVIDERS: ADMIT Student in an Organized Health Care Education/Training Program; ATTEND Student in an Organized Health Care Education/Training Program
PROC: 0S990ZZ Drainage of Right Hip Joint, Open Approach (ICD-10-PCS; 2024-12-29)
PROC: 30233J1 Transfusion of Nonautologous Serum Albumin into Peripheral Vein, Percutaneous Approach (ICD-10-PCS; 2024-12-29)
PROC: 5A1D70Z Performance of Urinary Filtration, Intermittent, Less than 6 Hours Per Day (ICD-10-PCS; 2024-12-29)
PROC: 30233N1 Transfusion of Nonautologous Red Blood Cells into Peripheral Vein, Percutaneous Approach (ICD-10-PCS; 2025-01-07)
PROC: 0QP Lower Bones, Removal (ICD-10-PCS; principal; 2025-01-07 12:00)
PROC: B246ZZZ Ultrasonography of Right and Left Heart (ICD-10-PCS; 2025-01-12)
DX: T85.79XA Infection and inflammatory reaction due to other internal prosthetic devices, implants and grafts, initial encounter (principal); N18.6 End stage renal disease; I13.2 Hypertensive heart and chronic kidney disease with heart failure and with stage 5 chronic kidney disease, or end stage renal disease; I50.32 Chronic diastolic (congestive) heart failure; T81.31XA Disruption of external operation (surgical) wound, not elsewhere classified, initial encounter; M87.051 Idiopathic aseptic necrosis of right femur; L76.32 Postprocedural hematoma of skin and subcutaneous tissue following other procedure; I48.0 Paroxysmal atrial fibrillation; E11.22 Type 2 diabetes mellitus with diabetic chronic kidney disease; F17.210 Nicotine dependence, cigarettes, uncomplicated; M25.551 Pain in right hip; E78.5 Hyperlipidemia, unspecified; K76.0 Fatty (change of) liver, not elsewhere classified; I25.10 Atherosclerotic heart disease of native coronary artery without angina pectoris; B34.8 Other viral infections of unspecified site; F32.A Depression, unspecified; J44.9 Chronic obstructive pulmonary disease, unspecified; I95.9 Hypotension, unspecified; B95.61 Methicillin susceptible Staphylococcus aureus infection as the cause of diseases classified elsewhere; E11.42 Type 2 diabetes mellitus with diabetic polyneuropathy; Z96.642 Presence of left artificial hip joint; L98.499 Non-pressure chronic ulcer of skin of other sites with unspecified severity; Z99.2 Dependence on renal dialysis; Z79.01 Long term (current) use of anticoagulants; Z79.82 Long term (current) use of aspirin; Z79.4 Long term (current) use of insulin; Z79.899 Other long term (current) drug therapy; Z88.8 Allergy status to other drugs, medicaments and biological substances; Z99.3 Dependence on wheelchair; Z86.73 Personal history of transient ischemic attack (TIA), and cerebral infarction without residual deficits; G47.33 Obstructive sleep apnea (adult) (pediatric); Z95.5 Presence of coronary angioplasty implant and graft; Z95.2 Presence of prosthetic heart valve

== ENCOUNTER → 2025-02-10 | Outpatient (CLI) | payer MEDICARE, MEDICAID ==
[~2025-02-10] MED LIST changes: +METO1TAB7 PO; +OXYC-517 PO
== END ==
LOC: M SOG 07:18
PROVIDERS: ATTEND Physician Assistant
DX: T84.620A Infection and inflammatory reaction due to internal fixation device of right femur, initial encounter (principal); S72.001D Fracture of unspecified part of neck of right femur, subsequent encounter for closed fracture with routine healing; Z53.9 Procedure and treatment not carried out, unspecified reason

== ENCOUNTER → 2025-02-22 | Outpatient (CLI) | payer MEDICARE, MEDICAID | LOC: M RAD 10:21 | PROVIDERS: ATTEND Physician Assistant | DX: T84.620A Infection and inflammatory reaction due to internal fixation device of right femur, initial encounter (principal); S72.001D Fracture of unspecified part of neck of right femur, subsequent encounter for closed fracture with routine healing; Y83.1 Surgical operation with implant of artificial internal device as the cause of abnormal reaction of the patient, or of later complication, without mention of misadventure at the time of the procedure ==

== ENCOUNTER 2025-03-11 23:43 | Inpatient (IN) | payer MEDICARE, MEDICAID ==
[~2025-03-11] VITALS: Ht 182.9 cm; Wt 75.5 kg
[~2025-03-11 23:43] MED LIST changes: -AMIO100T4 PO; -COLA100C5 PO; -FERR1TAB8 PO; -LEVA1.25 INH; -LORA-1041 PO; -MIRA3350 PO; -MOM30SS2 PO; -NALL2INJ2 IV; -OLOP5DRO6 OU; -OXYC1TAB23 PO; -PROB250C PO; -SENN-188 PO; -[UNRECOGNIZED DRUG - CODE] SC
[2025-03-12] VITALS (23 sets, daily range): BP systolic 111–154; BP diastolic 55–75; TEMP 98.8–103.1; O2SAT 87–100
[2025-03-12] MEDS: UNRESOLVED CLARIFICATION ENTRY XX SCH (00:01)
[2025-03-12 00:27] LABS: VENOUS BASE EXCESS 5.1 (-2.0-2.0); VENOUS HCO3 29.1 MMOL/L (23.0-27.0); VENOUS O2 SATURATION 66.0 % (60.0-80.0); VENOUS PARTIAL PRESSURE CO2 40.3 mmHg (38.0-50.0); VENOUS PARTIAL PRESSURE O2 34.2 mmHg (30.0-50.0); VENOUS PH 7.476 UNITS (7.330-7.430); VENOUS STANDARD HCO3 28.6 MMOL/L; VENOUS TOTAL CO2 30.3 MMOL/L (24.0-28.0)
[2025-03-12] MEDS: PIPERACILLIN/TAZOBACTAM SOD 4.5 GM in DEXTROSE 5% (D5W) ADV/MINI-BAG 50 ML IV ONE (00:28)
[2025-03-12] MEDS: VANCOMYCIN HCL 1,000 MG, VIAL MATE ADAPTER 1 EACH in NS 250 ML IV ONE (00:28)
[2025-03-12 00:31] LABS: BASO # 0.0 10^3/uL (0.0-0.2); BASO % 0.2 % (0.0-1.0); EOS # 0.0 10^3/uL (0.0-0.5); EOS % 0.1 % (0.0-3.0); LYMPH # 0.7 10^3/uL (1.5-5.0); LYMPH % 4.0 % (24.0-44.0); MONO # 0.7 10^3/uL (0.0-0.8); MONO % 3.8 % (2.0-8.0); NEUTROPHILS # 16.6 10^3/uL (1.5-8.5); NEUTROPHILS % 90.9 % (36.0-66.0)
[2025-03-12 00:35] LABS: PLATELET COUNT, AUTOMATED 490 10^3/uL (150-450)
[2025-03-12 00:37] LABS: KETONE, URINE AUTO RFX NEGATIVE (NEGATIVE); LEUKOCYTE ESTERASE UR AUTO RFX NEGATIVE (NEGATIVE); NITRITE, URINE AUTO RFX NEGATIVE (NEGATIVE); RBC, URINE AUTO RFX 7 /HPF (0-3); SQUAM EPITHELIAL CELL UR AURFX 0 /HPF (0-6)
[2025-03-12 00:39] LABS: WBC, URINE AUTO RFX 47 /HPF (0-3)
[2025-03-12] MEDS: ACETAMINOPHEN *IV* 1,000 MG in IV 1 EA IV ONE ×2 (00:53→13:00)
[2025-03-12 01:04] LABS: INR 1.41
[2025-03-12 02:01] LABS: ALT/SGPT 18.0 U/L (7.0-40); AST/SGOT 28.0 U/L (<34); C REACTIVE PROTEIN QUANTITATIV 20.99 MG/DL (<1.0); CALCIUM LEVEL 8.3 MG/DL (8.5-10.1); CARBON DIOXIDE LEVEL 30.0 MMOL/L (20-31); CHLORIDE LEVEL 99.0 MMOL/L (98-107); CREATININE FOR GFR 2.3 MG/DL (0.70-1.30); GLOMERULAR FILTRATION RATE 32.5 (>56); POTASSIUM SERUM 5.1 MMOL/L (3.5-5.1); SODIUM LEVEL 139.0 MMOL/L (136-145)
[2025-03-12] MEDS: NS (Normal Saline) 0.9% 1,000 ML IV ONE (02:20)
[2025-03-12] MEDS: NS 500 ML IV ONE (02:20)
[2025-03-12] MEDS ORDERED: OSELTAMIVIR PHOSPHATE 75 MG CAP PO ONE ×2 (04:30→10:25)
[2025-03-12] MEDS: OSELTAMIVIR PHOSPHATE 30MG CAPSULE PO ONE ×2 (04:35→10:57)
[2025-03-12] MEDS ORDERED: MOM 30 ML SUSPENSION UDC PO PRN ×2 (05:15→12:15)
[2025-03-12] MEDS ORDERED: DEXTROSE 50% 50 ML SYRINGE IV PRN ×2 (05:55→11:05)
[2025-03-12] MEDS ORDERED: GLUCOSE 4 GM CHEW PO PRN ×2 (05:55→11:05)
[2025-03-12] MEDS ORDERED: GLUCAGON INJ 1 MG VIAL SC PRN ×2 (05:55→11:05)
[2025-03-12] MEDS: ACETAMINOPHEN 500 MG TAB PO PRN (05:56)
[2025-03-12] MEDS: INSULIN LISPRO (NovoLOG) PER UNIT SC SCH ×3 (06:00→20:03)
[2025-03-12] MEDS ORDERED: MIRA3350 PO (06:42)
[2025-03-12] MEDS ORDERED: LANTINJ4 SC (06:42)
[2025-03-12] MEDS ORDERED: SENN-188 PO (06:42)
[2025-03-12] MEDS ORDERED: AMIO100T4 PO (06:42)
[2025-03-12] MEDS ORDERED: LORA-1041 PO (06:42)
[2025-03-12] MEDS ORDERED: OLOP5DRO6 OU (06:42)
[2025-03-12] MEDS ORDERED: OXYC1TAB23 PO (06:47)
[2025-03-12] MEDS ORDERED: HOME MED LIST COMPLETE! XX SCH (06:50)
[2025-03-12] MEDS: VANCOMYCIN HCL 500 MG in DEXTROSE 5% (D5W) MINI-BAG PLU 100 ML IV ONE (07:44)
[2025-03-12] MEDS ORDERED: PIPERACILLIN/TAZOBACTAM SOD 3.375 GM in DEXTROSE 5% (D5W) ADV/MINI-BAG 50 ML IV SCH (08:00)
[2025-03-12] MEDS ORDERED: APIXABAN 2.5 MG TAB PO SCH (09:00)
[2025-03-12] MEDS: PIPERACILLIN/TAZOBACTAM SOD 4.5 GM in DEXTROSE 5% (D5W) ADV/MINI-BAG 50 ML IV SCH (10:51)
[2025-03-12] MEDS ORDERED: PILL CUTTER 1 EACH XX PRN (13:20)
[2025-03-12] MEDS: METOPROLOL TART 25 MG TABLET PO ONE (15:24)
[2025-03-12] MEDS: AMIODARONE 100 MG TABLET PO ONE (15:24)
[2025-03-12] MEDS: SODIUM CHLORIDE HYPERTONIC 3% 4ML NEB SOL INH SCH (15:45)
[2025-03-12] MEDS: LEVALBUTEROL 1.25 MG 0.5ML CONCENTRATE NEB INH SCH (15:45)
[2025-03-12] MEDS ORDERED: VANCOMYCIN HCL 1,000 MG, VIAL MATE ADAPTER 1 EACH in NS 250 ML IV SCH (16:00)
[2025-03-12] MEDS: SEVELAMER *CARBONate* 800 MG TAB PO SCH (17:08)
[2025-03-12] MEDS: SYMBICORT 80/4.5MCG INHALER 6GM INH SCH (19:05)
[2025-03-12] MEDS ORDERED: OSELTAMIVIR PHOSPHATE 75 MG CAP PO SCH (21:00)
[2025-03-12] MEDS: SENNA 8.6 MG TAB PO SCH (21:29)
[2025-03-12] MEDS: ATORVASTATIN 20 MG TAB PO SCH (21:30)
[2025-03-13] VITALS (37 sets, daily range): BP systolic 104–165; BP diastolic 53–110; TEMP 98.2–104.2; O2SAT 90–100
[2025-03-13] MEDS: PERCOCET 5MG/325MG TAB PO PRN (06:55)
[2025-03-13] MEDS: MIRALAX *UNIT DOSE* 17 GM PACKET PO SCH (08:09)
[2025-03-13] MEDS: AMIODARONE 100 MG TABLET PO SCH (08:09)
[2025-03-13] MEDS: LORATADINE 10 MG TAB PO SCH (08:10)
[2025-03-13] MEDS: EZETIMIBE 10 MG TABLET PO SCH (08:10)
[2025-03-13] MEDS: ESCITALOPRAM OXALATE 10 MG TABLET PO SCH (08:10)
[2025-03-13] MEDS: ASPIRIN 81 MG ENTERIC TABLET PO SCH (08:10)
[2025-03-13] MEDS: METOPROLOL SUCC. 50 MG *XL* TAB PO SCH (08:11)
[2025-03-13] MEDS: GABAPENTIN 400 MG CAP PO SCH (08:11)
[2025-03-13] MEDS: FAMOTIDINE 20 MG TAB PO SCH (08:16)
[2025-03-13 08:23] LABS: BASO # 0.0 10^3/uL (0.0-0.2); BASO % 0.3 % (0.0-1.0); EOS # 0.3 10^3/uL (0.0-0.5); EOS % 2.5 % (0.0-3.0); LYMPH # 0.4 10^3/uL (1.5-5.0); LYMPH % 3.7 % (24.0-44.0); MONO # 0.5 10^3/uL (0.0-0.8); MONO % 4.1 % (2.0-8.0); NEUTROPHILS # 10.7 10^3/uL (1.5-8.5); NEUTROPHILS % 88.7 % (36.0-66.0); PLATELET COUNT, AUTOMATED 318 10^3/uL (150-450)
[2025-03-13 08:43] LABS: CALCIUM LEVEL 7.8 MG/DL (8.5-10.1); CARBON DIOXIDE LEVEL 27.0 MMOL/L (20-31); CHLORIDE LEVEL 101.0 MMOL/L (98-107); CREATININE FOR GFR 3.75 MG/DL (0.70-1.30); GLOMERULAR FILTRATION RATE 18.1 (>56); MAGNESIUM LEVEL 2.0 MG/DL (1.8-2.4); POTASSIUM SERUM 4.2 MMOL/L (3.5-5.1); SODIUM LEVEL 140.0 MMOL/L (136-145)
[2025-03-13] MEDS: OLOPATADINE 0.1% OPHTH SOL 5ML OU SCH (09:00)
[2025-03-13] MEDS ORDERED: HEPARIN SOD 5000 UNITS/ML 1 ML VIAL/SYRINGE IV PRN (18:00)
[2025-03-13 18:56] LABS: BASO # 0.1 10^3/uL (0.0-0.2); BASO % 0.4 % (0.0-1.0); EOS # 0.3 10^3/uL (0.0-0.5); EOS % 2.3 % (0.0-3.0); LYMPH # 0.5 10^3/uL (1.5-5.0); LYMPH % 3.3 % (24.0-44.0); MONO # 0.6 10^3/uL (0.0-0.8); MONO % 4.1 % (2.0-8.0); NEUTROPHILS # 12.1 10^3/uL (1.5-8.5); NEUTROPHILS % 88.9 % (36.0-66.0); PLATELET COUNT, AUTOMATED 385 10^3/uL (150-450); PLATELET COUNT, AUTOMATED 396 10^3/uL (150-450)
[2025-03-13] MEDS: HEPARIN DRIP 25,000 UNITS in IV 1 EA IV SCH (19:49)
[2025-03-13] MEDS: cefTRIAXone SOD 2 GM in DEXTROSE 5% (D5W) ADV/MINI-BAG 50 ML IV SCH (21:01)
[2025-03-14] VITALS (16 sets, daily range): BP systolic 123–176; BP diastolic 59–76; TEMP 98.1–100.4; O2SAT 92–100
[2025-03-14 02:33] LABS: INR 1.2
[2025-03-14] MEDS ORDERED: LIDOCAINE 1% SDV 5 ML VIAL SC PRN (06:00)
[2025-03-14] MEDS ORDERED: SODIUM CHLORIDE 0.9% 1000 ML IV PRN (06:00)
[2025-03-14 08:12] LABS: BASO # 0.0 10^3/uL (0.0-0.2); BASO % 0.2 % (0.0-1.0); EOS # 0.3 10^3/uL (0.0-0.5); EOS % 2.9 % (0.0-3.0); LYMPH # 0.8 10^3/uL (1.5-5.0); LYMPH % 8.4 % (24.0-44.0); MONO # 0.7 10^3/uL (0.0-0.8); MONO % 7.0 % (2.0-8.0); NEUTROPHILS # 7.6 10^3/uL (1.5-8.5); NEUTROPHILS % 80.2 % (36.0-66.0)
[2025-03-14 08:13] LABS: PLATELET COUNT, AUTOMATED 247 10^3/uL (150-450)
[2025-03-14 08:29] LABS: ALT/SGPT 11.0 U/L (7.0-40); AST/SGOT 22.0 U/L (<34); CALCIUM LEVEL 7.2 MG/DL (8.5-10.1); CARBON DIOXIDE LEVEL 25.0 MMOL/L (20-31); CHLORIDE LEVEL 98.0 MMOL/L (98-107); CREATININE FOR GFR 4.1 MG/DL (0.70-1.30); GLOMERULAR FILTRATION RATE 16.3 (>56); MAGNESIUM LEVEL 2.0 MG/DL (1.8-2.4); POTASSIUM SERUM 4.1 MMOL/L (3.5-5.1); SODIUM LEVEL 136.0 MMOL/L (136-145); VANCOMYCIN RANDOM 10.4 UG/ML
[2025-03-14] MEDS: HEPARIN 1,000 UNITS/ML 10 ML VIAL (FOR RADIOLOGY & DIALYSIS ONLY) XX SCH (09:32)
[2025-03-14] MEDS: HEPARIN 1,000 UNITS/ML 10 ML VIAL (FOR RADIOLOGY & DIALYSIS ONLY) IV PRN (09:33)
[2025-03-14] MEDS ORDERED: ACETAMINOPHEN *IV* 1,000 MG in IV 1 EA IV PRN (14:30)
[2025-03-14] MEDS: **NOTE PATIENT COMMENT** MISC XX SCH (16:00)
[2025-03-14] MEDS: OSELTAMIVIR PHOSPHATE 30MG CAPSULE PO SCH (17:21)
[2025-03-14] MEDS: ceFAZolin SOD 1 GM in DEXTROSE 5% (D5W) ADV/MINI-BAG 50 ML IV SCH (20:12)
[2025-03-14] MEDS ORDERED: ceFAZolin SODIUM 2 GM in DEXTROSE 5% (D5W) ADV/MINI-BAG 50 ML IV SCH (21:00)
[2025-03-14] MEDS: GENTAMICIN 80 MG in D5W 100 ML IV SCH (21:08)
[2025-03-15] VITALS (26 sets, daily range): BP systolic 137–157; BP diastolic 60–72; TEMP 97.9–99.2; O2SAT 90–100
[2025-03-15 06:50] LABS: BASO # 0.0 10^3/uL (0.0-0.2); BASO % 0.2 % (0.0-1.0); EOS # 0.2 10^3/uL (0.0-0.5); EOS % 2.7 % (0.0-3.0); LYMPH # 0.9 10^3/uL (1.5-5.0); LYMPH % 10.9 % (24.0-44.0); MONO # 0.7 10^3/uL (0.0-0.8); MONO % 8.5 % (2.0-8.0); NEUTROPHILS # 6.2 10^3/uL (1.5-8.5); NEUTROPHILS % 76.8 % (36.0-66.0); PLATELET COUNT, AUTOMATED 235 10^3/uL (150-450)
[2025-03-15 07:27] LABS: ALT/SGPT 10.0 U/L (7.0-40); AST/SGOT 24.0 U/L (<34); CALCIUM LEVEL 7.3 MG/DL (8.5-10.1); CARBON DIOXIDE LEVEL 27.0 MMOL/L (20-31); CHLORIDE LEVEL 101.0 MMOL/L (98-107); CREATININE FOR GFR 2.65 MG/DL (0.70-1.30); GLOMERULAR FILTRATION RATE 27.4 (>56); MAGNESIUM LEVEL 1.9 MG/DL (1.8-2.4); POTASSIUM SERUM 3.8 MMOL/L (3.5-5.1); SODIUM LEVEL 138.0 MMOL/L (136-145)
[2025-03-15] MEDS ORDERED: LIDOCAINE 1% SDV 5 ML VIAL SC PRN (18:25)
[2025-03-15] MEDS ORDERED: HEPARIN 1,000 UNITS/ML 10 ML VIAL (FOR RADIOLOGY & DIALYSIS ONLY) IV PRN (18:25)
[2025-03-15] MEDS ORDERED: HEPARIN 1,000 UNITS/ML 10 ML VIAL (FOR RADIOLOGY & DIALYSIS ONLY) XX SCH (18:25)
[2025-03-15] MEDS ORDERED: SODIUM CHLORIDE 0.9% 1000 ML IV PRN (18:25)
[2025-03-15 20:51] LABS: IRON (FE) 40.0 UG/DL (65-175); PERCENT SATURATION 24.2 % (19.7-50.0)
[2025-03-15 20:56] LABS: VITAMIN B12 LEVEL 771.0 PG/ML (211-911)
[2025-03-16] VITALS (29 sets, daily range): BP systolic 140–180; BP diastolic 74–111; TEMP 98–100.9; O2SAT 90–100
[2025-03-16 04:10] LABS: GENTAMICIN LEVEL RANDOM 1.1 UG/ML
[2025-03-16 04:17] LABS: ALT/SGPT < 9 U/L (7.0-40); AST/SGOT 23 U/L (<34); CALCIUM LEVEL 7.3 MG/DL (8.5-10.1); CARBON DIOXIDE LEVEL 25 MMOL/L (20-31); CHLORIDE LEVEL 105 MMOL/L (98-107); CREATININE FOR GFR 3.24 MG/DL (0.70-1.30); GLOMERULAR FILTRATION RATE 21.6 (>56); MAGNESIUM LEVEL 2.0 MG/DL (1.8-2.4); POTASSIUM SERUM 4.3 MMOL/L (3.5-5.1); SODIUM LEVEL 140 MMOL/L (136-145)
[2025-03-16 04:41] LABS: BASO # 0.0 10^3/uL (0.0-0.2); BASO % 0.3 % (0.0-1.0); EOS # 0.2 10^3/uL (0.0-0.5); EOS % 2.4 % (0.0-3.0); LYMPH # 1.0 10^3/uL (1.5-5.0); LYMPH % 11.2 % (24.0-44.0); MONO # 0.6 10^3/uL (0.0-0.8); MONO % 6.2 % (2.0-8.0); NEUTROPHILS # 7.3 10^3/uL (1.5-8.5); NEUTROPHILS % 78.7 % (36.0-66.0)
[2025-03-16 05:07] LABS: PLATELET COUNT, AUTOMATED 277 10^3/uL (150-450)
[2025-03-16 07:55] LABS: C REACTIVE PROTEIN QUANTITATIV 7.47 MG/DL (<1.0)
[2025-03-16] MEDS: DOCUSATE SODIUM 100 MG CAPSULE PO SCH (14:00)
[2025-03-16] MEDS: FERROUS SULFATE 325 MG TAB PO SCH (14:00)
[2025-03-16] MEDS ORDERED: LIDOCAINE 2% 100 MG/5 ML SDV (FOR ANES.) As Ordered ONE (15:02)
[2025-03-16] MEDS ORDERED: MIDAZOLAM INJ 2 MG/2 ML VIAL As Ordered ONE (15:02)
[2025-03-16] MEDS: CETACAINE SPRAY 5 GM As Ordered ONE (15:35)
[2025-03-16] MEDS: GENTAMICIN 80 MG in D5W 100 ML IV SCH (17:23)
[2025-03-16 18:38] LABS: PLATELET COUNT, AUTOMATED 224 10^3/uL (150-450)
[2025-03-17] VITALS (26 sets, daily range): BP systolic 154–166; BP diastolic 72–95; TEMP 97.4–98.8; O2SAT 92–100
[2025-03-17 06:28] LABS: BASO # 0.0 10^3/uL (0.0-0.2); BASO % 0.3 % (0.0-1.0); EOS # 0.1 10^3/uL (0.0-0.5); EOS % 1.4 % (0.0-3.0); LYMPH # 1.0 10^3/uL (1.5-5.0); LYMPH % 11.2 % (24.0-44.0); MONO # 0.6 10^3/uL (0.0-0.8); MONO % 7.0 % (2.0-8.0); NEUTROPHILS # 6.8 10^3/uL (1.5-8.5); NEUTROPHILS % 78.8 % (36.0-66.0); PLATELET COUNT, AUTOMATED 227 10^3/uL (150-450)
[2025-03-17 06:55] LABS: ALT/SGPT < 9 U/L (7.0-40); AST/SGOT 13 U/L (<34); CALCIUM LEVEL 7.5 MG/DL (8.5-10.1); CARBON DIOXIDE LEVEL 26 MMOL/L (20-31); CHLORIDE LEVEL 104 MMOL/L (98-107); CREATININE FOR GFR 2.35 MG/DL (0.70-1.30); GLOMERULAR FILTRATION RATE 31.7 (>56); MAGNESIUM LEVEL 1.9 MG/DL (1.8-2.4); POTASSIUM SERUM 3.6 MMOL/L (3.5-5.1); SODIUM LEVEL 139 MMOL/L (136-145)
[2025-03-17] MEDS: HEPARIN 1,000 UNITS/ML 10 ML VIAL (FOR RADIOLOGY & DIALYSIS ONLY) IV PRN ×2 (13:14→13:18)
[2025-03-17] MEDS: SODIUM CHLORIDE NASAL 0.65% SPRAY BTL (OCEAN) SCH (19:00)
[2025-03-18] VITALS (16 sets, daily range): BP systolic 150–166; BP diastolic 72–79; TEMP 98.2–98.9; O2SAT 94–97
[2025-03-18 06:18] LABS: BASO # 0.0 10^3/uL (0.0-0.2); BASO % 0.4 % (0.0-1.0); EOS # 0.3 10^3/uL (0.0-0.5); EOS % 2.6 % (0.0-3.0); LYMPH # 1.1 10^3/uL (1.5-5.0); LYMPH % 11.7 % (24.0-44.0); MONO # 0.7 10^3/uL (0.0-0.8); MONO % 7.1 % (2.0-8.0); NEUTROPHILS # 7.3 10^3/uL (1.5-8.5); NEUTROPHILS % 76.3 % (36.0-66.0); PLATELET COUNT, AUTOMATED 232 10^3/uL (150-450)
[2025-03-18 06:44] LABS: ALT/SGPT < 9 U/L (7.0-40); AST/SGOT 12 U/L (<34); CALCIUM LEVEL 7.3 MG/DL (8.5-10.1); CARBON DIOXIDE LEVEL 24 MMOL/L (20-31); CHLORIDE LEVEL 104 MMOL/L (98-107); CREATININE FOR GFR 3.03 MG/DL (0.70-1.30); GLOMERULAR FILTRATION RATE 23.2 (>56); MAGNESIUM LEVEL 2.0 MG/DL (1.8-2.4); POTASSIUM SERUM 3.8 MMOL/L (3.5-5.1); SODIUM LEVEL 138 MMOL/L (136-145)
[2025-03-18] MEDS ORDERED: SODIUM CHLORIDE 0.9% 1000 ML IV PRN (08:00)
[2025-03-18] MEDS ORDERED: HEPARIN 1,000 UNITS/ML 10 ML VIAL (FOR RADIOLOGY & DIALYSIS ONLY) IV PRN (08:00)
[2025-03-18] MEDS ORDERED: LIDOCAINE 1% SDV 5 ML VIAL SC PRN (08:00)
[2025-03-18 11:24] LABS: C REACTIVE PROTEIN QUANTITATIV 6.17 MG/DL (<1.0)
[2025-03-18] MEDS: HEPARIN 1,000 UNITS/ML 10 ML VIAL (FOR RADIOLOGY & DIALYSIS ONLY) XX SCH (14:09)
[2025-03-18] MEDS ORDERED: [UNRECOGNIZED DRUG - CODE] SC (14:56)
[2025-03-18] MEDS ORDERED: LEVA1.25 INH (14:56)
[2025-03-18] MEDS ORDERED: MOM30SS2 PO (14:56)
[2025-03-18] MEDS ORDERED: FERR1TAB8 PO (14:56)
[2025-03-18] MEDS ORDERED: NALL2INJ2 IV (14:56)
[2025-03-18] MEDS ORDERED: COLA100C5 PO (14:56)
[2025-03-18] MEDS ORDERED: INSUHUMDS SC ×2 (14:56)
[2025-03-18] MEDS ORDERED: PROB250C PO (14:58)
[2025-03-18] MEDS: OSELTAMIVIR PHOSPHATE 30MG CAPSULE PO ONE (17:54)
== END 2025-03-18 19:00 | disposition short-term general hospital (02) | DRG 871 ==
LOC: EDBD 23:43 → M ED 23:43 → M ED INP 03-12 05:12 → EEVIPCON 03-12 05:12 → M PCU 03-12 08:02
PROVIDERS: ADMIT Student in an Organized Health Care Education/Training Program; ATTEND Internal Medicine
PROC: 30233N1 Transfusion of Nonautologous Red Blood Cells into Peripheral Vein, Percutaneous Approach (ICD-10-PCS; 2025-03-13)
PROC: B245ZZ4 Ultrasonography of Left Heart, Transesophageal (ICD-10-PCS; principal; 2025-03-16 07:30)
DX: A41.01 Sepsis due to Methicillin susceptible Staphylococcus aureus (principal); J96.01 Acute respiratory failure with hypoxia; I33.0 Acute and subacute infective endocarditis; N18.6 End stage renal disease; J18.9 Pneumonia, unspecified organism; G93.41 Metabolic encephalopathy; L89.153 Pressure ulcer of sacral region, stage 3; I50.30 Unspecified diastolic (congestive) heart failure; D62 Acute posthemorrhagic anemia; I13.2 Hypertensive heart and chronic kidney disease with heart failure and with stage 5 chronic kidney disease, or end stage renal disease; K86.1 Other chronic pancreatitis; J10.1 Influenza due to other identified influenza virus with other respiratory manifestations; R65.20 Severe sepsis without septic shock; E11.22 Type 2 diabetes mellitus with diabetic chronic kidney disease; I48.91 Unspecified atrial fibrillation; E11.42 Type 2 diabetes mellitus with diabetic polyneuropathy; R04.0 Epistaxis; Z79.4 Long term (current) use of insulin; G47.33 Obstructive sleep apnea (adult) (pediatric); K76.0 Fatty (change of) liver, not elsewhere classified; Z79.01 Long term (current) use of anticoagulants; Z86.73 Personal history of transient ischemic attack (TIA), and cerebral infarction without residual deficits; D63.1 Anemia in chronic kidney disease; Z79.899 Other long term (current) drug therapy; Z79.82 Long term (current) use of aspirin; Z88.8 Allergy status to other drugs, medicaments and biological substances; K59.00 Constipation, unspecified; R33.9 Retention of urine, unspecified; Z96.642 Presence of left artificial hip joint; F17.200 Nicotine dependence, unspecified, uncomplicated

== ENCOUNTER → 2025-03-11 | Outpatient (REF) | payer MEDICARE, MEDICAID ==
[~2025-03-11] MED LIST changes: +AMIO100T4 PO; +COLA100C5 PO; +FERR1TAB8 PO; +LEVA1.25 INH; +LORA-1041 PO; +MIRA3350 PO; +MOM30SS2 PO; +NALL2INJ2 IV; +OLOP5DRO6 OU; +OXYC1TAB23 PO; +PROB250C PO; +SENN-188 PO; +[UNRECOGNIZED DRUG - CODE] SC
[2025-03-11 22:31] LABS: BASO # 0.1 10^3/uL (0.0-0.2); BASO % 0.3 % (0.0-1.0); EOS # 0.0 10^3/uL (0.0-0.5); EOS % 0.2 % (0.0-3.0); LYMPH # 0.7 10^3/uL (1.5-5.0); LYMPH % 4.5 % (24.0-44.0); MONO # 0.8 10^3/uL (0.0-0.8); MONO % 5.7 % (2.0-8.0); NEUTROPHILS # 12.9 10^3/uL (1.5-8.5); NEUTROPHILS % 88.5 % (36.0-66.0); PLATELET COUNT, AUTOMATED 382 10^3/uL (150-450)
[2025-03-11 23:10] LABS: ALT/SGPT 17.0 U/L (7.0-40); AST/SGOT 20.0 U/L (<34); CALCIUM LEVEL 7.8 MG/DL (8.5-10.1); CARBON DIOXIDE LEVEL 31.0 MMOL/L (20-31); CHLORIDE LEVEL 100.0 MMOL/L (98-107); CREATININE FOR GFR 2.19 MG/DL (0.70-1.30); GLOMERULAR FILTRATION RATE 34.5 (>56); POTASSIUM SERUM 4.3 MMOL/L (3.5-5.1); SODIUM LEVEL 140.0 MMOL/L (136-145)
== END ==
LOC: SKLAB2 19:30
PROVIDERS: ATTEND Nurse Practitioner Women's Health
DX: R50.9 Fever, unspecified (principal)